=== PATIENT | female | born 1970 | race Caucasian/White ===

== ENCOUNTER → 2019-01-21 | Outpatient (CLI) | payer MEDICARE, OTHER ==
--- NOTE | 2019-01-21 13:21 | CT ---
EXAMINATION TYPE: CT abdomen pelvis wo con DATE OF EXAM: 01/21/2019 COMPARISON: 07/06/2015 HISTORY: Right sided pain with occasional bulging. CT DLP: 724 mGycm Automated exposure control for dose reduction was used. TECHNIQUE: Helical acquisition of images was performed from the lung bases through the pelvis. FINDINGS: LOWER THORAX: Bilateral breast implants are partially visualized. Few coronary calcifications are see n. Postsurgical changes of the gastroesophageal junction are noted. Lung bases are well aerated. LIVER/GB: Unremarkable unenhanced morphology. Cholecystectomy clips are seen. PANCREAS: No significant abnormality is seen. SPLEEN: No significant abnormality is seen. ADRENALS: There is a lipid rich 1.4 cm left adrenal adenoma. Right adrenal gland is unremarkable. KIDNEYS: No nephrolithiasis or hydronephrosis is seen. FREE AIR: No free air is visualized ADENOPATHY: Numerous sub-5 mm periaortic and retroperitoneal as well as central mesenteric lymph nod es are present. No greater than 1 cm short axis lymph node is seen in the abdomen or pelvis although portions of the pelvis are obscured by spray artifact from the right hip arthroplasty and limited. URINARY BLADDER: No significant abnormality is seen. OSSEOUS STRUCTURES: Postsurgical change of the spine is present with donor site from the right iliac bone from prior autograft. Right femoral arthroplasty is also present. BOWEL: Bowel is suboptimally evaluated without contrast. Portions of the descending colon are decomp ressed further limiting evaluation. Evaluation of the mass was nondiagnostic. Partial colectomy is se en within the right hemicolon. No dilated large or small bowel. No perienteric or pericolonic fat str anding. No intra-abdominal abscess is seen. OTHER: Atrophy is seen within the anterior left hip musculature IMPRESSION: Postsurgical changes of the colon with no evidence for acute inflammatory process nor obs truction.
== END | disposition home or self-care (01) ==
LOC: RADCTMAIN 11:55
PROVIDERS: ATTEND Surgery Plastic and Reconstructive Surgery
DX: K57.32 Diverticulitis of large intestine without perforation or abscess without bleeding (principal); Z90.49 Acquired absence of other specified parts of digestive tract
CPT/HCPCS: 74176

== ENCOUNTER 2019-02-18 08:36 | Day surgery (SDC) | payer MEDICARE, OTHER ==
[2019-01-28 10:23] VITALS: BMI 20.3
--- NOTE | 2019-02-17 20:36 | P.GSHP ---
History of Present Illness H&P Date: 02/18/19 CHIEF COMPLAINT: GERD and colon screen HISTORY OF PRESENT ILLNESS: The patient is a 48-year-old female who presents with gastroesophageal reflux disease and need for colon screen. Upper and lower endoscopy were offered for further evaluation and management. PAST MEDICAL HISTORY: Please see list. PAST SURGICAL HISTORY: Please see list. MEDICATIONS: Please see list. ALLERGIES: Please see list. SOCIAL HISTORY: No illicit drug use FAMILY HISTORY: No reports of Crohn disease or ulcerative colitis. REVIEW OF ORGAN SYSTEMS: CONSTITUTIONAL: No reports of fevers or chills. GI: Denies any blood in stools or constipation. PHYSICAL EXAM: VITAL SIGNS: Stable GENERAL: Well-developed pleasant in no acute distress. HEENT: No scleral icterus. Extraocular movements grossly intact. Moist buccal mucosa. NECK: Supple without lymphadenopathy. CHEST: Unlabored respirations. Equal bilateral excursions. CARDIOVASCULAR: Regular rate and rhythm. Distal 2+ pulses. ABDOMEN: Soft, nondistended. MUSCULOSKELETAL: No clubbing, cyanosis, or edema. ASSESSMENT: 1. Gastroesophageal reflux disease 2. Colon screen. PLAN: 1. 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 hx of sepsis 2018, states from staph infection History of Any Multi-Drug Resistant Organisms: None Reported Past Surgical History: Appendectomy, Back Surgery, Bariatric Surgery, Bowel Resection, Breast Surgery, Cholecystectomy, Hysterectomy, Joint Replacement, Orthopedic Surgery, Tonsillectomy, Tubal Ligation Additional Past Surgical History / Comment(s): josy mastectomy, lymph nodes out on left side,thyroidectomy,back surgery X 5,Gastric Bypass Surgery (Mynor-en-Y) 2004 at [facility] by Dr. Vargas, bowel resection in January 2015 due to perf with colonoscopy, incisional HERNIA (02/2015), VENTRAL HERNIA (07/2015), R ankle surgery x 2, L breast bx, tummy tuck, thyroid bx, knee arthroscopy (unsure which), bx R clavicle. rt shoulder x2, neck fusion x2, josy wrist carpal tunnel, josy elbow sx, mediport in and out now. metal in neck and back. rt hip replacement, out with spacer, and back in again Past Anesthesia/Blood Transfusion Reactions: No Reported Reaction Additional Past Anesthesia/Blood Transfusion Reaction / Comment(s): blood transfusion in past Past Psychological History: Anxiety, Depression Additional Psychological History / Comment(s): . Smoking Status: Former smoker Past Alcohol Use History: Rare Additional Past Alcohol Use History / Comment(s): SMOKED APPROX 2YRS A TEEN Past Drug Use History: Marijuana Additional Drug Use History / Comment(s): occasional use, instructed to hold 24 hrs prior to procedure - Past Family History Mother Family Medical History: Cancer Additional Family Medical History / Comment(s): BILE DUCT CANCER- of at age 59 yrs. Father Family Medical History: Coronary Artery Disease (CAD), Hypertension Additional Family Medical History / Comment(s): CABG 2015 Sister(s) Family Medical History: Cancer Additional Family Medical History / Comment(s): BREAST CANCER Medications and Allergies Home Medications Medication Instructions Recorded Confirmed Type Ferrous Sulfate [Feosol] 325 mg PO BID 05/22/14 02/16/19 History Budesonide-Formot 160-4.5 Mcg 2 puff INHALATION RT-BID PRN 03/28/15 02/16/19 History [Symbicort 160-4.5 Mcg Inhaler] Cholecalciferol [Vitamin D3 (25 2,000 unit PO MO 11/22/15 02/16/19 History Mcg = 1000 Iu)] Exemestane [Aromasin] 25 mg PO DAILY 11/22/15 02/16/19 History Melatonin 3 mg PO HS 11/22/15 02/16/19 History Ibuprofen [Motrin] 800 mg PO TID 02/08/16 02/16/19 History Potassium Chloride ER [K-Dur 20] 20 meq PO DAILY 02/08/16 02/16/19 History Divalproex [Depakote] 500 mg PO BID #60 tablet. 02/09/16 02/16/19 Rx Albuterol Nebulized [Ventolin 2.5 mg INHALATION Q6H PRN 01/28/19 02/16/19 History Nebulized] Alendronate Sodium [Fosamax] 70 mg PO MO 01/28/19 02/16/19 History Levothyroxine Sodium [Synthroid] 200 mcg PO DAILY 01/28/19 02/16/19 History Omeprazole [PriLOSEC] 40 mg PO BID 01/28/19 02/16/19 History Sucralfate [Carafate] 1 gm PO ACHS 01/28/19 02/16/19 History buPROPion XL [Wellbutrin Xl] 300 mg PO QAM 01/28/19 02/16/19 History Allergies Allergy/AdvReac Type Severity Reaction Status Date / Time Iodinated Contrast- Oral and Allergy Unknown Rash/Hives Verified 02/16/19 11:23 IV Dye [Iodinated Contrast Media - IV Dye] Penicillins Allergy Rash/Hives/ Verified 02/16/19 11:23 VOMITING tetracycline Allergy Rash/Hives/ Verified 02/16/19 11:23 VOMITING duloxetine HCl AdvReac Nausea & Verified 02/16/19 11:23 [From Cymbalta] Vomiting
[~2019-02-18 08:36] MED LIST: LACTATED RINGERS 1,000 ML IV SCH; LIDOCAINE 1% 20 ML VIAL (10MG/ML) FOR IV START INTRADERMA PRN
[2019-02-18 08:57] VITALS: TEMP 98.1
[2019-02-18] MEDS ORDERED: fentaNYL (PF) 50 MCG/ML 2 ML AMP IV ONE (09:29)
[2019-02-18] MEDS ORDERED: PROPOFOL 10 MG/ML 20 ML VIAL IV ONE (09:45)
[2019-02-18] MEDS ORDERED: LIDOCAINE 1% INJ 10MG/ML (20 ML MDV) ONE (09:45)
[2019-02-18 10:26] VITALS: BP 116/85; PULSE 82; RESP 18
[2019-02-18 10:57] LABS: HCT 34.4 % (34.0-46.0); HGB 11.5 gm/dL (11.4-16.0); MCHC 33.3 g/dL (31.0-37.0); MCV 95.9 fL (80.0-100.0); Mean Platelet Volume 7.7; Platelet Count 292 k/uL (150-450); RBC 3.59 m/uL (3.80-5.40); RDW 13.7 % (11.5-15.5); WBC 6.9 k/uL (3.8-10.6)
[2019-02-18 11:14] LABS: INR 0.9 (<1.2); Prothrombin Time 9.7 sec (9.0-12.0)
[2019-02-18 11:17] LABS: Partial Thromboplastin Time 21.8 sec (22.0-30.0)
--- NOTE | 2019-02-18 11:17 | P.PCN ---
Date of Procedure: 02/18/19 Description of Procedure: PREOPERATIVE DIAGNOSIS: Dysphagia. Nausea with vomiting. POSTOPERATIVE DIAGNOSIS: Dysphagia. Morbid obesity. Gastrojejunal stricture without chronic ulcer without perforation OPERATION: Esophagogastrojejunoscopy with balloon dilatation from 16 to 20 mm. Esophagogastrojejunoscopy with cold biopsy forceps Mynor jejunal limb SURGEON: Jacy Maldonado MD ANESTHESIA: MAC. INDICATIONS: The patient is a 48-year-old female who presents with a history of dysphagia, including new-onset nausea and vomiting. Benefits and risks of the procedure were described. Informed consent was obtained. DESCRIPTION: The patient was brought into the endoscopy suite and laid in the left lateral decubitus position. After a timeout was confirmed, the procedure was initiated. An Olympus gastroscope was passed along the posterior oropharynx down to the distal esophagus where the squamocolumnar junction was unremarkable. The gastric pouch was entered. A gastrojejunal stricture of 12 mm was found as the adult gastroscope was 16 mm in size. A [employer] balloon dilator was placed through the scope. Final insufflation up to 20 mm was performed with a total of 2 minutes. The scope was advanced up to 60 cm from the incisors into the Mynor limb with cold forceps biopsies obtained with hemosiderin found along the mucosa. The mucosa of the gastrojejunal anastomosis was intact. No chronic gastrojejunal marginal ulcer was encountered. No full-thickness injury was encountered. The GI tract was desufflated. The patient tolerated the procedure well. FINDINGS: Squamocolumnar junction with chronic erosive esophagitis, LA grade B Long blind jejunal limb 8 cm Stricture of approximately 16 mm encountered. No chronic gastrojejunal ulceration encountered. Successful balloon dilatation to 20 mm. The scope was advanced up to 60 cm from the incisors into the Mynor limb with cold forceps biopsies obtained with hemosiderin found along the mucosa. RECOMMENDATIONS: Upper endoscopy as needed.
--- NOTE | 2019-02-18 11:26 | P.PCN ---
Date of Procedure: 02/18/19 Description of Procedure: PREOPERATIVE DIAGNOSIS: Colonoscopy screening. 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 SURGEON: Jacy Maldonado MD. ANESTHESIA: MAC. INDICATIONS: The patient is a 48-year-old female who presents for colonoscopy screening. Last colonoscopy 5 years ago. Benefits and risks were described and informed consent was obtained. DESCRIPTION OF PROCEDURE: The patient had undergone Gatorade, MiraLAX and Dulcolax prep. She had been brought into the operating room and laid in the left lateral decubitus position. After adequate intravenous sedation, the rectum was examined with 2% lidocaine jelly. No external hemorrhoids were encountered. The rectal tone was within n ormal limits. No lesions were palpated in the rectal vault. An Olympus colonoscope was advanced until the ileocolic anastomosis was clearly viewed. The prep was fair. The scope was removed with visualization of each mucosal fold. No scattered diverticulosis was encountered. No colonic polyps were found. No evidence of focal colitis was found. Retroflexion of the scope demonstrated grade 1 internal hemorrhoids without active bleeding or inflammation. The colon was desufflated. The patient had tolerated the procedure well. Withdrawal time was over 6 minutes. FINDINGS: Aronchick preparation quality scale 3 (1-5) No internal hemorrhoids No external prolapsed hemorrhoids. No arteriovenous malformations. No adenomatous polyps. No focal colitis. RECOMMENDATIONS: Lower endoscopy in 1 year for history of Zimmer syndrome, high risk for recurrent colon cancer Plan - Discharge Summary Discharge Rx Participant: No New Discharge Prescriptions: No Action Ferrous Sulfate [Feosol] 325 mg PO BID Budesonide-Formot 160-4.5 Mcg [Symbicort 160-4.5 Mcg Inhaler] 2 puff INHALATION RT-BID PRN PRN Reason: Shortness Of Breath Cholecalciferol [Vitamin D3 (25 Mcg = 1000 Iu)] 2,000 unit PO MO Melatonin 3 mg PO HS Exemestane [Aromasin] 25 mg PO DAILY Potassium Chloride ER [K-Dur 20] 20 meq PO DAILY Ibuprofen [Motrin] 800 mg PO TID Divalproex [Depakote] 500 mg PO BID #60 tablet. buPROPion XL [Wellbutrin Xl] 300 mg PO QAM Sucralfate [Carafate] 1 gm PO ACHS Omeprazole [PriLOSEC] 40 mg PO BID Levothyroxine Sodium [Synthroid] 200 mcg PO DAILY Alendronate Sodium [Fosamax] 70 mg PO MO Albuterol Nebulized [Ventolin Nebulized] 2.5 mg INHALATION Q6H PRN PRN Reason: Shortness Of Breath Discharge Medication List Ferrous Sulfate [Feosol] 325 mg PO BID 05/22/14 [History] Budesonide-Formot 160-4.5 Mcg [Symbicort 160-4.5 Mcg Inhaler] 2 puff INHALATION RT-BID PRN 03/28/15 [History] Cholecalciferol [Vitamin D3 (25 Mcg = 1000 Iu)] 2,000 unit PO MO 11/22/15 [History] Exemestane [Aromasin] 25 mg PO DAILY 11/22/15 [History] Melatonin 3 mg PO HS 11/22/15 [History] Ibuprofen [Motrin] 800 mg PO TID 02/08/16 [History] Potassium Chloride ER [K-Dur 20] 20 meq PO DAILY 02/08/16 [History] Divalproex [Depakote] 500 mg PO BID #60 tablet. 02/09/16 [Rx] Albuterol Nebulized [Ventolin Nebulized] 2.5 mg INHALATION Q6H PRN 01/28/19 [History] Alendronate Sodium [Fosamax] 70 mg PO MO 01/28/19 [History] Levothyroxine Sodium [Synthroid] 200 mcg PO DAILY 01/28/19 [History] Omeprazole [PriLOSEC] 40 mg PO BID 01/28/19 [History] Sucralfate [Carafate] 1 gm PO ACHS 01/28/19 [History] buPROPion XL [Wellbutrin Xl] 300 mg PO QAM 01/28/19 [History] Follow up Appointment(s)/Referral(s): Jacy Maldonado MD [STAFF PHYSICIAN] - 03/09/19 Patient Instructions/Handouts: *Surgery [facility] - (Anesthesia) Endoscopy Discharge Instructions, Hiatal Hernia (DC), Colonoscopy (DC), Upper Endoscopy (DC) Activity/Diet/Wound Care/Special Instructions: Repeat colonoscopy in 1 year2019 Discharge Disposition: HOME SELF-CARE
[2019-02-18 11:34] LABS: ALT 27 U/L (9-52); AST 17 U/L (14-36); Albumin 4.4 g/dL (3.5-5.0); Alkaline Phosphatase 79 U/L (38-126); Anion Gap 10 mmol/L; Blood Urea Nitrogen 17 mg/dL (7-17); Calcium 9.1 mg/dL (8.4-10.2); Carbon Dioxide 17 mmol/L (22-30); Chloride 116 mmol/L (98-107); Cholesterol 177 mg/dL (<200); Glucose 79 mg/dL (74-99); HDL Cholesterol 72 mg/dL (40-60); LDL Cholesterol,Calculated 86 mg/dL (0-99); Magnesium 2.1 mg/dL (1.6-2.3); Phosphorus 4.3 mg/dL (2.5-4.5); Potassium 3.6 mmol/L (3.5-5.1); Sodium 143 mmol/L (137-145); Total Bilirubin 0.4 mg/dL (0.2-1.3); Total Protein 7.1 g/dL (6.3-8.2); Triglycerides 95 mg/dL (<150)
[2019-02-18 17:17] LABS: Parathyroid Hormone Intact 60.7 pg/mL (14.0-72.0)
[2019-02-18 17:19] LABS: Iron Saturation 29.24 (12.00-45.00)
[2019-02-18 17:27] LABS: Vitamin D 25 Hydroxy 51.7 ng/mL (30.0-100.0)
[2019-02-18 17:31] LABS: Folate, Serum 12.1 ng/mL
[2019-02-18 19:49] LABS: Hemoglobin A1C 5.3 % (4.0-6.0)
[2019-02-21 15:09] LABS: Zinc, Serum 73 ug/dL (60-130)
[2019-02-22 08:02] LABS: Vitamin A 83 ug/dL (38-106)
[2019-02-22 21:53] LABS: Selenium 147 mcg/L (63-160)
[2019-02-23 08:16] LABS: Vit B1(Thiamine) 75 ug/L (38-122)
== END 2019-02-18 11:13 | disposition home or self-care (01) ==
LOC: ORWHC2ENDO 08:36
PROVIDERS: ATTEND Surgery Plastic and Reconstructive Surgery
DX: Z12.11 Encounter for screening for malignant neoplasm of colon (principal); K56.699 Other intestinal obstruction unspecified as to partial versus complete obstruction; K44.9 Diaphragmatic hernia without obstruction or gangrene; K22.10 Ulcer of esophagus without bleeding; Z85.038 Personal history of other malignant neoplasm of large intestine; Z90.49 Acquired absence of other specified parts of digestive tract; K64.0 First degree hemorrhoids; E66.01 Morbid (severe) obesity due to excess calories; Z68.20 Body mass index [BMI] 20.0-20.9, adult; Z98.84 Bariatric surgery status; Z85.3 Personal history of malignant neoplasm of breast; Z85.850 Personal history of malignant neoplasm of thyroid; Z85.41 Personal history of malignant neoplasm of cervix uteri; Z15.09 Genetic susceptibility to other malignant neoplasm; E83.19 Other disorders of iron metabolism; I10 Essential (primary) hypertension; E78.5 Hyperlipidemia, unspecified; J44.9 Chronic obstructive pulmonary disease, unspecified; K21.9 Gastro-esophageal reflux disease without esophagitis; I69.351 Hemiplegia and hemiparesis following cerebral infarction affecting right dominant side; D64.9 Anemia, unspecified; G40.909 Epilepsy, unspecified, not intractable, without status epilepticus; E07.9 Disorder of thyroid, unspecified; Z86.19 Personal history of other infectious and parasitic diseases; Z87.891 Personal history of nicotine dependence; F41.9 Anxiety disorder, unspecified; F32.9 Major depressive disorder, single episode, unspecified; Z85.71 Personal history of Hodgkin lymphoma; Z79.1 Long term (current) use of non-steroidal anti-inflammatories (NSAID); Z79.811 Long term (current) use of aromatase inhibitors; Z79.890 Hormone replacement therapy; Z79.51 Long term (current) use of inhaled steroids; Z79.899 Other long term (current) drug therapy; Z88.0 Allergy status to penicillin; Z88.8 Allergy status to other drugs, medicaments and biological substances; Z88.1 Allergy status to other antibiotic agents; Z91.041 Radiographic dye allergy status
CPT/HCPCS: 84255; 84134; 88305; 84425; 80061; 80053; 82607; 82728; 82525; 82746; 83540; 83550; 83735; 84100; 84443; 84590; 84630; 85027; 85610; 85730; 88313; 82306; 83970; 83036; 43239; 43245; J2001; J3010; J2704; C1726; G0105; 45378

== ENCOUNTER 2019-03-29 14:33 | Emergency (ER) | payer MEDICARE, OTHER ==
[2019-03-29 14:48] VITALS: TEMP 98.4
[2019-03-29] MEDS ORDERED: SODIUM CHLORIDE 0.9% 500 ML 500 ML IV STA (15:16)
[2019-03-29] MEDS ORDERED: MORPHINE SULFATE 4 MG/ML SYRINGE IVP STA (15:16)
--- NOTE | 2019-03-29 15:23 | ED ---
General Adult HPI - General Chief complaint: Extremity Injury, Lower Stated complaint: Hip/leg infection Time Seen by Provider: 03/29/19 14:50 Source: patient, RN notes reviewed Mode of arrival: wheelchair Limitations: physical limitation - History of Present Illness Initial comments: 48-year-old female with a complicated past medical history presents to the emergency department for a chief complaint of left hip pain. Patient states this has been ongoing for about a week. Denies any injuries. States it is painful to move her hip. States the pain radiates down to her left side back to her knee as well. States it is ssharp and shooting in nature. States she had a hip infection of the right hip about a year ago after a hip replacement. States this feels similar. No fevers or chills. Patient does have a history of drug use but denies any history of IV drug abuse. No changes in bladder or bowel function Patient has no other complaints at this time including shortness of breath, chest pain, abdominal pain, nausea or vomiting, headache, or visual changes. - Related Data Home Medications Medication Instructions Recorded Confirmed Ferrous Sulfate [Feosol] 325 mg PO BID 05/22/14 02/18/19 Budesonide-Formot 160-4.5 Mcg 2 puff INHALATION RT-BID PRN 03/28/15 02/18/19 [Symbicort 160-4.5 Mcg Inhaler] Cholecalciferol [Vitamin D3 (25 2,000 unit PO MO 11/22/15 02/18/19 Mcg = 1000 Iu)] Exemestane [Aromasin] 25 mg PO DAILY 11/22/15 02/18/19 Melatonin 3 mg PO HS 11/22/15 02/18/19 Ibuprofen [Motrin] 800 mg PO TID 02/08/16 02/18/19 Potassium Chloride ER [K-Dur 20] 20 meq PO DAILY 02/08/16 02/18/19 Albuterol Nebulized [Ventolin 2.5 mg INHALATION Q6H PRN 01/28/19 02/18/19 Nebulized] Alendronate Sodium [Fosamax] 70 mg PO MO 01/28/19 02/18/19 Levothyroxine Sodium [Synthroid] 200 mcg PO DAILY 01/28/19 02/18/19 Omeprazole [PriLOSEC] 40 mg PO BID 01/28/19 02/18/19 Sucralfate [Carafate] 1 gm PO ACHS 01/28/19 02/18/19 buPROPion XL [Wellbutrin Xl] 300 mg PO QAM 01/28/19 02/18/19 Previous Rx's Medication Instructions Recorded Divalproex [Depakote] 500 mg PO BID #60 tablet. 02/09/16 predniSONE 50 mg PO DAILY #5 tablet 03/29/19 Allergies Allergy/AdvReac Type Severity Reaction Status Date / Time Iodinated Contrast- Oral and Allergy Unknown Rash/Hives Verified 03/29/19 14:48 IV Dye [Iodinated Contrast Media - IV Dye] Penicillins Allergy Rash/Hives/ Verified 03/29/19 14:48 VOMITING tetracycline Allergy Rash/Hives/ Verified 03/29/19 14:48 VOMITING duloxetine HCl AdvReac Nausea & Verified 03/29/19 14:48 [From Cymbalta] Vomiting Review of Systems ROS Statement: Those systems with pertinent positive or pertinent negative responses have been documented in the HPI. ROS Other: All systems not noted in ROS Statement are negative. Past Medical History Past Medical History: Cancer, COPD, CVA/TIA, GERD/Reflux, Hyperlipidemia, Hypertension, Musculoskeletal Disorder, Seizure Disorder, Skin Disorder, Thyroid Disorder Additional Past Medical History / Comment(s): Currently hand fx rt hand-cast present,Pt is an unreliable historian. She gives permission for her sister, Mathew Camarillo to assist with pt's PMH. THICKENING OF THE ESOPHAGUS. 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 History of Any Multi-Drug Resistant Organisms: None Reported Past Surgical History: Appendectomy, Back Surgery, Bariatric Surgery, Bowel Resection, Breast Surgery, Cholecystectomy, Hysterectomy, Orthopedic Surgery, Tonsillectomy, Tubal Ligation Additional Past Surgical History / Comment(s): mastectomy (bilateral) - lymph nodes out on left side,thyroidectomy,back surgery X 5,Gastric Bypass Surgery (Mynor-en-Y) 2004 at [facility] by Dr. Vargas, bowel resection in January 2015 due to perf with colonoscopy, incisional HERNIA (02/2015), VENTRAL HERNIA (07/2015), colonoscopy 09/24/15, R ankle surgery x 2, L breast bx, tummy tuck, thyroid bx, knee arthroscopy (unsure which), bx R clavicle. Past Anesthesia/Blood Transfusion Reactions: No Reported Reaction Additional Past Anesthesia/Blood Transfusion Reaction / Comment(s): blood transfusion 07/02/2015 Past Psychological History: Anxiety, Depression Smoking Status: Never smoker Past Alcohol Use History: Occasional Past Drug Use History: Marijuana - Past Family History Mother Family Medical History: Cancer Additional Family Medical History / Comment(s): BILE DUCT CANCER- of at age 59 yrs. Father Family Medical History: Coronary Artery Disease (CAD), Hypertension Additional Family Medical History / Comment(s): CABG 2015 Sister(s) Family Medical History: Cancer Additional Family Medical History / Comment(s): BREAST CANCER General Exam Limitations: physical limitation General appearance: alert, in no apparent distress Head exam: Present: atraumatic, normocephalic, normal inspection Eye exam: Present: normal appearance, PERRL, EOMI. Absent: scleral icterus, conjunctival injection, periorbital swelling ENT exam: Present: normal exam, mucous membranes moist Neck exam: Present: normal inspection, full ROM. Absent: tenderness, meningismus, lymphadenopathy Respiratory exam: Present: normal lung sounds bilaterally. Absent: respiratory distress, wheezes, rales, rhonchi, stridor Cardiovascular Exam: Present: regular rate, normal rhythm, normal heart sounds. Absent: bradycardia, tachycardia, irregular rhythm Extremities exam: Present: full ROM (Patient has about 45 flexion of the left hip with neutral extension), normal capillary refill (Capillary refill less than 2 seconds, DP pulse 2+ in the left lower extremity), other (Skin is intact, no evidence of erythema or cellulitis). Absent: tenderness, pedal edema, joint swelling, calf tenderness Course Vital Signs 03/29/19 14:46 Temperature 98.4 F Pulse Rate 96 Respiratory 18 Rate Blood Pressure 100/71 O2 Sat by Pulse 100 Oximetry Medical Decision Making - Medical Decision Making 48-year-old female presents for left hip pain times one week. States it radiates from her left lower back all the way down to her knee. States it is sharp and shooting in nature. There is mild weakness in the left lower leg but this is because of pain. Norvasc recess intact left lower extremity. No skin changes. Vitals are stable, no evidence of fever. CBC and CMP unremarkable. CRP is negative. Hip x-ray shows mild osteoarthritis, which could be contributing to patient's pain. I did order a computed tomography scan of the lumbar spine which did show multilevel fusion surgery. No focal bone destruction. Scar tissue and chronic hematoma noted. Patient given pain medication was made did help her to feel somewhat better. Patient will be started on steroids treated for sciatica. States she does have an orthopedic surgeon but he is retired. Patient will be given referral to additional surgeon. - Lab Data Result diagrams: 03/29/19 15:30 03/29/19 15:30 Lab Results 03/29/19 03/29/19 Range/Units 15:30 15:30 WBC 7.3 (3.8-10.6) k/uL RBC 3.52 L (3.80-5.40) m/uL Hgb 11.2 L (11.4-16.0) gm/dL Hct 34.2 (34.0-46.0) % MCV 97.0 (80.0-100.0) fL MCH 31.8 (25.0-35.0) pg MCHC 32.8 (31.0-37.0) g/dL RDW 14.5 (11.5-15.5) % Plt Count 328 (150-450) k/uL Neutrophils % 58 % Lymphocytes % 29 % Monocytes % 7 % Eosinophils % 2 % Basophils % 1 % Neutrophils # 4.3 (1.3-7.7) k/uL Lymphocytes # 2.1 (1.0-4.8) k/uL Monocytes # 0.5 (0-1.0) k/uL Eosinophils # 0.2 (0-0.7) k/uL Basophils # 0.0 (0-0.2) k/uL Sodium 142 (137-145) mmol/L Potassium 4.1 (3.5-5.1) mmol/L Chloride 114 H (98-107) mmol/L Carbon Dioxide 21 L (22-30) mmol/L Anion Gap 7 mmol/L BUN 14 (7-17) mg/dL Creatinine 0.54 (0.52-1.04) mg/dL Est GFR (CKD-EPI)AfAm >90 (>60 ml/min/1.73 sqM) Est GFR (CKD-EPI)NonAf >90 (>60 ml/min/1.73 sqM) Glucose 94 (74-99) mg/dL Calcium 8.6 (8.4-10.2) mg/dL Total Bilirubin 0.2 (0.2-1.3) mg/dL AST 19 (14-36) U/L ALT 10 (9-52) U/L Alkaline Phosphatase 77 (38-126) U/L C-Reactive Protein <5.0 (<10.0) mg/L Total Protein 6.3 (6.3-8.2) g/dL Albumin 3.9 (3.5-5.0) g/dL Disposition Clinical Impression: Sciatic leg pain Disposition: HOME SELF-CARE Condition: Good Instructions (If sedation given, give patient instructions): Hip Pain (ED), Lumbar Radiculopathy (ED) Additional Instructions: Please take steroid as directed. Please follow-up with surgeon in 1-2 days. Return here for any worsening symptoms. Prescriptions: predniSONE 50 mg PO DAILY #5 tablet Is patient prescribed a controlled substance at d/c from ED?: No Referrals: Asad Olivares DO [Primary Care Provider] - 1-2 days Evelia Lopez DO [Doctor of Osteopathic Medicine] - 1-2 days Time of Disposition: 17:44
[2019-03-29 15:56] LABS: Basophils % (A) 1 %; Eosinophils # (A) 0.2 k/uL (0-0.7); Eosinophils % (A) 2 %; HCT 34.2 % (34.0-46.0); HGB 11.2 gm/dL (11.4-16.0); Lymphocytes # (A) 2.1 k/uL (1.0-4.8); Lymphocytes % (A) 29 %; MCH 31.8 pg (25.0-35.0); MCHC 32.8 g/dL (31.0-37.0); Mean Platelet Volume 7.3; Monocytes # (A) 0.5 k/uL (0-1.0); Monocytes % (A) 7 %; Neutrophils # (A) 4.3 k/uL (1.3-7.7); Neutrophils % (A) 58 %; Platelet Count 328 k/uL (150-450); RBC 3.52 m/uL (3.80-5.40); RDW 14.5 % (11.5-15.5); WBC 7.3 k/uL (3.8-10.6)
[2019-03-29 16:04] LABS: ALT 10 U/L (9-52); AST 19 U/L (14-36); African American GFR (CKD) >90 (>60 ml/min/1.73 sqM); Albumin 3.9 g/dL (3.5-5.0); Alkaline Phosphatase 77 U/L (38-126); Anion Gap 7 mmol/L; Blood Urea Nitrogen 14 mg/dL (7-17); C Reactive Protein <5.0 mg/L (<10.0); Calcium 8.6 mg/dL (8.4-10.2); Carbon Dioxide 21 mmol/L (22-30); Chloride 114 mmol/L (98-107); Glucose 94 mg/dL (74-99); Potassium 4.1 mmol/L (3.5-5.1); Sodium 142 mmol/L (137-145); Total Bilirubin 0.2 mg/dL (0.2-1.3); Total Protein 6.3 g/dL (6.3-8.2)
--- NOTE | 2019-03-29 16:14 | XR ---
Left hip HISTORY: Pain 2 views of the left hip Relation to CT scan 01/21/2019 There is minimal marginal spurring present. Joint space and alignment maintained. Bone mineralization is reduced. No fracture or dislocation. IMPRESSION: Mild osteoarthritic changes suspected.
--- NOTE | 2019-03-29 17:05 | CT ---
EXAMINATION TYPE: CT lumbar spine wo con DATE OF EXAM: 03/29/2019 4:48 PM COMPARISON: None HISTORY: Low back and Left hip pain without injury. Multiple Lumbar surgeries. CT DLP: 741.3 mGycm Automated exposure control for dose reduction was used. Unenhanced CT of the lumbar spine was performed. Bone and soft tissue window settings are submitted as well as coronal and sagittal reconstructions. Lumbar vertebra have normal alignment. There is disc prosthesis at at multiple levels. There is remov al of the multiple fusion screws compared to old CT scan of 07/06/2015. There is no compression fractu re. There is multilevel laminectomy defect. There is fluid density at the surgery site from L4 to S1. I see no focal bone destruction. Sacrum appears intact. IMPRESSION: Multilevel fusion surgery. Disc prosthesis from L2 to S1. No focal bone destruction seen to suggest o steomyelitis. Posterior mixed density at the surgery site consistent with scar tissue and chronic hem atoma.
[2019-03-29] MEDS ORDERED: methylPREDNISolone SOD SUCCI 125 MG/2 ML VIAL IV STA (17:45)
[2019-03-29 18:18] VITALS: BP 110/68; PULSE 66; RESP 16
== END 2019-03-29 18:18 | disposition home or self-care (01) ==
LOC: EC 14:33
DX: M54.42 Lumbago with sciatica, left side (principal); M16.12 Unilateral primary osteoarthritis, left hip; S62.91XA Unspecified fracture of right hand, initial encounter for closed fracture; J44.9 Chronic obstructive pulmonary disease, unspecified; D64.9 Anemia, unspecified; F32.9 Major depressive disorder, single episode, unspecified; F41.9 Anxiety disorder, unspecified; Z88.0 Allergy status to penicillin; Z88.1 Allergy status to other antibiotic agents; Z88.8 Allergy status to other drugs, medicaments and biological substances; Z91.041 Radiographic dye allergy status; Z79.1 Long term (current) use of non-steroidal anti-inflammatories (NSAID); Z79.890 Hormone replacement therapy; Z79.899 Other long term (current) drug therapy; Z86.73 Personal history of transient ischemic attack (TIA), and cerebral infarction without residual deficits; Z87.39 Personal history of other diseases of the musculoskeletal system and connective tissue; Z85.038 Personal history of other malignant neoplasm of large intestine; Z85.3 Personal history of malignant neoplasm of breast; Z85.41 Personal history of malignant neoplasm of cervix uteri; Z85.850 Personal history of malignant neoplasm of thyroid; Z85.71 Personal history of Hodgkin lymphoma; Z90.710 Acquired absence of both cervix and uterus; Z90.13 Acquired absence of bilateral breasts and nipples; E89.0 Postprocedural hypothyroidism; Z98.1 Arthrodesis status; Z98.890 Other specified postprocedural states; Z97.8 Presence of other specified devices; X58.XXXA Exposure to other specified factors, initial encounter
CPT/HCPCS: 99284; 96374; 96375; 36415; 80053; 85025; 86140; 87040; 73502; 72131; J2270; J2930

== ENCOUNTER 2019-04-18 08:25 | Day surgery (SDC) | payer MEDICARE, OTHER ==
[~2019-04-18 08:25] MED LIST changes: +DEXAMETHASONE SOD PHOSPHATE 10 MG/ML 1 ML VIAL IV ONE; +ONDANSETRON 4 MG/2 ML VIAL IVP ONE; +Pre Op ABX Message 1 EACH MISC MISCELLANE ONE
[2019-04-18] MEDS: fentaNYL (PF) 50 MCG/ML 2 ML AMP IV ONE ×6 (09:13→13:29)
[2019-04-18] MEDS ORDERED: DEXAMETHASONE SOD PHOS (MDV) 100 MG/10 ML VIAL IV ONE (09:14)
[2019-04-18] MEDS ORDERED: ONDANSETRON 4 MG/2 ML VIAL IVP ONE (09:14)
[2019-04-18] MEDS ORDERED: HEPARIN SODIUM,PORCINE 5,000 UNIT/ML 1 ML VIAL SQ STA (10:44)
[2019-04-18] MEDS ORDERED: ceFAZolin IN SWFI 2 GM/20 ML SYRINGE IVP ONE (10:44)
--- NOTE | 2019-04-18 10:44 | P.GSHP ---
History of Present Illness H&P Date: 04/18/19 CHIEF COMPLAINT: History of intra-abdominal adhesions HISTORY OF PRESENT ILLNESS: The patient is a 48-year-old female who presents with history of intra-abdominal adhesions from multiple prior surgeries including increasing abdominal pain. She now presents for diagnostic laparoscopy including lysis of adhesions. PAST MEDICAL HISTORY: Please see list. PAST SURGICAL HISTORY: Please see list. MEDICATIONS: Please see list. ALLERGIES: Please see list. SOCIAL HISTORY: No illicit drug use FAMILY HISTORY: No reports of Crohn disease or ulcerative colitis. REVIEW OF ORGAN SYSTEMS: CONSTITUTIONAL: No reports of fevers or chills. GI: Denies any blood in stools or constipation. PHYSICAL EXAM: VITAL SIGNS: Stable GENERAL: Well-developed pleasant and in no acute distress. HEENT: No scleral icterus. Extraocular movements grossly intact. Moist buccal mucosa. NECK: Supple without lymphadenopathy. CHEST: Unlabored respirations. Equal bilateral excursions. CARDIOVASCULAR: Regular rate and rhythm. Distal 2+ pulses. ABDOMEN: Soft, diffuse abdominal tenderness. No peritonitis. MUSCULOSKELETAL: No clubbing, cyanosis, or edema. ASSESSMENT: 1. Diffuse abdominal pain. 2. History of multiple abdominal surgeries. 3. Intra-abdominal adhesions. PLAN: 1. Robotic lysis of adhesions were described in detail including risk of injury to the intestine, need for further surgery, and open technique. 2. DVT prophylaxis. 3. Antibiotic prophylaxis. Past Medical History Past Medical History: Cancer, COPD, CVA/TIA, GERD/Reflux, Hyperlipidemia, Hypertension, Musculoskeletal Disorder, Seizure Disorder, Skin Disorder, Thyroid Disorder Additional Past Medical History / Comment(s): Currently hand fx rt hand-cast present,Pt is an unreliable historian. She gives permission for her sister, Mathew Camarillo to assist with pt's PMH. THICKENING OF THE ESOPHAGUS. 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 History of Any Multi-Drug Resistant Organisms: None Reported Past Surgical History: Appendectomy, Back Surgery, Bariatric Surgery, Bowel Resection, Breast Surgery, Cholecystectomy, Hysterectomy, Orthopedic Surgery, Tonsillectomy, Tubal Ligation Additional Past Surgical History / Comment(s): mastectomy (bilateral) - lymph nodes out on left side,thyroidectomy,back surgery X 5,Gastric Bypass Surgery (Mynor-en-Y) 2005 at [facility] by Dr. Vargas, bowel resection in January 2015 due to perf with colonoscopy, incisional HERNIA (02/2015), VENTRAL HERNIA (07/2015), colonoscopy 09/24/15, R ankle surgery x 2, L breast bx, tummy tuck, thyroid bx, knee arthroscopy (unsure which), bx R clavicle. Past Anesthesia/Blood Transfusion Reactions: No Reported Reaction Additional Past Anesthesia/Blood Transfusion Reaction / Comment(s): blood transfusion 07/02/2015 Past Psychological History: Anxiety, Depression Additional Psychological History / Comment(s): Pt states she is not suicidal. Pt's sister states she is not suicidal. Pt lives with her 11 yr old son in a home she shares with her [employer] friends. She has a walker she uses at times. She drives. She has no home care. Cloth Designer requested last visit information from Dr. Tabares's office-information sent indicates pt had an office visit where pt wanted more pain medication-she had had 100 norco prescribed 01/18/16 and was to refer to pain management with Dr. Landeros. Smoking Status: Never smoker Past Alcohol Use History: Occasional Additional Past Alcohol Use History / Comment(s): tried smoking as a teen and didn't like it-maybe smoked for 2 yrs. Past Drug Use History: Marijuana Additional Drug Use History / Comment(s): Sister Mathew states pt does not use any drugs to her knowledge. See psychological history section. - Past Family History Mother Family Medical History: Cancer Additional Family Medical History / Comment(s): BILE DUCT CANCER- of at age 59 yrs. Father Family Medical History: Coronary Artery Disease (CAD), Hypertension Additional Family Medical History / Comment(s): CABG 2015 Sister(s) Family Medical History: Cancer Additional Family Medical History / Comment(s): BREAST CANCER Medications and Allergies Home Medications Medication Instructions Recorded Confirmed Type Ferrous Sulfate [Feosol] 325 mg PO BID 05/22/14 04/18/19 History Budesonide-Formot 160-4.5 Mcg 2 puff INHALATION RT-BID PRN 03/28/15 04/18/19 History [Symbicort 160-4.5 Mcg Inhaler] Cholecalciferol [Vitamin D3 (25 2,000 unit PO MO 11/22/15 04/18/19 History Mcg = 1000 Iu)] Exemestane [Aromasin] 25 mg PO DAILY 11/22/15 04/18/19 History Melatonin 3 mg PO HS 11/22/15 04/18/19 History Ibuprofen [Motrin] 800 mg PO TID 02/08/16 04/18/19 History Potassium Chloride ER [K-Dur 20] 20 meq PO DAILY 02/08/16 04/18/19 History Divalproex [Depakote] 500 mg PO BID #60 tablet. 02/09/16 04/18/19 Rx Albuterol Nebulized [Ventolin 2.5 mg INHALATION Q6H PRN 01/28/19 04/18/19 History Nebulized] Alendronate Sodium [Fosamax] 70 mg PO MO 01/28/19 04/18/19 History Levothyroxine Sodium [Synthroid] 200 mcg PO DAILY 01/28/19 04/18/19 History Omeprazole [PriLOSEC] 40 mg PO BID 01/28/19 04/18/19 History Sucralfate [Carafate] 1 gm PO ACHS 01/28/19 04/18/19 History buPROPion XL [Wellbutrin Xl] 300 mg PO QAM 01/28/19 04/18/19 History Allergies Allergy/AdvReac Type Severity Reaction Status Date / Time Iodinated Contrast- Oral and Allergy Unknown Rash/Hives Verified 04/18/19 08:39 IV Dye [Iodinated Contrast Media - IV Dye] Penicillins Allergy Rash/Hives/ Verified 04/18/19 08:39 VOMITING tetracycline Allergy Rash/Hives/ Verified 04/18/19 08:39 VOMITING duloxetine HCl AdvReac Nausea & Verified 04/18/19 08:39 [From Cymbalta] Vomiting Surgical - Exam Vital Signs Temp Pulse Resp BP Pulse Ox 98.7 F 89 16 128/90 96 04/18/19 09:15 04/18/19 09:15 04/18/19 09:15 04/18/19 09:15 04/18/19 09:15
[2019-04-18] MEDS ORDERED: PROPOFOL 10 MG/ML 20 ML VIAL IV ONE (11:17)
[2019-04-18] MEDS ORDERED: MIDAZOLAM 2 MG/2 ML VIAL ONE (11:17)
[2019-04-18] MEDS ORDERED: LIDOCAINE 1% INJ 10MG/ML (20 ML MDV) ONE (11:17)
[2019-04-18] MEDS ORDERED: NEOSTIGMINE 1 MG/ML 10 ML VIAL ONE (11:17)
[2019-04-18] MEDS ORDERED: GLYCOPYRROLATE 0.2 MG/ML 2 ML VIAL ONE (11:17)
[2019-04-18] MEDS ORDERED: fentaNYL (PF) 50 MCG/ML 2 ML AMP ONE (11:17)
[2019-04-18] MEDS ORDERED: ROCURONIUM BROMIDE 10 MG/ML 10 ML VIAL IV ONE (11:17)
[2019-04-18] MEDS ORDERED: BUPIVACAINE (PF) 0.25% 30 ML VIAL SQ ONE (11:52)
[2019-04-18] MEDS ORDERED: LACTATED RINGERS 1,000 ML IV ONE (11:57)
[2019-04-18 12:51] VITALS: TEMP 97.8
--- NOTE | 2019-04-18 13:02 | P.OP ---
Date of Procedure: 04/18/19 Description of Procedure: SURGEON: JAYSHREE LEONARDO MD PREOPERATIVE DIAGNOSES: 1. Right lower quadrant abdominal pain 2. History of multiple abdominal surgeries 3. History of peritoneal adhesions 4. History of colon cancer 5. History of incisional hernia repair, right lower quadrant 6. Chronic pain syndrome 7. History of gastric bypass 8. History of breast cancer 9. History of uterine cancer POSTOPERATIVE DIAGNOSES: 1. Right lower quadrant abdominal pain 2. History of multiple abdominal surgeries 3. History of peritoneal adhesions 4. History of colon cancer 5. History of incisional hernia repair, right lower quadrant 6. Chronic pain syndrome 7. History of gastric bypass 8. History of breast cancer 9. History of uterine cancer OPERATION: 1. Robotic-assisted da Maribel Xi laparoscopic with extensive lysis of adhesions over 45 minutes. ESTIMATED BLOOD LOSS: 5 mL. SPECIMENS REMOVED: None. COMPLICATIONS: None. OPERATIVE FINDINGS: 1. No ventral hernias identified. 2. Adhesions along the right lower quadrant and prior incisional hernia repair with mesh 3. small bowel unremarkable INDICATIONS: The patient is a 48-year-old female who presents with right lower quadrant abdominal pain. Surgical intervention with diagnostic laparoscopy, lysis of adhesions were described. Informed consent was obtained. Robotic assisted laparoscopic approach was described. Benefits and risks of the procedure including but not limited to bleeding, infection, injury to the biliary tree was described. Informed consent was obtained. DESCRIPTION OF PROCEDURE: Patient was brought to the operating room, placed in supine position. After general induction, the abdomen had been prepped and draped in standard sterile fashion. The robotic da Maribel XI system was primed. After a timeout protocol was performed, the patient had been prepped and draped in standard sterile fashion. The robot was docked along the left lateral abdomen. The patient was repositioned in with left side up. Please note prior to docking of the robot; however, a 5 mm 0 degrees laparoscopic trocar entry was performed along the left upper quadrant. Next, three 8 mm robotic ports were placed along the left lateral abdominal wall. The camera 8-mm port was maintained along mid-lateral abdomen. Please note that the ports were placed at least 10 to 15 cm away from the target anatomy. Instruments including graspers and vessel sealer were interchanged by the assistant distribution manager. I had sat at the console. Omental adhesions along the right lower abdominal wall were addressed using vessel sealer. No evidence of incisional hernia was identified. The rest of the abdomen was unremarkable for small bowel pathology. Lysis of adhesions over 20 minutes was performed. No evidence of small bowel obstruction was found. The robot was undocked. All pneumoperitoneum instruments were evacuated from the abdominal cavity. The incisions were reapproximated using 4-0 Monocryl in an interrupted subcuticular fashion. Please note along the trocar sites, local anesthetic was placed as a field block prior to insertion of all instruments. Exofin was applied to the skin. At the end of the procedure needle, sponge, and instrument count had been verified correct by the patient services technician. The patient was transferred to postanesthesia care unit in stable condition. Console time 21 minutes Plan - Discharge Summary New Discharge Prescriptions: New Acetaminophen [Tylenol] 325 mg PO Q4H #30 tab HYDROcodone/APAP 5-325MG [Thompson 5-325] 1 tab PO Q6HR PRN 3 Days #10 tab PRN Reason: Pain Discontinued Ibuprofen [Motrin] 800 mg PO TID No Action Ferrous Sulfate [Feosol] 325 mg PO BID Budesonide-Formot 160-4.5 Mcg [Symbicort 160-4.5 Mcg Inhaler] 2 puff INHALATION RT-BID PRN PRN Reason: Shortness Of Breath Cholecalciferol [Vitamin D3 (25 Mcg = 1000 Iu)] 2,000 unit PO MO Melatonin 3 mg PO HS Exemestane [Aromasin] 25 mg PO DAILY Potassium Chloride ER [K-Dur 20] 20 meq PO DAILY Divalproex [Depakote] 500 mg PO BID #60 tablet. buPROPion XL [Wellbutrin XL] 300 mg PO QAM Sucralfate [Carafate] 1 gm PO ACHS Omeprazole [PriLOSEC] 40 mg PO BID Levothyroxine Sodium [Synthroid] 200 mcg PO DAILY Alendronate Sodium [Fosamax] 70 mg PO MO Albuterol Nebulized [Ventolin Nebulized] 2.5 mg INHALATION Q6H PRN PRN Reason: Shortness Of Breath Discharge Medication List Ferrous Sulfate [Feosol] 325 mg PO BID 05/22/14 [History] Budesonide-Formot 160-4.5 Mcg [Symbicort 160-4.5 Mcg Inhaler] 2 puff INHALATION RT-BID PRN 03/28/15 [History] Cholecalciferol [Vitamin D3 (25 Mcg = 1000 Iu)] 2,000 unit PO MO 11/22/15 [History] Exemestane [Aromasin] 25 mg PO DAILY 11/22/15 [History] Melatonin 3 mg PO HS 11/22/15 [History] Potassium Chloride ER [K-Dur 20] 20 meq PO DAILY 02/08/16 [History] Divalproex [Depakote] 500 mg PO BID #60 tablet.dr 02/09/16 [Rx] Albuterol Nebulized [Ventolin Nebulized] 2.5 mg INHALATION Q6H PRN 01/28/19 [History] Alendronate Sodium [Fosamax] 70 mg PO MO 01/28/19 [History] Levothyroxine Sodium [Synthroid] 200 mcg PO DAILY 01/28/19 [History] Omeprazole [PriLOSEC] 40 mg PO BID 01/28/19 [History] Sucralfate [Carafate] 1 gm PO ACHS 01/28/19 [History] buPROPion XL [Wellbutrin XL] 300 mg PO QAM 01/28/19 [History] Acetaminophen [Tylenol] 325 mg PO Q4H #30 tab 04/18/19 [Rx] HYDROcodone/APAP 5-325MG [Thompson 5-325] 1 tab PO Q6HR PRN 3 Days #10 tab 04/18/19 [Rx] Activity/Diet/Wound Care/Special Instructions: May shower. No bath tub soaks until 04/28/2019. No lifting over 10 pounds until 04/28/2019 Discharge Disposition: HOME SELF-CARE
[2019-04-18 13:49] LABS: Glucose,Whole Blood 113 mg/dL (75-99)
[2019-04-18 14:19] VITALS: RESP 18
[2019-04-18] MEDS ORDERED: HYDROcodone/APAP 5-325MG 1 EACH TAB PO ONE (14:21)
[2019-04-18 14:58] VITALS: BP 112/70; PULSE 90
== END 2019-04-18 15:08 | disposition home or self-care (01) ==
LOC: OR 08:25
PROVIDERS: ATTEND Surgery Plastic and Reconstructive Surgery
DX: K66.0 Peritoneal adhesions (postprocedural) (postinfection) (principal); J44.9 Chronic obstructive pulmonary disease, unspecified; K21.9 Gastro-esophageal reflux disease without esophagitis; E78.5 Hyperlipidemia, unspecified; I10 Essential (primary) hypertension; G40.909 Epilepsy, unspecified, not intractable, without status epilepticus; E11.9 Type 2 diabetes mellitus without complications; F41.9 Anxiety disorder, unspecified; F32.9 Major depressive disorder, single episode, unspecified; G89.4 Chronic pain syndrome; Z98.84 Bariatric surgery status; E07.9 Disorder of thyroid, unspecified; J42 Unspecified chronic bronchitis; Z90.13 Acquired absence of bilateral breasts and nipples; Z90.49 Acquired absence of other specified parts of digestive tract; E89.0 Postprocedural hypothyroidism; L55.9 Sunburn, unspecified; D64.9 Anemia, unspecified; I69.351 Hemiplegia and hemiparesis following cerebral infarction affecting right dominant side; Z85.3 Personal history of malignant neoplasm of breast; Z85.41 Personal history of malignant neoplasm of cervix uteri; Z85.038 Personal history of other malignant neoplasm of large intestine; Z85.850 Personal history of malignant neoplasm of thyroid; Z85.71 Personal history of Hodgkin lymphoma; Z87.891 Personal history of nicotine dependence; Z80.0 Family history of malignant neoplasm of digestive organs; Z80.3 Family history of malignant neoplasm of breast; Z97.2 Presence of dental prosthetic device (complete) (partial); Z79.1 Long term (current) use of non-steroidal anti-inflammatories (NSAID); Z79.890 Hormone replacement therapy; Z79.51 Long term (current) use of inhaled steroids; Z79.899 Other long term (current) drug therapy; Z88.0 Allergy status to penicillin; Z88.8 Allergy status to other drugs, medicaments and biological substances; Z88.1 Allergy status to other antibiotic agents; Z91.041 Radiographic dye allergy status; Z79.811 Long term (current) use of aromatase inhibitors; Z82.49 Family history of ischemic heart disease and other diseases of the circulatory system
CPT/HCPCS: 49329; J2250; J1644; J2710; J2405; J2001; J3010; J1100; J2704; J0690

== ENCOUNTER 2020-12-19 22:43 | Inpatient (IN) | payer MEDICARE, OTHER ==
--- NOTE | 2020-12-19 22:46 | ED ---
Recheck HPI - General Stated Complaint: GI bleed Time Seen by Provider: 12/19/20 22:46 Source: RN notes reviewed, old records reviewed Mode of arrival: EMS Limitations: no limitations - History of Present Illness Initial Comments: This is a 50-year-old female to the ER for evaluation patient here is accepted for evaluation regards to weakness, accepted in transfer for evaluation of significant GI bleed with anemia. Weakness. Lightheaded. Complaint: abnormal lab (Low hemoglobin) -: hour(s) Initial Visit For: other (weakness) Returns Today for: Called Because of Abnormal Lab/Test Symptoms Since Prior Visit: worsening pain Context: called for abnormal lab result (Transferred for evaluation regarding hemoglobin GI bleed) Associated Symptoms: none Treatments Prior to Arrival: IV/IO (Patient given transfusion) - Related Data Home Medications Medication Instructions Recorded Confirmed Ferrous Sulfate [Feosol] 325 mg PO DAILY 05/22/14 12/20/20 Budesonide-Formot 160-4.5 Mcg 2 puff INHALATION RT-BID 03/28/15 12/20/20 [Symbicort 160-4.5 Mcg Inhaler] Exemestane [Aromasin] 25 mg PO DAILY 11/22/15 12/20/20 Melatonin 3 mg PO HS 11/22/15 12/20/20 Potassium Chloride ER [K-Dur 20] 20 meq PO DAILY 02/08/16 12/20/20 Alendronate Sodium [Fosamax] 70 mg PO MO 01/28/19 12/20/20 Omeprazole [PriLOSEC] 40 mg PO BID 01/28/19 12/20/20 Sucralfate [Carafate] 1 gm PO ACHS 01/28/19 12/20/20 buPROPion XL [Wellbutrin XL] 300 mg PO DAILY 01/28/19 12/20/20 ALPRAZolam [Xanax] 2 mg PO QID PRN 12/20/20 12/20/20 Dextroamphetamine/Amphetamine 20 mg PO BID PRN 12/20/20 12/20/20 [Adderall] Divalproex [Depakote] 250 mg PO TID 12/20/20 12/20/20 Ibuprofen [Motrin] 600 mg PO Q8HR PRN 12/20/20 12/20/20 Levothyroxine Sodium [Synthroid] 175 mcg PO DAILY 12/20/20 12/20/20 Metoprolol Tartrate [Lopressor] 25 mg PO BID 12/20/20 12/20/20 Allergies Allergy/AdvReac Type Severity Reaction Status Date / Time Iodinated Contrast Media Allergy Unknown Rash/Hives Verified 12/20/20 06:56 [Iodinated Contrast Media - IV Dye] Penicillins Allergy Rash/Hives/ Verified 12/20/20 06:56 VOMITING tetracycline Allergy Rash/Hives/ Verified 12/20/20 06:56 VOMITING duloxetine HCl AdvReac Nausea & Verified 12/20/20 06:56 [From Cymbalta] Vomiting Review of Systems ROS Statement: Those systems with pertinent positive or pertinent negative responses have been documented in the HPI. ROS Other: All systems not noted in ROS Statement are negative. Past Medical History Past Medical History: Cancer, COPD, CVA/TIA, GERD/Reflux, Hyperlipidemia, Hypertension, Musculoskeletal Disorder, Seizure Disorder, Skin Disorder, Thyroid Disorder Additional Past Medical History / Comment(s): Currently hand fx rt hand-cast present,Pt is an unreliable historian. She gives permission for her sister, Mathew Camarillo to assist with pt's PMH. THICKENING OF THE ESOPHAGUS. 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 History of Any Multi-Drug Resistant Organisms: None Reported Past Surgical History: Appendectomy, Back Surgery, Bariatric Surgery, Bowel Resection, Breast Surgery, Cholecystectomy, Hysterectomy, Orthopedic Surgery, Tonsillectomy, Tubal Ligation Additional Past Surgical History / Comment(s): mastectomy (bilateral) - lymph nodes out on left side,thyroidectomy,back surgery X 5,Gastric Bypass Surgery (Mynor-en-Y) 2004 at [facility] by Dr. Vargas, bowel resection in January 2015 due to perf with colonoscopy, incisional HERNIA (02/2015), VENTRAL HERNIA (07/2015), colonoscopy 09/24/15, R ankle surgery x 2, L breast bx, tummy tuck, thyroid bx, knee arthroscopy (unsure which), bx R clavicle. Past Anesthesia/Blood Transfusion Reactions: No Reported Reaction Additional Past Anesthesia/Blood Transfusion Reaction / Comment(s): blood transfusion 07/02/2015 Past Psychological History: Anxiety, Depression Additional Psychological History / Comment(s): Pt states she is not suicidal. Pt's sister states she is not suicidal. Pt lives with her 11 yr old son in a home she shares with her [employer] friends. She has a walker she uses at times. She drives. She has no home care. Branch Store Manager requested last visit information from Dr. Tabares's office-information sent indicates pt had an office visit where pt wanted more pain medication-she had had 100 norco prescribed 01/18/16 and was to refer to pain management with Dr. Landeros. Past Alcohol Use History: Occasional Additional Past Alcohol Use History / Comment(s): tried smoking as a teen and didn't like it-maybe smoked for 2 yrs. Past Drug Use History: Marijuana Additional Drug Use History / Comment(s): Sister Mathew states pt does not use any drugs to her knowledge. See psychological history section. - Past Family History Mother Family Medical History: Cancer Additional Family Medical History / Comment(s): BILE DUCT CANCER- of at age 59 yrs. Father Family Medical History: Coronary Artery Disease (CAD), Hypertension Additional Family Medical History / Comment(s): CABG 2016 Sister(s) Family Medical History: Cancer Additional Family Medical History / Comment(s): BREAST CANCER General Exam - General Exam Comments Initial Comments: Pale General appearance: alert, in no apparent distress, anxious Head exam: Present: atraumatic, normocephalic, normal inspection Eye exam: Present: normal appearance, PERRL, EOMI. Absent: scleral icterus, conjunctival injection, periorbital swelling ENT exam: Present: normal exam, mucous membranes moist Neck exam: Present: normal inspection. Absent: tenderness, meningismus, lymphadenopathy Respiratory exam: Present: normal lung sounds bilaterally. Absent: respiratory distress, wheezes, rales, rhonchi, stridor Cardiovascular Exam: Present: regular rate, normal rhythm, normal heart sounds. Absent: systolic murmur, diastolic murmur, rubs, gallop, clicks GI/Abdominal exam: Present: soft, normal bowel sounds. Absent: distended, tenderness, guarding, rebound, rigid Extremities exam: Present: normal inspection, full ROM, normal capillary refill. Absent: tenderness, pedal edema, joint swelling, calf tenderness Back exam: Present: normal inspection Neurological exam: Present: alert, oriented X3, CN II-XII intact Psychiatric exam: Present: normal affect, normal mood Skin exam: Present: warm, dry, intact, normal color. Absent: rash Course Vital Signs 12/19/20 12/20/20 12/20/20 22:50 01:30 04:34 Temperature 99.1 F 100.5 F H Pulse Rate 82 79 88 Pulse Rate [ Pulse Oximetery ] Respiratory 16 20 18 Rate Blood Pressure 111/75 101/73 184/52 Blood Pressure [Left Arm] O2 Sat by Pulse 100 100 100 Oximetry 12/20/20 12/20/20 12/20/20 08:00 08:20 11:35 Temperature 98.6 F 97.2 F L Pulse Rate Pulse Rate [ 73 73 75 Pulse Oximetery ] Respiratory 16 16 20 Rate Blood Pressure Blood Pressure 111/80 94/71 [Left Arm] O2 Sat by Pulse 100 92 L Oximetry - Reevaluation(s) Reevaluation #1: Medical record is reviewed Transferring paperwork is reviewed Patient symptoms are improved from prior evaluation and now and no distress here in the ER is improved Spoke with patient regarding findings, questions are answered Medical Decision Making - Medical Decision Making 50 female to the ER for significant GI bleed with anemia patient currently being transfused and will admit the ICU for continued evaluation and monitoring - Lab Data Result diagrams: 12/21/20 17:39 12/21/20 08:16 Critical Care Time Critical Care Time: Yes Total Critical Care Time: 31 Disposition Clinical Impression: GI bleed, Anemia Disposition: ADMITTED IP TO THIS HOSP Condition: Fair Is patient prescribed a controlled substance at d/c from ED?: No
[2020-12-19] MEDS ORDERED: NALOXONE 0.4 MG/ML 1 ML VIAL IV PRN (23:23)
--- NOTE | 2020-12-20 03:13 | P.HPIM ---
History of Present Illness H&P Date: 12/20/20 the patient is a 50-year-old female with an extensive PMH including colon cancer (diagnosed 2016 with subsequent chemo, radiation, and resection, now in remission), history of Hodgkin's lymphoma (also in remission as per patient), polysubstance abuse, multiple abdominal surgeries, hypothyroidism, COPD, and aortic stenosis who presented to the [facility] emergency room with complaints of bloody diarrhea. the patient was subsequently transferred to [place] emergency room for further evaluation. The patient reports that she had a bowel movement at around 5 PM tonight with large amounts of gross red blood. she reports that shortly after the bowel movement, she lost consciousness while on the toilet seat and fell to the side, hitting her lateral left chest wall and her left arm on the side of the tub. She denied head trauma. she reports regaining consciousness shortly after an noticing bright red blood every were at which time she called her who activated EMS. The patient notes that she has been having dark stools over the past 2-3 days. The patient has been following at [facility] for GI and oncology with Dr Murillo. At time of interview, the patient reports diffuse abdominal pain, 3 out of 10. The patient reports feeling weak along with complaints of nausea. She denied vomiting, chest pain, shortness of breath, headaches, numbness, tingling. The patient had undergone extensive evaluation at [facility] which was all reviewed. The patient was reportedly a hemoglobin of 13.9 3 days ago, and was noted to be 7.9 today. 2 units of PRBCs were ordered. CBC had revealed a WBC count of 11.4, platelets 279, and hemoglobin 7.9. INR was 1.05, PTT 23, glucose 109, BUN 31, creatinine 0.83, sodium 132, potassium 3.0, chloride 102, CO2 18, magnesium 1.6, AST 16, ALT 10, lactic acid 2.2, and lipase 32. Chest x- ray had revealed no displaced rib fractures. Review of Systems Pertinent positives and negatives as discussed in HPI, a complete review of systems was performed and all other systems are negative. Past Medical History Past Medical History: Cancer, COPD, CVA/TIA, GERD/Reflux, Hyperlipidemia, Hypertension, Musculoskeletal Disorder, Seizure Disorder, Skin Disorder, Thyroid Disorder Additional Past Medical History / Comment(s): Currently hand fx rt hand-cast present,Pt is an unreliable historian. She gives permission for her sister, Mathew Camarillo to assist with pt's PMH. THICKENING OF THE ESOPHAGUS. 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 History of Any Multi-Drug Resistant Organisms: None Reported Past Surgical History: Appendectomy, Back Surgery, Bariatric Surgery, Bowel Resection, Breast Surgery, Cholecystectomy, Hysterectomy, Orthopedic Surgery, Tonsillectomy, Tubal Ligation Additional Past Surgical History / Comment(s): mastectomy (bilateral) - lymph nodes out on left side,thyroidectomy,back surgery X 5,Gastric Bypass Surgery (Mynor-en-Y) [address] [facility] by Dr. Vargas, bowel resection in January 2015 due to perf with colonoscopy, incisional HERNIA (02/2015), VENTRAL HERNIA (07/2015), colonoscopy 09/24/15, R ankle surgery x 2, L breast bx, tummy tuck, thyroid bx, knee arthroscopy (unsure which), bx R clavicle. Past Anesthesia/Blood Transfusion Reactions: No Reported Reaction Additional Past Anesthesia/Blood Transfusion Reaction / Comment(s): blood transfusion 07/02/2015 Past Psychological History: Anxiety, Depression Additional Psychological History / Comment(s): Pt states she is not suicidal. Pt's sister states she is not suicidal. Pt lives with her 11 yr old son in a home she shares with her orthodox friends. She has a walker she uses at times. She drives. She has no home care. Welcome Hostess requested last visit information from Dr. Tabares's office-information sent indicates pt had an office visit where pt wanted more pain medication-she had had 100 norco prescribed 01/18/16 and was to refer to pain management with Dr. Landeros. Past Alcohol Use History: Occasional Additional Past Alcohol Use History / Comment(s): tried smoking as a teen and didn't like it-maybe smoked for 2 yrs. Past Drug Use History: Marijuana Additional Drug Use History / Comment(s): Sister Mathew states pt does not use any drugs to her knowledge. See psychological history section. - Past Family History Mother Family Medical History: Cancer Additional Family Medical History / Comment(s): BILE DUCT CANCER- of at age 59 yrs. Father Family Medical History: Coronary Artery Disease (CAD), Hypertension Additional Family Medical History / Comment(s): CABG 2015 Sister(s) Family Medical History: Cancer Additional Family Medical History / Comment(s): BREAST CANCER Medications and Allergies Home Medications Medication Instructions Recorded Confirmed Type Ferrous Sulfate [Feosol] 325 mg PO BID 05/22/14 04/18/19 History Budesonide-Formot 160-4.5 Mcg 2 puff INHALATION RT-BID PRN 03/28/15 04/18/19 History [Symbicort 160-4.5 Mcg Inhaler] Cholecalciferol [Vitamin D3 (25 2,000 unit PO MO 11/22/15 04/18/19 History Mcg = 1000 Iu)] Exemestane [Aromasin] 25 mg PO DAILY 11/22/15 04/18/19 History Melatonin 3 mg PO HS 11/22/15 04/18/19 History Potassium Chloride ER [K-Dur 20] 20 meq PO DAILY 02/08/16 04/18/19 History Divalproex [Depakote] 500 mg PO BID #60 tablet. 02/09/16 04/18/19 Rx Albuterol Nebulized [Ventolin 2.5 mg INHALATION Q6H PRN 01/28/19 04/18/19 History Nebulized] Alendronate Sodium [Fosamax] 70 mg PO MO 01/28/19 04/18/19 History Levothyroxine Sodium [Synthroid] 200 mcg PO DAILY 01/28/19 04/18/19 History Omeprazole [PriLOSEC] 40 mg PO BID 01/28/19 04/18/19 History Sucralfate [Carafate] 1 gm PO ACHS 01/28/19 04/18/19 History buPROPion XL [Wellbutrin XL] 300 mg PO QAM 01/28/19 04/18/19 History Acetaminophen [Tylenol] 325 mg PO Q4H #30 tab 04/18/19 Rx HYDROcodone/APAP 5-325MG [[place] 1 tab PO Q6HR PRN 3 Days #10 tab 04/18/19 Rx 5-325] Allergies Allergy/AdvReac Type Severity Reaction Status Date / Time Iodinated Contrast Media Allergy Unknown Rash/Hives Verified 04/18/19 08:39 [Iodinated Contrast Media - IV Dye] Penicillins Allergy Rash/Hives/ Verified 04/18/19 08:39 VOMITING tetracycline Allergy Rash/Hives/ Verified 04/18/19 08:39 VOMITING duloxetine HCl AdvReac Nausea & Verified 04/18/19 08:39 [From Cymbalta] Vomiting Physical Exam Vitals: Vital Signs Temp Pulse Resp BP Pulse Ox 12/20/20 01:30 100.5 F H 79 20 101/73 100 12/19/20 22:50 99.1 F 82 16 111/75 100 Intake and Output 12/19/20 12/19/20 12/20/20 14:59 22:59 06:59 Other: Weight 56.699 kg General: non toxic, chronically ill-appearing female, no distress, appears older than stated age Derm: no unusual rashes/lesions no unusual ecchymoses, warm, dry Head: atraumatic, normocephalic, symmetric Eyes: EOMI, no lid lag, anicteric sclera, pupils equal round reactive to light ENT: Nose and ears atraumatic, no thrush, no pharyngeal erythema Neck: No thyromegaly, no cervical lymphadenopathy, trachea midline, supple Mouth: no lip lesion, mucus membranes moist Cardiovascular: S1S2 reg, systolic murmur appreciated, positive posterior tibial pulse bilateral, no edema, capillary refill less than 2 seconds Lungs: CTA bilateral, no rhonchi, no rales , no accessory muscle use Abdominal: soft, mild diffuse tenderness to palpation, no guarding, no appreciable organomegaly, normal bowel sounds Ext: no gross muscle atrophy, muscle strength 3 out of 5 in all 4 extremities grossly, no contractures, Neuro: CN II-XI grossly intact, light touch intact all 4 extremities, finger to nose within normal limits, Psych: Alert, oriented, appropriate affect Assessment and Plan Plan: Acute blood loss anemia secondary to GI bleeding -Continue to monitor CBC every 8 hourly -Status post 2 units PRBCs -Consult Surgery (patient follows with Dr Maldonado due to history of multiple abdominal surgeries and has undergone EGD/Colonoscopies with her) -Fall precautions -IV fluids -Continue with Protonix Hypokalemia and hypomagnesemia -Replace and monitor Lactic acidosis -Monitor to resolution Chronic conditions: COPD, hypothyroidism, GERD -Continue home medications DVT prophylaxis -IPCDs The patient is admitted with an anticipated greater than 2 midnight stay for evaluation of blood loss anemia CODE STATUS: Full Code Discussed with: Patient Anticipated discharge date: 2-[address]: home A total of 40 minutes was spent on the care of this complex patient more than 50% of the time was spent in counseling and care coordination.
[2020-12-20 06:20] LABS: Basophils % (A) 0 %; Eosinophils # (A) 0.1 k/uL (0-0.7); Eosinophils % (A) 1 %; HGB 9.9 gm/dL (11.4-16.0); Lymphocytes # (A) 2.4 k/uL (1.0-4.8); Lymphocytes % (A) 29 %; MCH 32.7 pg (25.0-35.0); MCHC 35.5 g/dL (31.0-37.0); MCV 92.2 fL (80.0-100.0); Mean Platelet Volume 8.4; Monocytes # (A) 0.5 k/uL (0-1.0); Monocytes % (A) 6 %; Neutrophils # (A) 5.1 k/uL (1.3-7.7); Neutrophils % (A) 62 %; Platelet Count 202 k/uL (150-450); RBC 3.03 m/uL (3.80-5.40); RDW 13.1 % (11.5-15.5); WBC 8.2 k/uL (3.8-10.6)
[2020-12-20 06:29] LABS: African American GFR (CKD) >90 (>60 ml/min/1.73 sqM); Anion Gap 4 mmol/L; Blood Urea Nitrogen 33 mg/dL (7-17); Calcium 7.6 mg/dL (8.4-10.2); Carbon Dioxide 17 mmol/L (22-30); Chloride 113 mmol/L (98-107); Glucose 87 mg/dL (74-99); Magnesium 1.9 mg/dL (1.6-2.3); Non-African American GFR(CKD) >90 (>60 ml/min/1.73 sqM); Phosphorus 3.9 mg/dL (2.5-4.5); Potassium 3.6 mmol/L (3.5-5.1); Sodium 134 mmol/L (137-145)
[2020-12-20] MEDS: PANTOPRAZOLE 40 MG/10 ML VIAL IV SCH ×2 (08:02→20:18)
[2020-12-20] MEDS ORDERED: ALPRAZolam 1 MG TAB PO PRN (08:08)
[2020-12-20] MEDS ORDERED: NON FORMULARY DRUG (Dextroamphetamine/Amphetamine [Adderall] 20 MG Tablet) PO PRN (08:08)
[2020-12-20] MEDS ORDERED: FERROUS SULFATE 325 MG TAB PO SCH (09:00)
[2020-12-20] MEDS: ONDANSETRON 4 MG/2 ML VIAL IVP PRN (09:05)
[2020-12-20] MEDS ORDERED: SODIUM CHLORIDE 0.9% 500 ML 500 ML IV ONE (10:56)
[2020-12-20] MEDS ORDERED: LIDOCAINE 1% INJ 10MG/ML (20 ML MDV) ONE (11:00)
[2020-12-20] MEDS ORDERED: PHENYLEPHRINE-0.9% NACL SYG 1,000 MCG/10 ML SYRINGE ONE (11:00)
[2020-12-20] MEDS ORDERED: PROPOFOL 10 MG/ML 20 ML VIAL IV ONE (11:00)
--- NOTE | 2020-12-20 11:02 | P.GSCN ---
History of Present Illness Consult date: 12/20/20 History of present illness: CHIEF COMPLAINT: Acute GI bleed HISTORY OF PRESENT ILLNESS: The patient is a 50-year-old female who 1 week ago reported having dark stools. She has history of gastric bypass. As of yesterday she started having hematochezia blood through her rectum. She reports epigastric abdominal pain. She has pre-existing history of gastrojejunal ul cers. Gen. surgery was consulted for further intervention. She reports moderate epigastric abdominal pain. She had been transferred from outside facility and started on blood transfusions from the outside facility. She reported hypotensive episode systolic blood pressure less than 90 requiring r esuscitation. PAST MEDICAL HISTORY: See list and reviewed PAST SURGICAL HISTORY: See list and reviewed MEDICATIONS: See list and reviewed ALLERGIES: See list and reviewed SOCIAL HISTORY: See list and reviewed FAMILY HISTORY: See list and reviewed REVIEW OF ORGAN SYSTEMS: CONSTITUTIONAL: No fevers or chills. Has recent weight loss. Total weight loss over 150 pounds from gastric bypass EYES: Denies any trouble with vision. Wears glasses. HEENT: No difficulties with hearing. No nosebleeds. Has difficulty swallowing. RESPIRATORY: History of chronic obstructive pulmonary disease. CARDIOVASCULAR: Past chest pain, palpitations, or recent heart attacks. He has hypertensive heart disease. GASTROINTESTINAL: Denies fatty food intolerance. Has change in bowel habits and gas bloat. History of colon cancer. History of multiple gastrointestinal cancers. GENITOURINARY: Denies any blood in urine or increased urinary frequency. NEUROLOGICAL: Denies any numbness or tingling along the distal extremities. Has seizure disorders. MUSCULOSKELETAL: Has back pain, stiffness or joint arthritis. Has osteoporosis. SKIN: No current skin cancer. No rash. PSYCHIATRIC: Has depression. No suicidal thoughts. Has anxiety. Has ADHD/ADD ENDOCRINE: Has hypothyroidism. Denies any blood sugar glucose intolerance. HEME/LYMPHATIC: Denies any lumps and bumps around the neck. No recent deep venous thrombosis. ALLERGY/IMMUNOLOGY: No immunoglobulin therapy. No immune deficiencies. BREAST: Denies current breast lumps, pain or nipple discharge. PHYSICAL EXAM: VITALS: Reviewed CONSTITUTIONAL: Well developed and in no acute distress. EYES: Conjuctivae without sclera icterus. Pupils are equally round and reactive to light. Extraocular movements grossly intact. HEAD, EARS, NOSE, THROAT: Moist buccal mucosa. Head is atraumatic, normocephalic. Hears conversational speech. No nasal drainage. NECK: Supple. No JV distention. No thyroidomegaly. RESPIRATORY: Non-labored respirations and equal bilateral excursions. No gross wheezes. CARDIOVASCULAR: Regular rate and rhythm. Palpable 2+ radial pulses. ABDOMEN: Soft. Tender in epigastrium. No peritonitis. LYMPH: No neck lymphadenopathy MUSCULOSKELETAL: Nail and fingers with good capillary refill. SKIN: Warm and well perfused with good skin turgor. NEUROLOGIC: Cranial nerves II through XII grossly intact. Sensation upper and extremities intact. No focal or lateralizing signs. PSYCH: Appropriate affect. Alert and oriented to person, place and time. Displays appropriate insight. CLINCAL LABS: Reviewed. Hemoglobin down from baseline 12.0-9.9. WBC within normal limits. ASSESSMENT: 1. Acute gastrointestinal hemorrhage with hypotensive episode. 2. Recent blood transfusion for acute blood loss anemia 3. Personal history of colon cancer 4. Personal history of gastric ulcer PLAN: 1. Recommend upper endoscopy as her history is suspicious for acute gastric bleeding ulcer 2. IV fluid hydration. 3. After resuscitation, colonoscopy prep 4. Patient elevated risk due to acute bolus anemia, history of gastric bypass and underweight Thank you for this kind consultation. Past Medical History Past Medical History: Cancer, COPD, CVA/TIA, GERD/Reflux, Hyperlipidemia, Hypertension, Musculoskeletal Disorder, Seizure Disorder, Skin Disorder, Thyroid Disorder Additional Past Medical History / Comment(s): Currently hand fx rt hand-cast present,Pt is an unreliable historian. She gives permission for her sister, Mathew Camarillo to assist with pt's PMH. THICKENING OF THE ESOPHAGUS. 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 History of Any Multi-Drug Resistant Organisms: None Reported Past Surgical History: Appendectomy, Back Surgery, Bariatric Surgery, Bowel Resection, Breast Surgery, Cholecystectomy, Hysterectomy, Orthopedic Surgery, Tonsillectomy, Tubal Ligation Additional Past Surgical History / Comment(s): mastectomy (bilateral) - lymph nodes out on left side,thyroidectomy,back surgery X 5,Gastric Bypass Surgery (Mynor-en-Y) 2005 at [facility] by Dr. Vargas, bowel resection in January 2015 due to perf with colonoscopy, incisional HERNIA (02/2015), VENTRAL HERNIA (07/2015), colonoscopy 09/24/15, R ankle surgery x 2, L breast bx, tummy tuck, thyroid bx, knee arthroscopy (unsure which), bx R clavicle. Past Anesthesia/Blood Transfusion Reactions: No Reported Reaction Additional Past Anesthesia/Blood Transfusion Reaction / Comm: blood transfusion 07/02/2015 Past Psychological History: Anxiety, Depression Additional Psychological History / Comment(s): Pt states she is not suicidal. Pt's sister states she is not suicidal. Pt lives with her 11 yr old son in a home she shares with her faith friends. She has a walker she uses at times. She drives. She has no home care. Travel Accommodation Inspector requested last visit information from Dr. Tabares's office-information sent indicates pt had an office visit where pt wanted more pain medication-she had had 100 norco prescribed 01/18/16 and was to refer to pain management with Dr. Landeros. Past Alcohol Use History: Occasional Additional Past Alcohol Use History / Comment(s): tried smoking as a teen and didn't like it-maybe smoked for 2 yrs. Past Drug Use History: Marijuana Additional Drug Use History / Comment(s): Sister Mathew states pt does not use any drugs to her knowledge. See psychological history section. - Past Family History Mother Family Medical History: Cancer Additional Family Medical History / Comment(s): BILE DUCT CANCER- of at age 59 yrs. Father Family Medical History: Coronary Artery Disease (CAD), Hypertension Additional Family Medical History / Comment(s): CABG 2015 Sister(s) Family Medical History: Cancer Additional Family Medical History / Comment(s): BREAST CANCER Medications and Allergies Home Medications Medication Instructions Recorded Confirmed Type Ferrous Sulfate [Feosol] 325 mg PO DAILY 05/22/14 12/20/20 History Budesonide-Formot 160-4.5 Mcg 2 puff INHALATION RT-BID 03/28/15 12/20/20 History [Symbicort 160-4.5 Mcg Inhaler] Exemestane [Aromasin] 25 mg PO DAILY 11/22/15 12/20/20 History Melatonin 3 mg PO HS 11/22/15 12/20/20 History Potassium Chloride ER [K-Dur 20] 20 meq PO DAILY 02/08/16 12/20/20 History Alendronate Sodium [Fosamax] 70 mg PO MO 01/28/19 12/20/20 History Omeprazole [PriLOSEC] 40 mg PO BID 01/28/19 12/20/20 History Sucralfate [Carafate] 1 gm PO ACHS 01/28/19 12/20/20 History buPROPion XL [Wellbutrin XL] 300 mg PO DAILY 01/28/19 12/20/20 History ALPRAZolam [Xanax] 2 mg PO QID PRN 12/20/20 12/20/20 History Dextroamphetamine/Amphetamine 20 mg PO BID PRN 12/20/20 12/20/20 History [Adderall] Divalproex [Depakote] 250 mg PO TID 12/20/20 12/20/20 History Ibuprofen [Motrin] 600 mg PO Q8HR PRN 12/20/20 12/20/20 History Levothyroxine Sodium [Synthroid] 175 mcg PO DAILY 12/20/20 12/20/20 History Metoprolol Tartrate [Lopressor] 25 mg PO BID 12/20/20 12/20/20 History Allergies Allergy/AdvReac Type Severity Reaction Status Date / Time Iodinated Contrast Media Allergy Unknown Rash/Hives Verified 12/20/20 06:56 [Iodinated Contrast Media - IV Dye] Penicillins Allergy Rash/Hives/ Verified 12/20/20 06:56 VOMITING tetracycline Allergy Rash/Hives/ Verified 12/20/20 06:56 VOMITING duloxetine HCl AdvReac Nausea & Verified 12/20/20 06:56 [From Cymbalta] Vomiting Surgical - Exam Vital Signs Temp Pulse Resp BP Pulse Ox 99.1 F 82 16 111/75 100 12/19/20 22:50 12/19/20 22:50 12/19/20 22:50 12/19/20 22:50 12/19/20 22:50 Results - Labs 12/20/20 06:02 12/20/20 06:02 Abnormal Lab Results - Last 24 Hours (Table) 12/20/20 12/20/20 12/20/20 Range/Units 06:02 06:02 06:02 RBC 3.03 L (3.80-5.40) m/uL Hgb 9.9 L (11.4-16.0) gm/dL Hct 28.0 L (34.0-46.0) % Sodium 134 L (137-145) mmol/L Chloride 113 H (98-107) mmol/L Carbon Dioxide 17 L (22-30) mmol/L BUN 33 H (7-17) mg/dL Plasma Lactic Acid Herber <0.5 L (0.7-2.0) mmol/L Calcium 7.6 L (8.4-10.2) mg/dL Diabetes panel 12/20/20 Range/Units 06:02 Sodium 134 L (137-145) mmol/L Potassium 3.6 (3.5-5.1) mmol/L Chloride 113 H (98-107) mmol/L Carbon Dioxide 17 L (22-30) mmol/L BUN 33 H (7-17) mg/dL Creatinine 0.64 (0.52-1.04) mg/dL Glucose 87 (74-99) mg/dL Calcium 7.6 L (8.4-10.2) mg/dL Calcium panel 12/20/20 Range/Units 06:02 Calcium 7.6 L (8.4-10.2) mg/dL Phosphorus 3.9 (2.5-4.5) mg/dL Pituitary panel 12/20/20 Range/Units 06:02 Sodium 134 L (137-145) mmol/L Potassium 3.6 (3.5-5.1) mmol/L Chloride 113 H (98-107) mmol/L Carbon Dioxide 17 L (22-30) mmol/L BUN 33 H (7-17) mg/dL Creatinine 0.64 (0.52-1.04) mg/dL Glucose 87 (74-99) mg/dL Calcium 7.6 L (8.4-10.2) mg/dL Adrenal panel 12/20/20 Range/Units 06:02 Sodium 134 L (137-145) mmol/L Potassium 3.6 (3.5-5.1) mmol/L Chloride 113 H (98-107) mmol/L Carbon Dioxide 17 L (22-30) mmol/L BUN 33 H (7-17) mg/dL Creatinine 0.64 (0.52-1.04) mg/dL Glucose 87 (74-99) mg/dL Calcium 7.6 L (8.4-10.2) mg/dL Assessment and Plan (1) Underweight Current Visit: Yes Status: Acute Code(s): R63.6 - UNDERWEIGHT SNOMED Code(s): 658341134 (2) Gastric bypass status for obesity Current Visit: Yes Status: Acute Code(s): Z98.84 - BARIATRIC SURGERY STATUS SNOMED Code(s): 322056654 (3) GI bleed Current Visit: Yes Status: Acute Code(s): K92.2 - GASTROINTESTINAL HEMORRHAGE, UNSPECIFIED SNOMED Code(s): 01742256 (4) Anemia Current Visit: Yes Status: Chronic Priority: High Code(s): D64.9 - ANEMIA, UNSPECIFIED SNOMED Code(s): 057419927 (5) Anemia due to blood loss, acute Current Visit: No Status: Acute Priority: High Code(s): D62 - ACUTE POSTHEMORRHAGIC ANEMIA SNOMED Code(s): 441326520 (6) Dehydration Current Visit: No Status: Acute Code(s): E86.0 - DEHYDRATION SNOMED Code(s): 35610208 (7) Malignant neoplasm of ascending colon Current Visit: No Status: Acute Code(s): C18.2 - MALIGNANT NEOPLASM OF ASCENDING COLON SNOMED Code(s): 724509105
[2020-12-20] MEDS ORDERED: SODIUM CHLORIDE 0.9% 2,000 ML IV ONE (11:25)
--- NOTE | 2020-12-20 11:25 | P.PCN ---
Date of Procedure: 12/20/20 Description of Procedure: PREOPERATIVE DIAGNOSIS: Acute gastrointestinal bleeding Acute blood loss anemia History of gastrojejunal ulcer History of multiple primary gastrointestinal malignancies. POSTOPERATIVE DIAGNOSIS: Acute upper gastrointestinal bleed from gastric tumor OPERATION: Esophagogastroduodenoscopy SURGEON: Jacy Maldonado MD ANESTHESIA: MAC. INDICATIONS: The patient is a 50-year-old female who presented emergently with acute gastrointestinal bleeding. Benefits and risks of the procedure were described. Informed consent was obtained. DESCRIPTION: The patient was brought into the endoscopy suite and laid in the left lateral decubitus position. An Olympus gastroscope was passed along the posterior oropharynx down to the distal esophagus where fresh blood was identified in the mid to distal esophagus. The gastric pouch was entered and a 3 cm food bezoar versus gastric tumor was identified at the gastrojejunal anastomosis. No arterial bleeding was identified. The scope was passed into the Mynor limb. Additional findings are listed below. Biopsies were avoided due to lack of protected airway and need for operative intervention.The stomach was desufflated. The patient tolerated the procedure well. FINDINGS: Acute upper GI bleed confirmed along the gastric pouch Gastric tumor over 3 cm with signs of recent bleeding. RECOMMENDATIONS: 1. Recommend CT of the abdomen and pelvis with IV and oral contrast for further workup of gastric tumor in patient with pre-existing history of malignancies. 2. Liquid diet. 3. Patient reports taking moderate NSAIDs which is contraindicated for her surgery. 4. Protonix 40 mg IV twice daily 5. IV fluid hydration for acute blood loss anemia and hypotension
[2020-12-20] MEDS ORDERED: SODIUM FERRIC GLUCONAT-SUCROSE 125 MG in SODIUM CHLORIDE 0.9% 100 ML IVPB SCH (12:00)
[2020-12-20] MEDS: METOPROLOL TARTRATE 25 MG TAB PO SCH ×2 (12:27→20:17)
--- NOTE | 2020-12-20 13:39 | P.PN ---
Subjective Progress Note Date: 12/20/20 Principal diagnosis: GI bleed Patient is awake and alert. She underwent EGD this morning. She is complaining of pain in her left rib cage where she had the fall and landed on her side against the bathtub. X-ray at the outside hospital showed no evidence of rib fractures. Patient had one bloody bowel movement this morning. No bowel movement otherwise since this morning. Objective - Vital Signs Vital signs: Vital Signs Temp 97.2 F L 12/20/20 11:35 Pulse 75 12/20/20 11:35 Resp 20 12/20/20 11:35 BP 94/71 12/20/20 11:35 Pulse Ox 92 L 12/20/20 11:35 Intake & Output 12/19/20 12/20/20 12/20/20 18:59 06:59 18:59 Intake Total 200 Balance 200 Weight 56.699 kg 56.699 kg Intake: IV 200 - Exam General: The patient is awake and alert, in no distress Eye: there is normal conjunctiva bilaterally. Neck: The neck is supple, there is no JVD. Cardiovascular: Normal S1-S2, no S3-S4, no murmurs. Respiratory: Lungs clear to auscultation bilaterally Gastrointestinal: Abdomen is soft, nontender Musculoskeletal: There is no pedal edema. Neurological:. Speech is normal. 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 Patient was evaluated and transferred to our hospital for further management of her medical problems noted below. 1. Upper GI bleed: Status post EGD showing evidence of a 3 cm food bezoar versus mass. No active bleeding identified. Biopsies not done secondary to high risk. We will continue Protonix IV 40 mg twice daily. The computed tomography scan of the abdomen and pelvis with oral and IV contrast for further evaluation. 2. Acute blood loss anemia, status post 2 units of PRBC transfusion at outside hospital. Hemoglobin stable. We will check later today and again in the morning. 3. History of multiple malignancies including colon cancer, breast cancer, thyroid cancer, and Hodgkin's lymphoma. Patient had bilateral mastectomy, chemoradiation therapy, she is currently not on any treatment. Following with oncology in [place] 4. Hypokalemia and hypomagnesemia, replaced 5. Chronic conditions: Underlying COPD, hypothyroidism, GERD, history of gastric bypass surgery 6. DVT prophylaxis with SCDs 7. Patient is full code
[2020-12-20] MEDS: HYDROcodone/APAP 5-325MG 1 EACH TAB PO PRN ×3 (13:47→20:23)
[2020-12-20] MEDS: LEVOTHYROXINE 100 MCG TAB PO SCH (13:52)
[2020-12-20] MEDS: SUCRALFATE 1 GM TAB PO SCH ×3 (13:52→20:28)
[2020-12-20] MEDS: LEVOTHYROXINE 75 MCG TAB PO SCH (13:52)
[2020-12-20 14:52] LABS: HCT 24.3 % (34.0-46.0); MCH 31.8 pg (25.0-35.0); MCHC 32.7 g/dL (31.0-37.0); MCV 97.1 fL (80.0-100.0); Mean Platelet Volume 8.2; Platelet Count 218 k/uL (150-450); RBC 2.51 m/uL (3.80-5.40); WBC 12.8 k/uL (3.8-10.6)
[2020-12-20] MEDS: buPROPion XL 300 MG TAB.ER.24H PO SCH (16:11)
[2020-12-20] MEDS: DIVALPROEX 250 MG TABLET.DR PO SCH ×3 (16:11→20:18)
[2020-12-20] MEDS: SODIUM CHLORIDE 0.9% 1,000 ML IV SCH ×2 (17:22→22:30)
[2020-12-20] MEDS ORDERED: BARIUM SULFATE 450 ML ORAL.SUSP BOTTLE PO PRN (19:09)
[2020-12-20] MEDS: SYMBICORT 160-4.5 MCG INHALER INHALATION SCH (19:48)
[2020-12-20 20:09] LABS: MCH 31.9 pg (25.0-35.0); MCHC 33.2 g/dL (31.0-37.0); Mean Platelet Volume 8.1; Platelet Count 185 k/uL (150-450); RBC 2.04 m/uL (3.80-5.40); WBC 8.2 k/uL (3.8-10.6)
[2020-12-20 20:15] LABS: HCT 19.6 % (34.0-46.0); HGB 6.5 gm/dL (11.4-16.0)
[2020-12-20] MEDS: MELATONIN 3 MG TABLET PO SCH (20:18)
[2020-12-20 22:26] LABS: Glucose,Whole Blood 103 mg/dL (75-99)
[2020-12-20] MEDS ORDERED: diphenhydrAMINE 50 MG/ML 1 ML VIAL IVP ONE (23:09)
[2020-12-20] MEDS ORDERED: FAMOTIDINE 20 MG/2 ML VIAL IV ONE (23:09)
[2020-12-20] MEDS ORDERED: methylPREDNISolone SOD SUCCI 125 MG/2 ML VIAL IV ONE (23:09)
[2020-12-21] MEDS: HYDROcodone/APAP 5-325MG 1 EACH TAB PO PRN ×5 (00:13→19:46)
[2020-12-21 05:12] LABS: African American GFR (CKD) >90 (>60 ml/min/1.73 sqM); Blood Urea Nitrogen 26 mg/dL (7-17); Calcium 6.9 mg/dL (8.4-10.2); Carbon Dioxide 12 mmol/L (22-30); Glucose 76 mg/dL (74-99); Magnesium 1.8 mg/dL (1.6-2.3); Non-African American GFR(CKD) >90 (>60 ml/min/1.73 sqM)
[2020-12-21 05:21] LABS: Basophils # (A) 0.1 k/uL (0-0.2); Basophils % (A) 1 %; Eosinophils # (A) 0.1 k/uL (0-0.7); Eosinophils % (A) 2 %; HCT 26.9 % (34.0-46.0); Lymphocytes % (A) 37 %; MCH 31.9 pg (25.0-35.0); MCHC 33.7 g/dL (31.0-37.0); MCV 94.5 fL (80.0-100.0); Mean Platelet Volume 8.4; Monocytes # (A) 0.4 k/uL (0-1.0); Monocytes % (A) 5 %; Neutrophils # (A) 4.5 k/uL (1.3-7.7); Neutrophils % (A) 55 %; Platelet Count 145 k/uL (150-450); RBC 2.84 m/uL (3.80-5.40); RDW 14.1 % (11.5-15.5); WBC 8.1 k/uL (3.8-10.6)
[2020-12-21 05:40] LABS: Anion Gap 5 mmol/L; Chloride 118 mmol/L (98-107); HGB 9.1 gm/dL (11.4-16.0); Potassium 3.3 mmol/L (3.5-5.1); Sodium 135 mmol/L (137-145)
[2020-12-21] MEDS: LEVOTHYROXINE 100 MCG TAB PO SCH (06:08)
[2020-12-21] MEDS: LEVOTHYROXINE 75 MCG TAB PO SCH (06:08)
[2020-12-21] MEDS: ONDANSETRON 4 MG/2 ML VIAL IVP PRN (06:23)
[2020-12-21] MEDS: SUCRALFATE 1 GM TAB PO SCH ×4 (07:08→21:19)
[2020-12-21] MEDS ORDERED: Potassium Replacement Protocol 1 EACH MISC MISCELLANE PRN (07:44)
[2020-12-21] MEDS ORDERED: Magnesium Replacement Protocol 1 EACH MISC MISCELLANE PRN (07:45)
[2020-12-21] MEDS: POTASSIUM CHLORIDE 10 MEQ in WATER FOR INJECTION 1 100ML.BAG IVPB SCH ×4 (07:58→14:08)
[2020-12-21 08:27] LABS: Basophils % (A) 0 %; Eosinophils # (A) 0.1 k/uL (0-0.7); Eosinophils % (A) 1 %; HCT 23.4 % (34.0-46.0); HGB 7.9 gm/dL (11.4-16.0); Lymphocytes # (A) 1.7 k/uL (1.0-4.8); Lymphocytes % (A) 9 %; MCH 31.7 pg (25.0-35.0); MCHC 33.7 g/dL (31.0-37.0); Mean Platelet Volume 8.3; Monocytes # (A) 0.4 k/uL (0-1.0); Monocytes % (A) 2 %; Neutrophils # (A) 15.9 k/uL (1.3-7.7); Neutrophils % (A) 87 %; Platelet Count 166 k/uL (150-450); RBC 2.49 m/uL (3.80-5.40); RDW 13.6 % (11.5-15.5); WBC 18.2 k/uL (3.8-10.6)
[2020-12-21 08:39] LABS: ALT 9 U/L (4-34); AST 16 U/L (14-36); African American GFR (CKD) >90 (>60 ml/min/1.73 sqM); Albumin 1.9 g/dL (3.5-5.0); Alkaline Phosphatase 28 U/L (38-126); Anion Gap 4 mmol/L; Blood Urea Nitrogen 26 mg/dL (7-17); Calcium 7.1 mg/dL (8.4-10.2); Carbon Dioxide 15 mmol/L (22-30); Chloride 117 mmol/L (98-107); Glucose 107 mg/dL (74-99); Non-African American GFR(CKD) >90 (>60 ml/min/1.73 sqM); Potassium 3.8 mmol/L (3.5-5.1); Sodium 136 mmol/L (137-145); Total Bilirubin 0.3 mg/dL (0.2-1.3); Total Protein 3.6 g/dL (6.3-8.2)
[2020-12-21] MEDS: SYMBICORT 160-4.5 MCG INHALER INHALATION SCH ×2 (08:55→19:23)
--- NOTE | 2020-12-21 09:25 | P.DS ---
Providers Date of admission: 12/19/20 23:23 Expected date of discharge: 12/21/20 Attending physician: Mirtha Perez MD Consults: 12/19/20 23:23 Consult Physician Routine Consulting Provider: Jacy Maldonado Consult Reason/Comments: gib Do you want consulting provider notified?: Yes 12/21/20 07:48 Consult Physician Stat Consulting Provider: Star Stephens Consult Reason/Comments: GIB/ICU Do you want consulting provider notified?: Already Contacted Primary care physician: Dante Wang [facility] Course: This is a 50-year-old female with complex past medical history noted below significant for underlying Zimmer syndrome that presented to an outside emergency room at [facility] with bloody diarrhea and presyncope. Patient was evaluated and transferred to our hospital for further management of her medical problems noted below. 1. Upper GI bleed: Status post EGD showing evidence of a 3 cm food bezoar versus mass. Biopsies not done secondary to high risk and friable mass. We will continue Protonix IV 40 mg twice daily. computed tomography scan of the abdomen and pelvis with oral and IV contrast suggested by general surgery for further evaluation but not done secondary to patient instability and iodine contrast ALLERGY 2. Acute blood loss anemia, status post 4 units of PRBC transfusion in the last 36 hours. Patient had a large maroon bloody bowel movement this morning again and hemoglobin dropped to 7.9. We will transfuse 1 more unit for a total of 5 units. 3. History of multiple malignancies including colon cancer, breast cancer, th yroid cancer, and Hodgkin's lymphoma. Patient had bilateral mastectomy, chemoradiation therapy, she is currently not on any treatment. Following with oncology in [place] 4. Hypovolemic shock secondary to ongoing GI bleed. Blood pressure improved with transfusions. Continue IV fluid hydration with normal saline at the 100 the med per hour. 5. Hypokalemia and hypomagnesemia, replaced 6. Chronic conditions: Underlying COPD, hypothyroidism, GERD, history of gastric bypass surgery 7. DVT prophylaxis with SCDs 8. Patient is full code Due to the complexity of her clinical presentation, Gen. surgery suggested that patient needed to be transferred to a tertiary care facility for surgical intervention. I called [facility] excepting line and discussed the patient with the MICU fellow, Dr. Thomas, who accepted the patient to be transferred. Patient would be transferred in a critical condition. Patient Condition at Discharge: Fair Plan - Discharge Summary Discharge Rx Participant: No New Discharge Prescriptions: No Action Ferrous Sulfate [Feosol] 325 mg PO DAILY Budesonide-Formot 160-4.5 Mcg [Symbicort 160-4.5 Mcg Inhaler] 2 puff INHALATION RT-BID Melatonin 3 mg PO HS Exemestane [Aromasin] 25 mg PO DAILY Potassium Chloride ER [K-Dur 20] 20 meq PO DAILY buPROPion XL [Wellbutrin XL] 300 mg PO DAILY Sucralfate [Carafate] 1 gm PO ACHS Omeprazole [PriLOSEC] 40 mg PO BID Alendronate Sodium [Fosamax] 70 mg PO MO ALPRAZolam [Xanax] 2 mg PO QID PRN PRN Reason: Anxiety Dextroamphetamine/Amphetamine [Adderall] 20 mg PO BID PRN PRN Reason: ADHD Divalproex [Depakote] 250 mg PO TID Ibuprofen [Motrin] 600 mg PO Q8HR PRN PRN Reason: Pain Levothyroxine Sodium [Synthroid] 175 mcg PO DAILY Metoprolol Tartrate [Lopressor] 25 mg PO BID Discharge Medication List Ferrous Sulfate [Feosol] 325 mg PO DAILY 05/22/14 [History] Budesonide-Formot 160-4.5 Mcg [Symbicort 160-4.5 Mcg Inhaler] 2 puff INHALATION RT-BID 03/28/15 [History] Exemestane [Aromasin] 25 mg PO DAILY 11/22/15 [History] Melatonin 3 mg PO HS 11/22/15 [History] Potassium Chloride ER [K-Dur 20] 20 meq PO DAILY 02/08/16 [History] Alendronate Sodium [Fosamax] 70 mg PO MO 01/28/19 [History] Omeprazole [PriLOSEC] 40 mg PO BID 01/28/19 [History] Sucralfate [Carafate] 1 gm PO ACHS 01/28/19 [History] buPROPion XL [Wellbutrin XL] 300 mg PO DAILY 01/28/19 [History] ALPRAZolam [Xanax] 2 mg PO QID PRN 12/20/20 [History] Dextroamphetamine/Amphetamine [Adderall] 20 mg PO BID PRN 12/20/20 [History] Divalproex [Depakote] 250 mg PO TID 12/20/20 [History] Ibuprofen [Motrin] 600 mg PO Q8HR PRN 12/20/20 [History] Levothyroxine Sodium [Synthroid] 175 mcg PO DAILY 12/20/20 [History] Metoprolol Tartrate [Lopressor] 25 mg PO BID 12/20/20 [History] Follow up Appointment(s)/Referral(s): Dante Williamson MD [Primary Care Provider] - 1-2 days Patient Instructions/Handouts: Gastrointestinal Bleeding (ED)
[2020-12-21] MEDS: METOPROLOL TARTRATE 25 MG TAB PO SCH ×2 (09:58→19:49)
[2020-12-21] MEDS: MAGNESIUM SULFATE-D5W PMX 1 GM in DEXTROSE/WATER 1 100ML.BAG IVPB SCH ×2 (10:23→11:56)
[2020-12-21] MEDS: buPROPion XL 300 MG TAB.ER.24H PO SCH (10:24)
[2020-12-21] MEDS: DIVALPROEX 250 MG TABLET.DR PO SCH ×3 (10:24→21:19)
[2020-12-21] MEDS: PANTOPRAZOLE 40 MG/10 ML VIAL IV SCH ×2 (10:25→21:19)
--- NOTE | 2020-12-21 10:29 | P.PN ---
Subjective Progress Note Date: 12/21/20 Patient seen and evaluated in ICU with moderate bloody stools. Hgb down from 9.1 to 7.9 in less than 12 hrs. Had discussion with hospitalist regarding complexity of care of multiple primary malignancies at 6. 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 I ordered FFP as she is obtaining her 6th unit of blood. Fibrinogen level ordered. Patient being stabilized for transfer. Care plan goal described with patient and her nurse as well. Critical care time of 25 minutes. Objective - Vital Signs Vital signs: Vital Signs Temp 98.4 F 12/21/20 09:54 Pulse 94 12/21/20 09:54 Resp 13 12/21/20 09:54 BP 82/68 12/21/20 09:54 Pulse Ox 99 12/21/20 09:54 Intake & Output 12/20/20 12/21/20 12/21/20 18:59 06:59 18:59 Intake Total 200 1397 300 Output Total 1300 Balance 200 97 300 Weight 56.699 kg 60.6 kg Intake: IV 200 800 300 Sodium Chloride 0.9% 1, 800 300 000 ml @ 100 mls/hr IV . Q10H [facility] Rx#:[id number] Blood Product 597 0 Rc As-1 Unit 310 [id number] Rc Pheresis 2 As3 Unit 0 [id number] Rc Pheresis As-3 Unit 287 [id number] Output: Urine 1300 Other: # Voids 1 1 # Bowel Movements 1 1 1 - Labs CBC & Chem 7: 12/21/20 08:16 12/21/20 08:16 Labs: Abnormal Lab Results - Last 24 Hours (Table) 12/20/20 12/20/20 12/20/20 Range/Units 14:09 19:38 19:38 WBC 12.8 H (3.8-10.6) k/uL RBC 2.51 L 2.04 L (3.80-5.40) m/uL Hgb 8.0 L D 6.5 L* D (11.4-16.0) gm/dL Hct 24.3 L 19.6 L* (34.0-46.0) % Plt Count (150-450) k/uL Neutrophils # (1.3-7.7) k/uL Sodium (137-145) mmol/L Potassium (3.5-5.1) mmol/L Chloride (98-107) mmol/L Carbon Dioxide (22-30) mmol/L BUN (7-17) mg/dL Glucose (74-99) mg/dL POC Glucose (mg/dL) (75-99) mg/dL Calcium (8.4-10.2) mg/dL Alkaline Phosphatase (38-126) U/L Total Protein (6.3-8.2) g/dL Albumin (3.5-5.0) g/dL Crossmatch See Detail 12/20/20 12/21/20 12/21/20 Range/Units 22:25 04:26 04:26 WBC (3.8-10.6) k/uL RBC 2.84 L (3.80-5.40) m/uL Hgb 9.1 L D (11.4-16.0) gm/dL Hct 26.9 L (34.0-46.0) % Plt Count 145 L (150-450) k/uL Neutrophils # (1.3-7.7) k/uL Sodium 135 L (137-145) mmol/L Potassium 3.3 L (3.5-5.1) mmol/L Chloride 118 H (98-107) mmol/L Carbon Dioxide 12 L (22-30) mmol/L BUN 26 H (7-17) mg/dL Glucose (74-99) mg/dL POC Glucose (mg/dL) 103 H (75-99) mg/dL Calcium 6.9 L (8.4-10.2) mg/dL Alkaline Phosphatase (38-126) U/L Total Protein (6.3-8.2) g/dL Albumin (3.5-5.0) g/dL Crossmatch 12/21/20 12/21/20 Range/Units 08:16 08:16 WBC 18.2 H (3.8-10.6) k/uL RBC 2.49 L (3.80-5.40) m/uL Hgb 7.9 L (11.4-16.0) gm/dL Hct 23.4 L (34.0-46.0) % Plt Count (150-450) k/uL Neutrophils # 15.9 H (1.3-7.7) k/uL Sodium 136 L (137-145) mmol/L Potassium (3.5-5.1) mmol/L Chloride 117 H (98-107) mmol/L Carbon Dioxide 15 L (22-30) mmol/L BUN 26 H (7-17) mg/dL Glucose 107 H (74-99) mg/dL POC Glucose (mg/dL) (75-99) mg/dL Calcium 7.1 L (8.4-10.2) mg/dL Alkaline Phosphatase 28 L (38-126) U/L Total Protein 3.6 L (6.3-8.2) g/dL Albumin 1.9 L (3.5-5.0) g/dL Crossmatch Assessment and Plan (1) Underweight Current Visit: Yes Status: Acute Code(s): R63.6 - UNDERWEIGHT SNOMED Code(s): 716312856 (2) Gastric bypass status for obesity Current Visit: Yes Status: Acute Code(s): Z98.84 - BARIATRIC SURGERY STATUS SNOMED Code(s): 316334899 (3) GI bleed Current Visit: Yes Status: Acute Code(s): K92.2 - GASTROINTESTINAL HEMORRHAGE, UNSPECIFIED SNOMED Code(s): 68296553 (4) Anemia Current Visit: Yes Status: Chronic Priority: High Code(s): D64.9 - ANEMIA, UNSPECIFIED SNOMED Code(s): 988460135 (5) Anemia due to blood loss, acute Current Visit: No Status: Acute Priority: High Code(s): D62 - ACUTE POSTHEMORRHAGIC ANEMIA SNOMED Code(s): 893448741 (6) Dehydration Current Visit: No Status: Acute Code(s): E86.0 - DEHYDRATION SNOMED Code(s): 71423860 (7) Malignant neoplasm of ascending colon Current Visit: No Status: Acute Code(s): C18.2 - MALIGNANT NEOPLASM OF ASCE NDING COLON SNOMED Code(s): 482851628
[2020-12-21 11:15] VITALS: BMI 20.9
--- NOTE | 2020-12-21 12:04 | P.CNPUL ---
History of Present Illness Consult date: 12/21/20 Requesting physician: Sergio Lucero Reason for consult: other (Critical care management) Chief complaint: GI bleed, weakness History of present illness: This is a very pleasant 50-year-old female patient who follows with Dr. Williamson as her primary care provider. She has a medical history of hypertension, hyperlipidemia, CVA/TIA, COPD, seizure disorder, polysubstance abuse, aortic stenosis, multiple abdominal surgeries, Mynor-en-Y procedures, extensive cancer history including colon cancer with chemoradiation and resection in 2016, Hodgkin's lymphoma in remission, thyroid cancer status post thyroidectomy, breast cancer status post bilateral mastectomy. She presented initially to [facility] and subsequently transferred here to our emergency room on 12/19/2020 for GI bleeding. She had been seen by surgical services and EGD was performed on 12/20/2020 where she was found to have acute upper GI bleeding from a gastric tumor. She is continued to have ongoing bleeding and is status post 3 units of packed red blood cells thus far. Current hemoglobin 7.9. The plan is to transfer to [facility] for further investigations and possible surgical interventions. She was admitted to the intensive care unit due to the ongoing bleeding. She is seen today in consultation. She is awake and alert in no acute distress. Maintaining O2 saturations in the high 90s on room air. She's been afebrile. Mean arterial pressures in the 70s. Not requiring any pressors at this point. Receiving 0.9 normal saline at 100 ML's per hour. On IV Protonix, Carafate. White count 18.2. Hemoglobin 7.9. Platelets 166. Sodium 136. Potassium 3.8. Bicarb 15. Creatinine 0.67. Review of Systems REVIEW OF SYSTEMS: CONSTITUTIONAL: Positive for generalized weakness, fatigue. Denies any recent significant weight loss or weight gain. EYES: Denies change in vision. EARS, NOSE, MOUTH, THROAT: Denies headaches, denies sore throat. CARDIOVASCULAR: Denies chest pain, palpitations or syncopal episodes. RESPIRATORY: Denies shortness of breath, cough, congestion or hemoptysis. GASTROINTESTINAL: Positive for abdominal discomfort, GI bleeding GENITOURINARY: Denies hematuria, denies infections. MUSKULOSKELETAL: Denies pain, denies swelling. INTEGUMENTARY: Denies rash, denies eczema. NEUROLOGICAL: Denies recent memory loss, no recent seizure activity. PSYCHIATRIC: Denies anxiety, denies depression. HEMATOLOGIC/LYMPHATIC: Denies anemia, denies enlarged lymph nodes. 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/leg weakness on some days, aortic stenosis, LAST SEIZURE (2009), BACK PAIN, ANEMIA, ZIMMER SYNDROME FOUND ON GENETIC TESTING, WATERY STOOLS SINCE BOWEL RESECTION JANUARY 2015, chronic bron chitis, diabetes but lost wt and does not take RX, DJD, psoriasis, hypothyroid History of Any Multi-Drug Resistant Organisms: None Reported Past Surgical History: Appendectomy, Back Surgery, Bariatric Surgery, Bowel Resection, Breast Surgery, Cholecystectomy, Hysterectomy, Orthopedic Surgery, Tonsillectomy, Tubal Ligation Additional Past Surgical History / Comment(s): 12/20/20 EGD, mastectomy (bilateral) - lymph nodes out on left side,thyroidectomy,back surgery X 5,Gastric Bypass Surgery (Mynor-en-Y) 2005 at [facility] by Dr. Vargas, bowel resection in January 2015 due to perf with colonoscopy, incisional HERNIA (), VENTRAL HERNIA (07/2015), colonoscopy 09/24/15, R ankle surgery x 2, L breast bx, tummy tuck, thyroid bx, knee arthroscopy (unsure which), bx R clavicle. Past Anesthesia/Blood Transfusion Reactions: No Reported Reaction Additional Past Anesthesia/Blood Transfusion Reaction / Comment(s): Pt has had blood transfusions without reaction. Smoking Status: Former smoker - Past Family History Mother Family Medical History: Cancer, GI Bleed Additional Family Medical History / Comment(s): BILE DUCT CANCER- of at age 59 yrs. Father Family Medical History: Coronary Artery Disease (CAD), Hypertension Additional Family Medical History / Comment(s): CABG 2015 Sister(s) Family Medical History: Cancer Additional Family Medical History / Comment(s): BREAST CANCER Medications and Allergies Home Medications Medication Instructions Recorded Confirmed Type Ferrous Sulfate [Feosol] 325 mg PO DAILY 05/22/14 12/20/20 History Budesonide-Formot 160-4.5 Mcg 2 puff INHALATION RT-BID 03/28/15 12/20/20 History [Symbicort 160-4.5 Mcg Inhaler] Exemestane [Aromasin] 25 mg PO DAILY 11/22/15 12/20/20 History Melatonin 3 mg PO HS 11/22/15 12/20/20 History Potassium Chloride ER [K-Dur 20] 20 meq PO DAILY 02/08/16 12/20/20 History Alendronate Sodium [Fosamax] 70 mg PO MO 01/28/19 12/20/20 History Omeprazole [PriLOSEC] 40 mg PO BID 01/28/19 12/20/20 History Sucralfate [Carafate] 1 gm PO ACHS 01/28/19 12/20/20 History buPROPion XL [Wellbutrin XL] 300 mg PO DAILY 01/28/19 12/20/20 History ALPRAZolam [Xanax] 2 mg PO QID PRN 12/20/20 12/20/20 History Dextroamphetamine/Amphetamine 20 mg PO BID PRN 12/20/20 12/20/20 History [Adderall] Divalproex [Depakote] 250 mg PO TID 12/20/20 12/20/20 History Ibuprofen [Motrin] 600 mg PO Q8HR PRN 12/20/20 12/20/20 History Levothyroxine Sodium [Synthroid] 175 mcg PO DAILY 12/20/20 12/20/20 History Metoprolol Tartrate [Lopressor] 25 mg PO BID 12/20/20 12/20/20 History Allergies Allergy/AdvReac Type Severity Reaction Status Date / Time Iodinated Contrast Media Allergy Unknown Rash/Hives Verified 12/20/20 06:56 [Iodinated Contrast Media - IV Dye] Penicillins Allergy Rash/Hives/ Verified 12/20/20 06:56 VOMITING tetracycline Allergy Rash/Hives/ Verified 12/20/20 06:56 VOMITING duloxetine HCl AdvReac Nausea & Verified 12/20/20 06:56 [From Cymbalta] Vomiting Physical Exam Vitals: Vital Signs Temp Pulse Pulse Resp BP BP Pulse Ox 12/21/20 10:30 92 16 90/80 99 12/21/20 10:00 88 13 89/62 99 12/21/20 09:54 98.4 F 94 13 82/68 99 12/21/20 09:30 90 13 93/52 12/21/20 09:24 98.3 F 88 11 L 88/58 99 12/21/20 09:14 97.5 F L 88 13 79/63 12/21/20 09:00 101 H 20 77/49 98 12/21/20 08:30 90 17 83/65 99 12/21/20 08:00 98.0 F 89 86 13 92/64 99 12/21/20 07:30 84 17 82/57 97 12/21/20 07:00 76 12 101/67 97 12/21/20 06:30 78 13 107/69 98 12/21/20 06:00 71 14 98/64 98 12/21/20 05:30 70 13 87/57 98 12/21/20 05:00 68 18 88/58 98 12/21/20 04:30 69 17 90/58 96 12/21/20 04:00 97.9 F 66 86 15 85/56 99 12/21/20 03:36 98.1 F 68 16 85/56 98 12/21/20 03:30 71 14 80/58 99 12/21/20 03:00 64 14 87/62 99 12/21/20 02:30 64 12 89/67 100 12/21/20 02:03 98.3 F 71 14 89/67 98 12/21/20 02:00 69 10 L 83/54 98 12/21/20 01:33 98.4 F 70 14 90/61 98 12/21/20 01:30 73 12 98/71 97 12/21/20 01:23 98.4 F 76 14 98/71 97 12/21/20 01:03 98.4 F 73 14 82/59 12/21/20 01:00 70 88/57 98 12/21/20 00:30 72 13 90/56 99 12/21/20 00:15 79 17 90/56 98 12/21/20 00:00 98.2 F 78 86 15 81/54 99 12/20/20 23:45 77 14 92/55 100 12/20/20 23:34 98.2 F 71 14 92/55 12/20/20 23:30 72 86/54 100 12/20/20 23:15 84 18 84/56 98 12/20/20 23:04 98.2 F 76 14 86/54 12/20/20 23:00 73 15 96 12/20/20 22:54 98.6 F 73 14 93/54 98 12/20/20 22:45 74 20 99 12/20/20 22:30 80 14 93/54 100 12/20/20 20:00 19 12/20/20 12:17 98.0 F 86 19 92/68 98 Intake and Output 12/20/20 12/21/20 12/21/20 22:59 06:59 14:59 Intake Total 0 1397 400 Output Total 1300 Balance 0 97 400 Intake: IV 800 400 Sodium Chloride 0.9% 1, 800 400 000 ml @ 100 mls/hr IV . Q10H [facility] Rx#:[id number] Blood Product 0 597 0 Rc As-1 Unit 310 [id number] Rc Pheresis 2 As3 Unit 0 [id number] Rc Pheresis As-3 Unit 0 287 [id number] Output: Urine 1300 Other: # Voids 1 # Bowel Movements 1 1 Weight 60.6 kg 60.6 kg GENERAL EXAM: Alert, pale, pleasant 50-year-old female, on room air comfortable in no apparent distress. HEAD: Normocephalic. EYES: Normal reaction of pupils, equal size. NOSE: Clear with pink turbinates. THROAT: No erythema or exudates. NECK: No masses, no JVD. CHEST: No chest wall deformity. Status post bilateral mastectomy LUNGS: Equal air entry with no crackles, wheeze, rhonchi or dullness. CVS: S1 and S2 normal with no audible murmur, regular rhythm. ABDOMEN: Abdominal scarring. No hepatosplenomegaly, normal bowel sounds, no guarding or rigidity. SPINE: No scoliosis or deformity SKIN: No rashes CENTRAL NERVOUS SYSTEM: No focal deficits, tone is normal in all 4 extremities. EXTREMITIES: There is no peripheral edema. No clubbing, no cyanosis. Peripheral pulses are intact. Results - Laboratory Findings CBC and BMP: 12/21/20 08:16 12/21/20 08:16 Abnormal lab findings: Abnormal Labs 12/20/20 12/20/20 12/20/20 06:02 06:02 06:02 WBC RBC 3.03 L Hgb 9.9 L Hct 28.0 L Plt Count Neutrophils # Sodium 134 L Potassium Chloride 113 H Carbon Dioxide 17 L BUN 33 H Glucose POC Glucose (mg/dL) Plasma Lactic Acid Herber <0.5 L Calcium 7.6 L Alkaline Phosphatase Total Protein Albumin Crossmatch 12/20/20 12/20/20 12/20/20 14:09 19:38 19:38 WBC 12.8 H RBC 2.51 L 2.04 L Hgb 8.0 L D 6.5 L* D Hct 24.3 L 19.6 L* Plt Count Neutrophils # Sodium Potassium Chloride Carbon Dioxide BUN Glucose POC Glucose (mg/dL) Plasma Lactic Acid Herber Calcium Alkaline Phosphatase Total Protein Albumin Crossmatch See Detail 12/20/20 12/21/20 12/21/20 22:25 04:26 04:26 WBC RBC 2.84 L Hgb 9.1 L D Hct 26.9 L Plt Count 145 L Neutrophils # Sodium 135 L Potassium 3.3 L Chloride 118 H Carbon Dioxide 12 L BUN 26 H Glucose POC Glucose (mg/dL) 103 H Plasma Lactic Acid Herber Calcium 6.9 L Alkaline Phosphatase Total Protein Albumin Crossmatch 12/21/20 12/21/20 08:16 08:16 WBC 18.2 H RBC 2.49 L Hgb 7.9 L Hct 23.4 L Plt Count Neutrophils # 15.9 H Sodium 136 L Potassium Chloride 117 H Carbon Dioxide 15 L BUN 26 H Glucose 107 H POC Glucose (mg/dL) Plasma Lactic Acid Herber Calcium 7.1 L Alkaline Phosphatase 28 L Total Protein 3.6 L Albumin 1.9 L Crossmatch Assessment and Plan Assessment: 1 Acute gastrointestinal bleeding with acute blood loss anemia secondary to acute epigastric bleeding from a gastric tumor. EGD 12/20/2020. 2 History of gastrojejunal ulcer 3 History of multiple primary GI malignancies 4 History of colon cancer with previous resection in 2014 5 History of Mynor-en-Y procedure 6 Zimmer syndrome 7 History of Hodgkin's lymphoma 8 History of thyroid cancer status post thyroidectomy 9 History of breast cancer status post bilateral mastectomy 10 History of cervical cancer 11 History of CVA/TIA 12 History of hyperlipidemia 13 History of hypertension 14 History of seizure disorder Plan: The patient was seen and evaluated by Dr. Stephens Continue with blood transfusions Continue to monitor hemoglobin closely Continue Protonix, Carafate, IV resuscitation Plan is for transfer to [facility] today In the interim, continue to monitor her here closely in the ICU We will continue to follow and make further recommendations based on her clinical status I, the cosigning physician, performed a history & physical examination of the patient. Lungs sounds are clear. Maintaining good O2 saturations in the 90s on room air. I discussed the assessment and plan of care with my nurse practitioner, Lesly Munguia. I attest to the above consultation as dictated by her. Time with Patient: Greater than 30
[2020-12-21] MEDS: SODIUM CHLORIDE 0.9% 1,000 ML IV SCH (14:09)
[2020-12-21 19:02] LABS: HCT 25.9 % (34.0-46.0); HGB 8.6 gm/dL (11.4-16.0); MCH 31.2 pg (25.0-35.0); MCHC 33.3 g/dL (31.0-37.0); MCV 93.9 fL (80.0-100.0); Mean Platelet Volume 8.5; Platelet Count 117 k/uL (150-450); RBC 2.75 m/uL (3.80-5.40); RDW 14.5 % (11.5-15.5); WBC 9.4 k/uL (3.8-10.6)
[2020-12-21 20:04] VITALS: TEMP 98.1
[2020-12-21] MEDS: MELATONIN 3 MG TABLET PO SCH (21:19)
[2020-12-21 22:01] VITALS: BP 96/69; PULSE 101; RESP 54
--- NOTE | 2020-12-24 13:01 | CDI ---
Documentation Clarification Form Date: 12/24/2020 12:57:00 PM From: Anayeli Ying CCS Admit Date: 12/19/2020 11:23:00 PM Patient Name: Jessi Camarillo Visit Number: [id number] Discharge Date: 12/21/2020 10:19:00 PM ATTENTION: The Clinical Documentation Specialists (CDI) and [facility] Coding Staff appreciate your assistance in clarifying documentation. Please respond to the clarification below the line at the bottom and electronically sign. The CDI & [facility] Coding staff will review the response and follow-up if needed. Please note: Queries are made part of the Legal Health Record. If you have any questions, please contact the author of this message via ITS. Dr. Sergio Lucero Malnutrition has been documented in Progress Note 12/21. History/Risk Factors: GI bleed, GI tumor, Hx colon CA, Hx CVA, COPD, Dehydration, HTN Clinical Indicators: Underweight Labs: Albumin 1.9, Total Protein 3.6 Current BMI: 20.9 Insufficient energy intake: Less than 25% of needs Decreased hand desk top publisher strength: Treatment: Enlive BID, If unable to advance diet recommend PN, Monitor PO Dietary Consult: 12/21 In your professional opinion, can you please clarify if these findings signify one of the following conditions? Mild Protein-Calorie Malnutrition ___ Moderate Protein-Calorie Malnutrition___ Severe Protein-Calorie Malnutrition ____ Malnutrition, unspecified___ Malnutrition following GI surgery___ Other condition, please specify Unable to determine Updated discharge summary that patient had moderate to severe malnutrition MTDD
== END 2020-12-21 22:19 | disposition short-term general hospital (02) | DRG 374 ==
LOC: EC 22:43 → 5NMEDONC 23:23 → 2SICU 12-20 22:28
PROVIDERS: ADMIT Internal Medicine; ATTEND Internal Medicine
PROC: 30233N1 Transfusion of Nonautologous Red Blood Cells into Peripheral Vein, Percutaneous Approach (ICD-10-PCS; 2020-12-20)
PROC: 0DJ08ZZ Inspection of Upper Intestinal Tract, Via Natural or Artificial Opening Endoscopic (ICD-10-PCS; principal; 2020-12-20 07:45)
PROC: 30233K1 Transfusion of Nonautologous Frozen Plasma into Peripheral Vein, Percutaneous Approach (ICD-10-PCS; 2020-12-21)
DX: D49.0 Neoplasm of unspecified behavior of digestive system (principal); R57.1 Hypovolemic shock; E43 Unspecified severe protein-calorie malnutrition; E87.2 Acidosis; K92.2 Gastrointestinal hemorrhage, unspecified; I69.351 Hemiplegia and hemiparesis following cerebral infarction affecting right dominant side; D62 Acute posthemorrhagic anemia; T18.2XXA Foreign body in stomach, initial encounter; E11.9 Type 2 diabetes mellitus without complications; J44.9 Chronic obstructive pulmonary disease, unspecified; G40.909 Epilepsy, unspecified, not intractable, without status epilepticus; K21.9 Gastro-esophageal reflux disease without esophagitis; E78.5 Hyperlipidemia, unspecified; I10 Essential (primary) hypertension; L40.9 Psoriasis, unspecified; K22.70 Barrett's esophagus without dysplasia; M19.90 Unspecified osteoarthritis, unspecified site; E89.0 Postprocedural hypothyroidism; F32.9 Major depressive disorder, single episode, unspecified; F41.9 Anxiety disorder, unspecified; E83.42 Hypomagnesemia; E87.6 Hypokalemia; Z87.11 Personal history of peptic ulcer disease; Z68.20 Body mass index [BMI] 20.0-20.9, adult; E86.0 Dehydration; I35.0 Nonrheumatic aortic (valve) stenosis; Z71.3 Dietary counseling and surveillance; Z15.09 Genetic susceptibility to other malignant neoplasm; Z79.51 Long term (current) use of inhaled steroids; Z79.811 Long term (current) use of aromatase inhibitors; Z79.83 Long term (current) use of bisphosphonates; Z79.890 Hormone replacement therapy; Z85.850 Personal history of malignant neoplasm of thyroid; Z79.899 Other long term (current) drug therapy; Z85.71 Personal history of Hodgkin lymphoma; Z85.3 Personal history of malignant neoplasm of breast; Z85.038 Personal history of other malignant neoplasm of large intestine; Z85.41 Personal history of malignant neoplasm of cervix uteri; Z90.710 Acquired absence of both cervix and uterus; Z98.84 Bariatric surgery status; Z90.49 Acquired absence of other specified parts of digestive tract; Z90.13 Acquired absence of bilateral breasts and nipples; Z98.890 Other specified postprocedural states; Z87.891 Personal history of nicotine dependence; Z92.3 Personal history of irradiation; Z92.21 Personal history of antineoplastic chemotherapy; Z88.0 Allergy status to penicillin; Z88.8 Allergy status to other drugs, medicaments and biological substances; Z88.1 Allergy status to other antibiotic agents; Z91.041 Radiographic dye allergy status; Z80.3 Family history of malignant neoplasm of breast; Z80.0 Family history of malignant neoplasm of digestive organs; Z82.49 Family history of ischemic heart disease and other diseases of the circulatory system
CPT/HCPCS: 43235; 80048; 80053; 82330; 83605; 83735; 84100; 85025; 85027; 85384; 86850; 86900; 86901; 86920; 94640; 96360; 99285

== ENCOUNTER → 2022-03-06 | Day surgery (SDC) | payer MEDICARE, OTHER ==
[2022-03-05 10:02] VITALS: BMI 20.3
[~2022-03-06] MED LIST changes: -DEXAMETHASONE SOD PHOSPHATE 10 MG/ML 1 ML VIAL IV ONE; +LACTATED RINGERS 1,000 ML IV ONE; -LACTATED RINGERS 1,000 ML IV SCH; -LIDOCAINE 1% 20 ML VIAL (10MG/ML) FOR IV START INTRADERMA PRN; +LIDOCAINE 2% INJ 20 MG/ML (2 ML VIAL) ONE; -ONDANSETRON 4 MG/2 ML VIAL IVP ONE; +PROPOFOL 10 MG/ML 20 ML VIAL IV ONE; -Pre Op ABX Message 1 EACH MISC MISCELLANE ONE
--- NOTE | 2022-03-06 08:38 | P.GSHP ---
History of Present Illness H&P Date: 03/06/22 CHIEF COMPLAINT: GERD HISTORY OF PRESENT ILLNESS: The patient is a 51-year-old female who presents reports gastroesophageal reflux disease. Upper endoscopy was offered for further evaluation and management. PAST MEDICAL HISTORY: Please see list. PAST SURGICAL HISTORY: Please see list. MEDICATIONS: Please see list. ALLERGIES: Please see list. SOCIAL HISTORY: No illicit drug use FAMILY HISTORY: No reports of Crohn disease or ulcerative colitis. REVIEW OF ORGAN SYSTEMS: CONSTITUTIONAL: No reports of fevers or chills. GI: Denies any blood in stools or constipation. PHYSICAL EXAM: VITAL SIGNS: Stable GENERAL: Well-developed and pleasant in no acute distress. HEENT: No scleral icterus. Extraocular movements grossly intact. Moist buccal mucosa. NECK: Supple without lymphadenopathy. CHEST: Unlabored respirations. Equal bilateral excursions. CARDIOVASCULAR: Regular rate and rhythm. Distal 2+ pulses. ABDOMEN: Soft, nondistended. MUSCULOSKELETAL: No clubbing, cyanosis, or edema. ASSESSMENT: 1. Gastroesophageal reflux disease PLAN: 1. Recommend proceeding with an upper endoscopy Past Medical History Past Medical History: Cancer, COPD, CVA/TIA, Diabetes Mellitus, GERD/Reflux, Hyperlipidemia, Hypertension, Musculoskeletal Disorder, Seizure Disorder, Skin Disorder, Thyroid Disorder Additional Past Medical History / Comment(s): THICKENING OF THE ESOPHAGUS. 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 hx sepsis History of Any Multi-Drug Resistant Organisms: MRSA Date of last positivie culture/infection: 1989 MDRO Source:: rt knee Past Surgical History: Appendectomy, Back Surgery, Bariatric Surgery, Bowel Resection, Breast Surgery, Cholecystectomy, Hernia Repair, Hysterectomy, Joint Replacement, Orthopedic Surgery, Tonsillectomy, Tubal Ligation Additional Past Surgical History / Comment(s): josy mastectomy /lymph nodes out on left side,thyroidectomy,back surgery X 8,Gastric Bypass Surgery (Mynor-en-Y) 2004 at [facility], bowel resection due to perforation, incisional HERNIA , VENTRAL HERNIA , colonoscopy, R ankle surgery x 2, L breast bx, tummy tuck, thyroid bx, knee arthroscopy (unsure which), biopsy R clavicle. rt hip replaceme nt x 3 Past Anesthesia/Blood Transfusion Reactions: No Reported Reaction Additional Past Anesthesia/Blood Transfusion Reaction / Comment(s): blood tra nsfusions with no problems Smoking Status: Former smoker - Past Family History Mother Family Medical History: Cancer Additional Family Medical History / Comment(s): breast Father Family Medical History: Coronary Artery Disease (CAD), Hypertension Additional Family Medical History / Comment(s): CABG 2015 Sister(s) Family Medical History: Cancer Additional Family Medical History / Comment(s): BREAST CANCER Medications and Allergies Home Medications Medication Instructions Recorded Confirmed Type Budesonide-Formot 160-4.5 Mcg 2 puff INHALATION RT-BID 03/28/15 03/05/22 History [Symbicort 160-4.5 Mcg Inhaler] Exemestane [Aromasin] 25 mg PO DAILY 11/22/15 03/05/22 History Melatonin 3 mg PO HS PRN 11/22/15 03/05/22 History Potassium Chloride ER [K-Dur 20] 20 meq PO DAILY 02/08/16 03/05/22 History Alendronate Sodium [Fosamax] 70 mg PO MO 01/28/19 03/05/22 History Sucralfate [Carafate] 1 gm PO ACHS 01/28/19 03/05/22 History buPROPion XL [Wellbutrin XL] 300 mg PO DAILY 01/28/19 03/05/22 History ALPRAZolam [Xanax] 2 mg PO QID PRN 12/20/20 03/05/22 History Dextroamphetamine/Amphetamine 20 mg PO BID PRN 12/20/20 03/05/22 History [Adderall] Divalproex [Depakote] 250 mg PO TID 12/20/20 03/05/22 History Levothyroxine Sodium [Synthroid] 175 mcg PO DAILY 12/20/20 03/05/22 History Metoprolol Tartrate [Lopressor] 25 mg PO BID 12/20/20 03/05/22 History Ergocalciferol [Vitamin D2 (1250 1,250 mcg PO TU 03/05/22 03/05/22 History Mcg = 72159 Iu)] Pantoprazole [Protonix] 40 mg PO BID 03/05/22 03/05/22 History Allergies Allergy/AdvReac Type Severity Reaction Status Date / Time ibuprofen Allergy Severe GI bleed Verified 03/05/22 09:49 Iodinated Contrast Media Allergy Unknown Rash/Hives Verified 03/05/22 09:48 [Iodinated Contrast Media - IV Dye] Penicillins Allergy Rash/Hives/ Verified 03/05/22 09:48 VOMITING tetracycline Allergy Rash/Hives/ Verified 03/05/22 09:48 VOMITING duloxetine HCl AdvReac Nausea & Verified 03/05/22 09:48 [From Cymbalta] Vomiting
[2022-03-06 09:21] VITALS: TEMP 97
[2022-03-06 09:23] LABS: Glucose,Whole Blood 92 mg/dL (75-99)
--- NOTE | 2022-03-06 10:05 | P.PCN ---
Date of Procedure: 03/06/22 Description of Procedure: PREOPERATIVE DIAGNOSIS: Dysphagia. Nausea with vomiting. History of gastrojejunal stricture POSTOPERATIVE DIAGNOSIS: Dysphagia. Nausea with vomiting. Gastrojejunal stricture without chronic ulcer without perforation OPERATION: Esophagogastrojejunoscopy with balloon dilatation from 15 to 20 mm. SURGEON: Jacy Maldonado MD ANESTHESIA: MAC. INDICATIONS: The patient is a 51-year-old female who presents with a history of dysphagia, including new-onset nausea and vomiting. Benefits and risks of the procedure were described. Informed consent was obtained. DESCRIPTION: The patient was brought into the endoscopy suite and laid in the left lateral decubitus position. After a timeout was confirmed, the procedure was initiated. An Olympus gastroscope was passed along the posterior oropharynx down to the distal esophagus where the squamocolumnar junction was unremarkable. The gastric pouch was entered. A gastrojejunal stricture of 15 mm was found as the adult gastroscope was 9.5 mm in size. A [employer] balloon dilator was placed through the scope. Final insufflation up to 20 mm was performed with a total of 2 minutes. The scope was advanced up to 60 cm from the incisors into the Mynor limb. The mucosa of the gastrojejunal anastomosis was intact. No chronic gastrojejunal marginal ulcer was encountered. No full-thickness injury was encountered. The GI tract was desufflated. The patient tolerated the procedure well. FINDINGS: Squamocolumnar junction at 37 cm. Stricture of approximately 15 mm encountered at gastrojejunal anastomosis No chronic gastrojejunal ulceration encountered. Successful balloon dilatation to 20 mm. Gastric pouch 3 cm RECOMMENDATIONS: Upper endoscopy as needed. Plan - Discharge Summary New Discharge Prescriptions: New Pantoprazole [Protonix] 40 mg PO DAILY #30 tab Continue Budesonide-Formot 160-4.5 Mcg [Symbicort 160-4.5 Mcg Inhaler] 2 puff INHALATION RT-BID Exemestane [Aromasin] 25 mg PO DAILY Potassium Chloride ER [K-Dur 20] 20 meq PO DAILY buPROPion XL [Wellbutrin XL] 300 mg PO DAILY Sucralfate [Carafate] 1 gm PO ACHS Alendronate Sodium [Fosamax] 70 mg PO MO ALPRAZolam [Xanax] 2 mg PO QID PRN PRN Reason: Anxiety Dextroamphetamine/Amphetamine [Adderall] 20 mg PO BID PRN PRN Reason: ADHD Divalproex [Depakote] 250 mg PO TID Levothyroxine Sodium [Synthroid] 175 mcg PO DAILY Metoprolol Tartrate [Lopressor] 25 mg PO BID Ergocalciferol [Vitamin D2 (1250 Mcg = 15823 Iu)] 1,250 mcg PO TU Discontinued Pantoprazole [Protonix] 40 mg PO BID Discharge Medication List Budesonide-Formot 160-4.5 Mcg [Symbicort 160-4.5 Mcg Inhaler] 2 puff INHALATION RT-BID 03/28/15 [History] Exemestane [Aromasin] 25 mg PO DAILY 11/22/15 [History] Potassium Chloride ER [K-Dur 20] 20 meq PO DAILY 02/08/16 [History] Alendronate Sodium [Fosamax] 70 mg PO MO 01/28/19 [History] Sucralfate [Carafate] 1 gm PO ACHS 01/28/19 [History] buPROPion XL [Wellbutrin XL] 300 mg PO DAILY 01/28/19 [History] ALPRAZolam [Xanax] 2 mg PO QID PRN 12/20/20 [History] Dextroamphetamine/Amphetamine [Adderall] 20 mg PO BID PRN 12/20/20 [History] Divalproex [Depakote] 250 mg PO TID 12/20/20 [History] Levothyroxine Sodium [Synthroid] 175 mcg PO DAILY 12/20/20 [History] Metoprolol Tartrate [Lopressor] 25 mg PO BID 12/20/20 [History] Ergocalciferol [Vitamin D2 (1250 Mcg = 60341 Iu)] 1,250 mcg PO TU 03/05/22 [History] Pantoprazole [Protonix] 40 mg PO DAILY #30 tab 03/06/22 [Rx] Follow up Appointment(s)/Referral(s): Jacy Maldonado MD [STAFF PHYSICIAN] - 03/25/22 Patient Instructions/Handouts: Esophageal Dilation (DC) Activity/Diet/Wound Care/Special Instructions: Diet as tolerated Discharge Disposition: HOME SELF-CARE
[2022-03-06 10:13] VITALS: BP 96/54; PULSE 80; RESP 20
== END | disposition home or self-care (01) ==
LOC: ORWHC2ENDO 08:23
PROVIDERS: ATTEND Surgery Plastic and Reconstructive Surgery
DX: K95.89 Other complications of other bariatric procedure (principal); R13.10 Dysphagia, unspecified; K21.9 Gastro-esophageal reflux disease without esophagitis; J44.9 Chronic obstructive pulmonary disease, unspecified; E11.9 Type 2 diabetes mellitus without complications; E78.5 Hyperlipidemia, unspecified; I35.0 Nonrheumatic aortic (valve) stenosis; I10 Essential (primary) hypertension; G40.909 Epilepsy, unspecified, not intractable, without status epilepticus; E07.9 Disorder of thyroid, unspecified; Z85.71 Personal history of Hodgkin lymphoma; Z85.3 Personal history of malignant neoplasm of breast; Z85.038 Personal history of other malignant neoplasm of large intestine; Z85.41 Personal history of malignant neoplasm of cervix uteri; I69.351 Hemiplegia and hemiparesis following cerebral infarction affecting right dominant side; D64.9 Anemia, unspecified; Z97.3 Presence of spectacles and contact lenses; Z86.14 Personal history of Methicillin resistant Staphylococcus aureus infection; Z86.19 Personal history of other infectious and parasitic diseases; Z90.49 Acquired absence of other specified parts of digestive tract; Z90.710 Acquired absence of both cervix and uterus; Z96.641 Presence of right artificial hip joint; Z98.890 Other specified postprocedural states; Z98.51 Tubal ligation status; Z90.13 Acquired absence of bilateral breasts and nipples; Z87.891 Personal history of nicotine dependence; Z80.3 Family history of malignant neoplasm of breast; Z82.49 Family history of ischemic heart disease and other diseases of the circulatory system; Z79.811 Long term (current) use of aromatase inhibitors; Z79.890 Hormone replacement therapy; Z79.51 Long term (current) use of inhaled steroids; Z79.899 Other long term (current) drug therapy; Z88.0 Allergy status to penicillin; Z88.8 Allergy status to other drugs, medicaments and biological substances; Z88.6 Allergy status to analgesic agent; Z88.1 Allergy status to other antibiotic agents; Z91.041 Radiographic dye allergy status
CPT/HCPCS: 43245; J2704; J2001; C1726; 43249

== ENCOUNTER 2022-04-07 07:01 | Day surgery (SDC) | payer MEDICARE, OTHER ==
[~2022-04-07 07:01] MED LIST changes: +DEXAMETHASONE SOD PHOSPHATE 4 MG/ML 1 ML VIAL IV ONE; +HEPARIN SODIUM,PORCINE/PF 5,000 UNIT/0.5 ML SYRINGE SQ PRN; +HYDROmorphone 0.5 MG/0.5 ML SYRINGE IVP PRN; -LACTATED RINGERS 1,000 ML IV ONE; +LACTATED RINGERS 1,000 ML IV SCH; +LIDOCAINE 1% (10MG/ML) FOR IV START INTRADERMA PRN; -LIDOCAINE 2% INJ 20 MG/ML (2 ML VIAL) ONE; +ONDANSETRON 4 MG/2 ML VIAL IVP ONE; -PROPOFOL 10 MG/ML 20 ML VIAL IV ONE; +Pre Op ABX Message 1 EACH MISC MISCELLANE ONE
[2022-04-07] MEDS ORDERED: SCOPOLAMINE 1 MG/72 HR PATCH TRANSDERM PRN (08:14)
[2022-04-07 08:15] LABS: Basophils % (A) 1 %; Eosinophils # (A) 0.3 k/uL (0-0.7); Eosinophils % (A) 4 %; HCT 34.4 % (34.0-46.0); HGB 11.5 gm/dL (11.4-16.0); Lymphocytes # (A) 1.9 k/uL (1.0-4.8); Lymphocytes % (A) 32 %; MCH 33.4 pg (25.0-35.0); MCHC 33.5 g/dL (31.0-37.0); MCV 99.6 fL (80.0-100.0); Mean Platelet Volume 8.3; Monocytes # (A) 0.5 k/uL (0-1.0); Monocytes % (A) 8 %; Neutrophils % (A) 52 %; Platelet Count 240 k/uL (150-450); RBC 3.46 m/uL (3.80-5.40); WBC 5.9 k/uL (3.8-10.6)
--- NOTE | 2022-04-07 08:15 | P.GSHP ---
History of Present Illness H&P Date: 04/07/22 CHIEF COMPLAINT: History of intra-abdominal adhesions HISTORY OF PRESENT ILLNESS: The patient is a [id number] female who presents with history of intra-abdominal adhesions from multiple prior surgeries including increasing abdominal pain. She now presents for diagnostic laparoscopy including lysis of adhesions. PAST MEDICAL HISTORY: Please see list. PAST SURGICAL HISTORY: Please see list. MEDICATIONS: Please see list. ALLERGIES: Please see list. SOCIAL HISTORY: No illicit drug use FAMILY HISTORY: No reports of Crohn disease or ulcerative colitis. REVIEW OF ORGAN SYSTEMS: CONSTITUTIONAL: No reports of fevers or chills. GI: Denies any blood in stools or constipation. CARDIO: History of myocardial infarction, arrhythmia, cardiomyopathy PHYSICAL EXAM: VITAL SIGNS: Stable GENERAL: Well-developed pleasant and in no acute distress. HEENT: No scleral icterus. Extraocular movements grossly intact. Moist buccal mucosa. NECK: Supple without lymphadenopathy. CHEST: Unlabored respirations. Equal bilateral excursions. CARDIOVASCULAR: Regular rate and rhythm. Distal 2+ pulses. ABDOMEN: Soft, diffuse abdominal tenderness. No peritonitis. MUSCULOSKELETAL: No clubbing, cyanosis, or edema. ASSESSMENT: 1. Diffuse abdominal pain. 2. History of multiple abdominal surgeries. 3. Intra-abdominal adhesions. PLAN: 1. Robotic lysis of adhesions were described in detail including risk of injury to the intestine, need for further surgery, and open technique. 2. DVT prophylaxis. 3. Antibiotic prophylaxis. 4. She is elevated risk for complications due to pre-existing heart disease Past Medical History Past Medical History: Cancer, COPD, CVA/TIA, Diabetes Mellitus, GERD/Reflux, Hyperlipidemia, Hypertension, Musculoskeletal Disorder, Seizure Disorder, Skin Disorder, Thyroid Disorder Additional Past Medical History / Comment(s): THICKENING OF THE ESOPHAGUS. 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 hx sepsis History of Any Multi-Drug Resistant Organisms: MRSA Date of last positivie culture/infection: 1989 MDRO Source:: rt knee Past Surgical History: Appendectomy, Back Surgery, Bariatric Surgery, Bowel Resection, Breast Surgery, Cholecystectomy, Hernia Repair, Hysterectomy, Joint Replacement, Orthopedic Surgery, Tonsillectomy, Tubal Ligation Additional Past Surgical History / Comment(s): josy mastectomy /lymph nodes out on left side,thyroidectomy,back surgery X 8,Gastric Bypass Surgery (Mynor-en-Y) 2005 at [facility], bowel resection due to perforation, incisional HERNIA , VENTRAL HERNIA , colonoscopy, R ankle surgery x 2, L breast bx, tummy tuck, thyroid bx, knee arthroscopy (unsure which), biopsy R clavicle. rt hip replacement x 3, 03/06/22-EGD WITH DILATATION Past Anesthesia/Blood Transfusion Reactions: No Reported Reaction Additional Past Anesthesia/Blood Transfusion Reaction / Comment(s): blood transfusions with no problems Smoking Status: Former smoker - Past Family History Mother Family Medical History: Cancer Additional Family Medical History / Comment(s): breast Father Family Medical History: Coronary Artery Disease (CAD), Hypertension Additional Family Medical History / Comment(s): CABG 2015 Sister(s) Family Medical History: Cancer Additional Family Medical History / Comment(s): BREAST CANCER Medications and Allergies Home Medications Medication Instructions Recorded Confirmed Type Budesonide-Formot 160-4.5 Mcg 2 puff INHALATION RT-BID 03/28/15 04/07/22 History [Symbicort 160-4.5 Mcg Inhaler] Exemestane [Aromasin] 25 mg PO DAILY 11/22/15 04/07/22 History Potassium Chloride ER [K-Dur 20] 20 meq PO DAILY 02/08/16 04/07/22 History Alendronate Sodium [Fosamax] 70 mg PO MO 01/28/19 04/07/22 History Sucralfate [Carafate] 1 gm PO ACHS 01/28/19 04/07/22 History buPROPion XL [Wellbutrin XL] 300 mg PO DAILY 01/28/19 04/07/22 History ALPRAZolam [Xanax] 2 mg PO QID PRN 12/20/20 04/07/22 History Dextroamphetamine/Amphetamine 20 mg PO BID PRN 12/20/20 04/07/22 History [Adderall] Divalproex [Depakote] 250 mg PO TID 12/20/20 04/07/22 History Levothyroxine Sodium [Synthroid] 175 mcg PO DAILY 12/20/20 04/07/22 History Metoprolol Tartrate [Lopressor] 25 mg PO BID 12/20/20 04/07/22 History Ergocalciferol [Vitamin D2 (1250 1,250 mcg PO TU 03/05/22 04/07/22 History Mcg = 77274 Iu)] Pantoprazole [Protonix] 40 mg PO DAILY #30 tab 03/06/22 04/07/22 Rx Allergies Allergy/AdvReac Type Severity Reaction Status Date / Time ibuprofen Allergy Severe GI bleed Verified 04/03/22 15:02 Iodinated Contrast Media Allergy Unknown Rash/Hives Verified 04/03/22 15:02 [Iodinated Contrast Media - IV Dye] Penicillins Allergy Rash/Hives/ Verified 04/03/22 15:02 VOMITING tetracycline Allergy Rash/Hives/ Verified 04/03/22 15:02 VOMITING duloxetine HCl AdvReac Nausea & Verified 04/03/22 15:02 [From Cymbalta] Vomiting gabapentin AdvReac Unknown Verified 04/07/22 08:09 Surgical - Exam Vital Signs Temp Pulse Resp BP Pulse Ox 98.2 F 67 16 108/64 100 04/07/22 07:53 04/07/22 07:53 04/07/22 07:53 04/07/22 07:53 04/07/22 07:53
[2022-04-07] MEDS ORDERED: ACETAMINOPHEN TAB 500 MG TAB PO PRN (08:16)
[2022-04-07 08:26] LABS: Glucose,Whole Blood 98 mg/dL (70-110)
[2022-04-07 08:37] LABS: ALT 35 U/L (4-34); African American GFR (CKD) >90 (>60 ml/min/1.73 sqM); Albumin 4.3 g/dL (3.5-5.0); Anion Gap 7 mmol/L; Blood Urea Nitrogen 15 mg/dL (7-17); Calcium 7.8 mg/dL (8.4-10.2); Carbon Dioxide 21 mmol/L (22-30); Chloride 112 mmol/L (98-107); Glucose 92 mg/dL (74-99); Non-African American GFR(CKD) >90 (>60 ml/min/1.73 sqM); Sodium 140 mmol/L (137-145); Total Bilirubin 0.4 mg/dL (0.2-1.3); Total Protein 6.9 g/dL (6.3-8.2)
[2022-04-07 08:43] LABS: AST 32 U/L (14-36); Alkaline Phosphatase 61 U/L (38-126); Potassium 4.2 mmol/L (3.5-5.1)
[2022-04-07] MEDS ORDERED: MIDAZOLAM 2 MG/2 ML VIAL IV ONE (08:45)
[2022-04-07] MEDS ORDERED: NEOSTIGMINE 1 MG/ML 10 ML VIAL ONE (09:00)
[2022-04-07] MEDS ORDERED: PHENYLEPHRINE-0.9% NACL SYG 1,000 MCG/10 ML SYRINGE ONE (09:00)
[2022-04-07] MEDS ORDERED: ePHEDrine 50 MG/ML 1 ML VIAL ONE (09:00)
[2022-04-07] MEDS ORDERED: SUCCINYLCHOLINE CHLORIDE 100 MG/5 ML SYR IV ONE (09:00)
[2022-04-07] MEDS ORDERED: PROPOFOL 10 MG/ML 20 ML VIAL IV ONE (09:00)
[2022-04-07] MEDS ORDERED: GLYCOPYRROLATE 0.2 MG/ML 2 ML VIAL ONE (09:00)
[2022-04-07] MEDS ORDERED: HYDROmorphone (PF) 1 MG/ML ONE (09:00)
[2022-04-07] MEDS ORDERED: ROCURONIUM 10 MG/ML (5 ML VIAL) IV ONE ×2 (09:00)
[2022-04-07] MEDS ORDERED: fentaNYL (PF) 50 MCG/ML 2 ML AMP ONE (09:00)
[2022-04-07] MEDS ORDERED: MIDAZOLAM 2 MG/2 ML VIAL ONE (09:00)
[2022-04-07] MEDS ORDERED: BUPIVACAIN-EPI 0.25%-1:200,000 30 ML VIAL SQ ONE ×2 (09:29→09:44)
[2022-04-07] MEDS ORDERED: LACTATED RINGERS 1,000 ML IV ONE (10:47)
[2022-04-07 11:08] VITALS: TEMP 97.2
[2022-04-07] MEDS ORDERED: diphenhydrAMINE 50 MG/ML 1 ML VIAL IVP ONE (11:22)
--- NOTE | 2022-04-07 12:01 | P.OP ---
Date of Procedure: 04/07/22 Description of Procedure: SURGEON: JACY MALDONADO MD PREOPERATIVE DIAGNOSES: 1. Chronic right lower quadrant abdominal pain 2. History of gastric bypass 3. History of multiple abdominal surgeries POSTOPERATIVE DIAGNOSES: 1. Chronic right lower quadrant abdominal pain 2. History of gastric bypass 3. History of multiple abdominal surgeries OPERATION: 1. Robotic-assisted da Maribel Xi laparoscopic with extensive lysis of adhesions over 1 hr ESTIMATED BLOOD LOSS: 5 mL. SPECIMENS REMOVED: None. COMPLICATIONS: None. OPERATIVE FINDINGS: 1. No ventral hernias identified. 2. Moderate right lower quadrant adhesions from previous mesh 3. Adhesions along the pelvis sigmoid colon to bladder from previous hysterectomy 4. Interloop adhesions involving the right lower quadrant including right upper quadrant. 5. Gastric bypass unremarkable INDICATIONS: The patient is a 51-year-old female who presents persistent right lower quadrant abdominal pain. Surgical intervention with diagnostic laparoscopy, lysis of adhesions were described. Informed consent was obtained. Robotic assisted laparoscopic approach was described. Benefits and risks of the procedure including but not limited to bleeding, infection, injury to the small bowel was described. Informed consent was obtained. DESCRIPTION OF PROCEDURE: Patient was brought to the operating room, placed in supine position. After general induction, the abdomen had been prepped and draped in standard sterile fashion. The robotic da Maribel XI system was primed. After a timeout protocol was performed, the patient had been prepped and draped in standard sterile fashion. The robot was docked along the right lateral abdomen. The patient was repositioned in with right side up. Please note prior to docking of the robot; however, a 5 mm 0 degrees laparoscopic trocar entry was performed along the left upper quadrant. The abdomen was insufflated to 15 mmHg pressure which she tolerated well. Diagnostic laparoscopy was performed. Next, three 8 mm robotic ports were placed along the right lateral abdominal wall. The camera 8-mm port was maintained along mid-lateral abdomen. Please note that the ports were placed at least 10 to 15 cm away from the target anatomy. Instruments including graspers and vessel sealer were interchanged by the orthopaedic physician assistant. I had sat at the console. No evidence of incisional hernia was identified. The rest of the abdomen was unremarkable for small bowel pathology. The small bowel from the jen limb to distal ileum was inspected. The small bowel was investigated from the terminal ileum to the ligament of Treitz with finding of redundant mesentery with active small bowel volvulus involving the jejunum to the jejunojejunostomy mesenteric defect. Abnormal adhesions to the jejunojejunostomy was identified and divided. The mesentery small bowel volvulus were reduced. Adhesions along the epigastrium linvolving the transverse colon to the jen limb with an active internal hernia was lysed using vessel sealer. No herniation of bowel was found along the Mclean defect or jejunojejunostomy mesenteric defect. Adhesion of gastrojejunal anastomosis to the anterior abdominal wall was released. Moderate gaseous distention of sigmoid colon was identified with an active sigmoid volvulus similarly reduced secondary to highly redundant colon. The terminal ileum and cecum was unremarkable. Extensive lysis of adhesions over 1 hr was performed. The small bowel was viable.The robot was undocked. All pneumoperitoneum instruments were evacuated from the abdominal cavity. The incisions were reapproximated using 4-0 Monocryl in an interrupted subcuticular fashion. Please note along the trocar sites, local anesthetic was placed as a field block prior to insertion of all instruments. Exofin was applied to the skin. At the end of the procedure needle, sponge, and instrument count had been verified correct by the rn neurosurgical. The patient was transferred to postanesthesia care unit in stable condition. Plan - Discharge Summary Discharge Rx Participant: Yes New Discharge Prescriptions: New Simethicone [Gas-X] 125 mg PO AC-TID PRN #20 capsule PRN Reason: Pain Acetaminophen Tab [Tylenol Tab] 1,000 mg PO Q6HR PRN #30 tablet PRN Reason: Pain Continue Budesonide-Formot 160-4.5 Mcg [Symbicort 160-4.5 Mcg Inhaler] 2 puff INHALATION RT-BID Exemestane [Aromasin] 25 mg PO DAILY Potassium Chloride ER [K-Dur 20] 20 meq PO DAILY buPROPion XL [Wellbutrin XL] 300 mg PO DAILY Sucralfate [Carafate] 1 gm PO ACHS Alendronate Sodium [Fosamax] 70 mg PO MO ALPRAZolam [Xanax] 2 mg PO QID PRN PRN Reason: Anxiety Dextroamphetamine/Amphetamine [Adderall] 20 mg PO BID PRN PRN Reason: ADHD Divalproex [Depakote] 250 mg PO TID Levothyroxine Sodium [Synthroid] 175 mcg PO DAILY Metoprolol Tartrate [Lopressor] 25 mg PO BID Ergocalciferol [Vitamin D2 (1250 Mcg = 75028 Iu)] 1,250 mcg PO TU Pantoprazole [Protonix] 40 mg PO DAILY #30 tab Discharge Medication List Budesonide-Formot 160-4.5 Mcg [Symbicort 160-4.5 Mcg Inhaler] 2 puff INHALATION RT-BID 03/28/15 [History] Exemestane [Aromasin] 25 mg PO DAILY 11/22/15 [History] Potassium Chloride ER [K-Dur 20] 20 meq PO DAILY 02/08/16 [History] Alendronate Sodium [Fosamax] 70 mg PO MO 01/28/19 [History] Sucralfate [Carafate] 1 gm PO ACHS 01/28/19 [History] buPROPion XL [Wellbutrin XL] 300 mg PO DAILY 01/28/19 [History] ALPRAZolam [Xanax] 2 mg PO QID PRN 12/20/20 [History] Dextroamphetamine/Amphetamine [Adderall] 20 mg PO BID PRN 12/20/20 [History] Divalproex [Depakote] 250 mg PO TID 12/20/20 [History] Levothyroxine Sodium [Synthroid] 175 mcg PO DAILY 12/20/20 [History] Metoprolol Tartrate [Lopressor] 25 mg PO BID 12/20/20 [History] Ergocalciferol [Vitamin D2 (1250 Mcg = 49620 Iu)] 1,250 mcg PO TU 03/05/22 [History] Pantoprazole [Protonix] 40 mg PO DAILY #30 tab 03/06/22 [Rx] Acetaminophen Tab [Tylenol Tab] 1,000 mg PO Q6HR PRN #30 tablet 04/07/22 [Rx] Simethicone [Gas-X] 125 mg PO AC-TID PRN #20 capsule 04/07/22 [Rx] Follow up Appointment(s)/Referral(s): Jacy Maldonado MD [STAFF PHYSICIAN] - 04/15/22 (Telehealth) Patient Instructions/Handouts: Lysis of Abdominal Adhesions (DC) Activity/Diet/Wound Care/Special Instructions: Using antibacterial soap. No lifting over 10 pounds 2 weeks, April 21February shower. No bathtub soaks for 2 weeks, April 21 Wear abdominal binder daily for comfort except for showering. Use ice along incisions for today to prevent swelling. Take tylenol and simethicone scheduled for 3 days for best pain relief Discharge Disposition: HOME SELF-CARE
[2022-04-07] MEDS ORDERED: oxyCODONE-APAP 7.5-325MG 1 EACH TAB PO PRN (12:12)
[2022-04-07] MEDS ORDERED: ACETAMINOPHEN IV (For NPO) 1,000 MG in EMPTY BAG 1 BAG IVPB PRN (12:12)
[2022-04-07] MEDS ORDERED: oxyCODONE-APAP 5-325MG 1 EACH TAB PO ONE (13:06)
[2022-04-07 14:35] VITALS: BP 99/60; PULSE 46; RESP 20
== END 2022-04-07 14:30 | disposition home or self-care (01) ==
LOC: OR 07:01
PROVIDERS: ATTEND Surgery Plastic and Reconstructive Surgery
DX: K66.0 Peritoneal adhesions (postprocedural) (postinfection) (principal); G89.29 Other chronic pain; Z98.84 Bariatric surgery status; Z90.710 Acquired absence of both cervix and uterus; I10 Essential (primary) hypertension; I35.0 Nonrheumatic aortic (valve) stenosis; Z79.890 Hormone replacement therapy; Z79.899 Other long term (current) drug therapy; Z88.0 Allergy status to penicillin; Z88.1 Allergy status to other antibiotic agents; Z88.3 Allergy status to other anti-infective agents; Z88.8 Allergy status to other drugs, medicaments and biological substances; Z85.850 Personal history of malignant neoplasm of thyroid; Z85.72 Personal history of non-Hodgkin lymphomas; Z80.3 Family history of malignant neoplasm of breast; Z82.49 Family history of ischemic heart disease and other diseases of the circulatory system; Z79.51 Long term (current) use of inhaled steroids; Z88.6 Allergy status to analgesic agent; Z91.041 Radiographic dye allergy status; Z85.038 Personal history of other malignant neoplasm of large intestine; Z86.73 Personal history of transient ischemic attack (TIA), and cerebral infarction without residual deficits; Z87.891 Personal history of nicotine dependence
CPT/HCPCS: 86900; 86901; 80053; 85025; 86850; 44180; J2250; J1200; J1100; J2710; J0690; J2405; J3010; J1170 ×2; J2370; J0330; J2704; J1644

== ENCOUNTER 2022-05-26 07:49 | Day surgery (SDC) | payer MEDICARE, OTHER ==
[2022-05-22 14:40] VITALS: BMI 20.3
--- NOTE | 2022-05-26 07:35 | P.GSHP ---
History of Present Illness H&P Date: 05/26/22 CHIEF COMPLAINT: Colon screen HISTORY OF PRESENT ILLNESS: The patient is a 51-year-old female who presents for colon screen. Lower endoscopy was offered for further evaluation and management. PAST MEDICAL HISTORY: Please see list. PAST SURGICAL HISTORY: Please see list. MEDICATIONS: Please see list. ALLERGIES: Please see list. SOCIAL HISTORY: No illicit drug use FAMILY HISTORY: No reports of Crohn disease or ulcerative colitis. REVIEW OF ORGAN SYSTEMS: CONSTITUTIONAL: No reports of fevers or chills. PHYSICAL EXAM: VITAL SIGNS: Stable GENERAL: Well-developed pleasant in no acute distress. HEENT: No scleral icterus. Extraocular movements grossly intact. Moist buccal mucosa. NECK: Supple without lymphadenopathy. CHEST: Unlabored respirations. Equal bilateral excursions. CARDIOVASCULAR: Regular rate and rhythm. Distal 2+ pulses. ABDOMEN: Soft, nontender, nondistended. MUSCULOSKELETAL: No clubbing, cyanosis, or edema. ASSESSMENT: 1. Colon screen. PLAN: 1. Recommend proceeding with a lower endoscopy Past Medical History Past Medical History: Cancer, COPD, CVA/TIA, Diabetes Mellitus, GERD/Reflux, Hyperlipidemia, Hypertension, Musculoskeletal Disorder, Osteoarthritis (OA), Seizure Disorder, Skin Disorder, Thyroid Disorder Additional Past Medical History / Comment(s): Needs left hip replacement. THICKENING OF THE ESOPHAGUS/De Santiago's Esophagus. Hx cancer X6 - (hodgkins disease, thyroid, breast X2, cervical and colon cancer). PSORIASIS. TIA & CVA X3 - right side arm/leg weakness on some days. LAST SEIZURE APPROX 2009. BACK PAIN. ANEMIA. 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 WATERY STOOLS SINCE BOWEL RESECTION JANUARY 2015. Chronic bronchitis, chronic cough from COPD. Hx Diabetes - lost weight and does not take any medications anymore. DJD. Hx sepsis. History of Any Multi-Drug Resistant Organisms: MRSA Date of last positivie culture/infection: 1989 MDRO Source:: rt knee Past Surgical History: Appendectomy, Back Surgery, Bariatric Surgery, Bowel Resection, Breast Surgery, Cholecystectomy, Hernia Repair, Hysterectomy, Joint Replacement, Orthopedic Surgery, Tonsillectomy, Tubal Ligation Additional Past Surgical History / Comment(s): Bilateral mastectomy/lymph nodes out on left side, thyroidectomy, back surgery X8, Gastric Bypass Surgery (Mynor-en-Y) 2004 at [facility], bowel resection due to perforation, incisional hernia repair, ventral hernia repair, colonoscopy, right ankle surgery X2, left breast biopsy, tummy tuck, thyroid biopsy, knee arthroscopy (unsure which), biopsy right clavicle, right hip replacement X3, EGD WITH DILATATION, robotic laproscopic lysis of adhesions 04-07-22. Past Anesthesia/Blood Transfusion Reactions: No Reported Reaction Additional Past Anesthesia/Blood Transfusion Reaction / Comment(s): Hx blood transfusions with no problems. Past Psychological History: Anxiety, Depression Smoking Status: Former smoker Past Alcohol Use History: Rare Additional Past Alcohol Use History / Comment(s): Tried smoking as a teen for 2 years. Past Drug Use History: Marijuana Additional Drug Use History / Comment(s): Rare Marijuana use. - Past Family History Mother Family Medical History: Cancer Additional Family Medical History / Comment(s): Breast cancer. Father Family Medical History: Coronary Artery Disease (CAD), Hypertension Additional Family Medical History / Comment(s): CABG 2015 Sister(s) Family Medical History: Cancer Additional Family Medical History / Comment(s): BREAST CANCER. Medications and Allergies Home Medications Medication Instructions Recorded Confirmed Type Budesonide-Formot 160-4.5 Mcg 2 puff INHALATION BID 03/28/15 05/22/22 History [Symbicort 160-4.5 Mcg Inhaler] Exemestane [Aromasin] 25 mg PO DAILY 11/22/15 05/22/22 History Potassium Chloride ER [K-Dur 20] 20 meq PO DAILY 02/08/16 05/22/22 History Alendronate Sodium [Fosamax] 70 mg PO MO 01/28/19 05/22/22 History Sucralfate [Carafate] 1 gm PO QID 01/28/19 05/22/22 History buPROPion XL [Wellbutrin XL] 300 mg PO QAM 01/28/19 05/22/22 History ALPRAZolam [Xanax] 2 mg PO QID PRN 12/20/20 05/22/22 History Dextroamphetamine/Amphetamine 20 mg PO BID PRN 12/20/20 05/22/22 History [Adderall] Divalproex [Depakote] 250 mg PO TID 12/20/20 05/22/22 History Levothyroxine Sodium [Synthroid] 175 mcg PO QAM 12/20/20 05/22/22 History Metoprolol Tartrate [Lopressor] 25 mg PO BID 12/20/20 05/22/22 History Ergocalciferol [Vitamin D2 (1250 1,250 mcg PO TU 03/05/22 05/22/22 History Mcg = 18701 Iu)] Acetaminophen [Tylenol] 650 mg PO DIRECTED PRN 05/22/22 05/22/22 History Pantoprazole [Protonix] 40 mg PO QAM 05/22/22 05/22/22 History Allergies Allergy/AdvReac Type Severity Reaction Status Date / Time ibuprofen Allergy Severe GI bleed Verified 05/22/22 14:23 Iodinated Contrast Media Allergy Unknown Rash/Hives Verified 05/22/22 14:23 [Iodinated Contrast Media - IV Dye] Penicillins Allergy Rash/Hives/ Verified 05/22/22 14:23 VOMITING tetracycline Allergy Rash/Hives/ Verified 05/22/22 14:23 VOMITING duloxetine HCl AdvReac Nausea & Verified 05/22/22 14:23 [From Cymbalta] Vomiting gabapentin AdvReac Unknown Verified 05/22/22 14:23
[2022-05-26] MEDS ORDERED: LACTATED RINGERS 1,000 ML IV SCH (07:55)
[2022-05-26 08:03] VITALS: TEMP 96.6
[2022-05-26] MEDS ORDERED: LIDOCAINE 1% (10MG/ML) FOR IV START INTRADERMA ONE (08:11)
[2022-05-26] MEDS ORDERED: fentaNYL (PF) 50 MCG/ML 2 ML AMP IV ONE (09:12)
[2022-05-26] MEDS ORDERED: PROPOFOL 10 MG/ML 20 ML VIAL IV ONE (09:30)
[2022-05-26 10:11] VITALS: RESP 16
--- NOTE | 2022-05-26 10:12 | P.PCN ---
Date of Procedure: 05/26/22 Description of Procedure: PREOPERATIVE DIAGNOSIS: Personal history colon cancer status post right colectomy POSTOPERATIVE DIAGNOSIS: Tubular adenoma descending colon Tubular adenoma transverse colon Scattered colon diverticulosis OPERATION: Colonoscopy to the ileocecal valve and appendiceal orifice, cecum Colonoscopy with hot snare polypectomy SURGEON: Jacy Maldonado MD. ANESTHESIA: MAC. INDICATIONS: The patient is an 51-year-old male who presents personal history colon cancer status post resection. Last colonoscopy 5 years ago Benefits and risks were described and informed consent was obtained. DESCRIPTION OF PROCEDURE: The patient had undergone Sutab prep. The patient had been brought into the operating room and laid in the left lateral decubitus position. After adequate intravenous sedation, the rectum was examined with 2% lidocaine jelly. No external hemorrhoids were encountered. The rectal tone was within normal limits. No lesions were palpated in the rectal vault. An Olympus colonoscope was advanced until the cecum, ileocecal valve and appendiceal orifice were clearly viewed. The prep was excellent. Scattered diverticulosis was encountered. Colonic polyps were found and removed. No evidence of focal colitis was found. Retroflexion of the scope demonstrated grade 1 internal hemorrhoids without active bleeding or inflammation. The colon was desufflated. The patient had tolerated the procedure well. Withdrawal time was over 6 minutes. FINDINGS: Aronchick preparation quality scale 1 (1-5) Internal hemorrhoids, grade 1 No external hemorrhoids No arteriovenous malformations. Few scattered diverticulosis Removal of 2 polyps: - Snare polypectomy 40 cm from the anal verge, 8 mm tubulovillous adenoma polyp, descending colon - Snare polypectomy at transverse colon, 3 mm flat villous adenoma polyp. No focal colitis. RECOMMENDATIONS: Repeat colonoscopy in one year, 2022 Plan - Discharge Summary Discharge Rx Participant: No New Discharge Prescriptions: Continue Budesonide-Formot 160-4.5 Mcg [Symbicort 160-4.5 Mcg Inhaler] 2 puff INHALATION BID Exemestane [Aromasin] 25 mg PO DAILY Potassium Chloride ER [K-Dur 20] 20 meq PO DAILY buPROPion XL [Wellbutrin XL] 300 mg PO QAM Alendronate Sodium [Fosamax] 70 mg PO MO ALPRAZolam [Xanax] 2 mg PO QID PRN PRN Reason: Anxiety Dextroamphetamine/Amphetamine [Adderall] 20 mg PO BID PRN PRN Reason: ADHD Divalproex [Depakote] 250 mg PO TID Levothyroxine Sodium [Synthroid] 175 mcg PO QAM Metoprolol Tartrate [Lopressor] 25 mg PO BID Pantoprazole [Protonix] 40 mg PO QAM Ergocalciferol [Vitamin D2 (1250 Mcg = 12991 Iu)] 1,250 mcg PO TU Acetaminophen [Tylenol] 650 mg PO DIRECTED PRN PRN Reason: Pain Discontinued Sucralfate [Carafate] 1 gm PO QID Discharge Medication List Budesonide-Formot 160-4.5 Mcg [Symbicort 160-4.5 Mcg Inhaler] 2 puff INHALATION BID 03/28/15 [History] Exemestane [Aromasin] 25 mg PO DAILY 11/22/15 [History] Potassium Chloride ER [K-Dur 20] 20 meq PO DAILY 02/08/16 [History] Alendronate Sodium [Fosamax] 70 mg PO MO 01/28/19 [History] buPROPion XL [Wellbutrin XL] 300 mg PO QAM 01/28/19 [History] ALPRAZolam [Xanax] 2 mg PO QID PRN 12/20/20 [History] Dextroamphetamine/Amphetamine [Adderall] 20 mg PO BID PRN 12/20/20 [History] Divalproex [Depakote] 250 mg PO TID 12/20/20 [History] Levothyroxine Sodium [Synthroid] 175 mcg PO QAM 12/20/20 [History] Metoprolol Tartrate [Lopressor] 25 mg PO BID 12/20/20 [History] Ergocalciferol [Vitamin D2 (1250 Mcg = 70110 Iu)] 1,250 mcg PO TU 03/05/22 [History] Acetaminophen [Tylenol] 650 mg PO DIRECTED PRN 05/22/22 [History] Pantoprazole [Protonix] 40 mg PO QAM 05/22/22 [History] Follow up Appointment(s)/Referral(s): Jacy Maldonado MD [STAFF PHYSICIAN] - 06/12/22 Patient Instructions/Handouts: Diverticulosis (DC), Colorectal Polyps (GEN), Diverticulosis Diet (GEN) Activity/Diet/Wound Care/Special Instructions: Repeat colonoscopy in one year, 2022
[2022-05-26 10:31] VITALS: BP 102/59; PULSE 68
== END 2022-05-26 11:02 | disposition home or self-care (01) ==
LOC: ORWHC2ENDO 07:49
PROVIDERS: ATTEND Surgery Plastic and Reconstructive Surgery
DX: Z12.11 Encounter for screening for malignant neoplasm of colon (principal); D12.4 Benign neoplasm of descending colon; K63.5 Polyp of colon; K57.30 Diverticulosis of large intestine without perforation or abscess without bleeding; K64.0 First degree hemorrhoids; Z85.038 Personal history of other malignant neoplasm of large intestine; J44.9 Chronic obstructive pulmonary disease, unspecified; Z15.09 Genetic susceptibility to other malignant neoplasm; E11.9 Type 2 diabetes mellitus without complications; K21.9 Gastro-esophageal reflux disease without esophagitis; E78.5 Hyperlipidemia, unspecified; I10 Essential (primary) hypertension; I69.351 Hemiplegia and hemiparesis following cerebral infarction affecting right dominant side; M19.90 Unspecified osteoarthritis, unspecified site; G40.909 Epilepsy, unspecified, not intractable, without status epilepticus; E07.9 Disorder of thyroid, unspecified; Z90.49 Acquired absence of other specified parts of digestive tract; Z85.71 Personal history of Hodgkin lymphoma; Z85.3 Personal history of malignant neoplasm of breast; Z85.41 Personal history of malignant neoplasm of cervix uteri; Z85.850 Personal history of malignant neoplasm of thyroid; D64.9 Anemia, unspecified; Z86.14 Personal history of Methicillin resistant Staphylococcus aureus infection; Z98.84 Bariatric surgery status; Z98.890 Other specified postprocedural states; Z98.51 Tubal ligation status; Z90.13 Acquired absence of bilateral breasts and nipples; Z96.641 Presence of right artificial hip joint; Z87.891 Personal history of nicotine dependence; Z80.3 Family history of malignant neoplasm of breast; Z82.49 Family history of ischemic heart disease and other diseases of the circulatory system; Z79.811 Long term (current) use of aromatase inhibitors; Z79.83 Long term (current) use of bisphosphonates; Z79.890 Hormone replacement therapy; Z79.899 Other long term (current) drug therapy; Z88.0 Allergy status to penicillin; Z88.8 Allergy status to other drugs, medicaments and biological substances; Z88.6 Allergy status to analgesic agent; Z88.1 Allergy status to other antibiotic agents; Z91.041 Radiographic dye allergy status
CPT/HCPCS: 88305; 45385; J3010; J2704

== ENCOUNTER 2022-07-18 08:23 | Day surgery (SDC) | payer MEDICARE, OTHER ==
[2022-07-17 09:49] VITALS: BMI 20.3
--- NOTE | 2022-07-18 06:52 | P.GSHP ---
History of Present Illness H&P Date: 07/18/22 CHIEF COMPLAINT: Ventral hernia. HISTORY OF PRESENT ILLNESS: The patient is a 51-year-old female who presents with chronic pain from a prior ventral hernia repair with mesh that has been worse for 1 year. She is seeking resection of her mesh and repair of her hernia. She reports change in bowel habits as a result. Now she presents for further evaluation and management. PAST MEDICAL HISTORY: Please see list and reviewed. PAST SURGICAL HISTORY: Please see list and reviewed. MEDICATIONS: Please see list and reviewed. ALLERGIES: Please see list and reviewed. SOCIAL HISTORY: Please see list and reviewed. FAMILY HISTORY: No reports of Crohn disease or ulcerative colitis. REVIEW OF ORGAN SYSTEMS: CONSTITUTIONAL: No reports of fevers or chills. GI: Denies any blood in stools or constipation. HEENT: Denies any trouble with vision, hearing or nosebleeds. No difficulty s wallowing. LYMPHATIC: The patient denies any lumps and bumps around the neck. ENDOCRINE: Denies any thyroid disorders. Denies any blood sugar glucose intolerance. RESPIRATORY: Denies pneumonia. Denies any troubles with breathing or dyspnea on exertion. CARDIOVASCULAR: Denies any chest pain, palpitations, or recent heart attacks. GENITOURINARY: Denies any blood in urine or increased urinary frequency. MUSCULOSKELETAL: Has back pain, stiffness, joint arthritis. NEUROLOGIC: Denies any numbness or tingling along the distal extremities. No seizure disorders or headaches. PSYCHIATRIC: Has depression. No suidical ideation. HEMATOLOGIC: Denies any abnormal bleeding or bruising. BREASTS: Denies any breast lumps, pain or nipple discharge. PHYSICAL EXAM: VITAL SIGNS: Stable GENERAL: Well-developed pleasant female in no acute distress. HEENT: No scleral icterus. Extraocular movements grossly intact. Moist buccal mucosa. NECK: Supple without lymphadenopathy. CHEST: Unlabored respirations. Equal bilateral excursions. CARDIOVASCULAR: Regular rate and rhythm. Distal 2+ pulses. ABDOMEN: Soft, nondistended. Tender along the abdomen. MUSCULOSKELETAL: No clubbing, cyanosis, or edema. SKIN: Well perfused. PSYCH: Alert and oriented. No focal or lateralizing signs. ASSESSMENT: 1. Ventral hernia. PLAN: 1. Recommend proceeding with robotic ventral hernia repair with mesh. 2. Benefits and risks of surgical intervention was discussed including possibility of open technique. 3. DVT prophylaxis. 4. Antibiotic prophylaxis. 5. She is elevated risk with multiple co-morbidities 6. Nutritional assessment for history of gastric bypass 7. Non-narcotic pain managment reviewed. 8. Tobacco cessation and counseling performed. Past Medical History Past Medical History: Cancer, COPD, CVA/TIA, Diabetes Mellitus, GERD/Reflux, Hyperlipidemia, Hypertension, Musculoskeletal Disorder, Osteoarthritis (OA), Seizure Disorder, Skin Disorder, Thyroid Disorder Additional Past Medical History / Comment(s): Needs left hip replacement. THICKENING OF THE ESOPHAGUS/De Santiago's Esophagus. Hx cancer X6 - (hodgkins disease, thyroid, breast X2, cervical and colon cancer). PSORIASIS. TIA & CVA X3 - right side arm/leg weakness on some days. LAST SEIZURE APPROX 2009. BACK PAIN. ANEMIA. 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 WATERY STOOLS SINCE BOWEL RESECTION JANUARY 2015. Chronic bronchitis, chronic cough from COPD. Hx Diabetes - lost weight and does not take any medications anymore. DJD. Hx sepsis. History of Any Multi-Drug Resistant Organisms: MRSA Date of last positivie culture/infection: 1989 MDRO Source:: rt knee Past Surgical History: Appendectomy, Back Surgery, Bariatric Surgery, Bowel Resection, Breast Surgery, Cholecystectomy, Hernia Repair, Hysterectomy, Joint Replacement, Orthopedic Surgery, Tonsillectomy, Tubal Ligation Additional Past Surgical History / Comment(s): Bilateral mastectomy/lymph nodes out on left side, thyroidectomy, back surgery X8, Gastric Bypass Surgery (Mynor-en-Y) 2005 at [facility], bowel resection due to perforation, incisional hernia repair, ventral hernia repair, colonoscopy, right ankle surgery X2, left breast biopsy, tummy tuck, thyroid biopsy, knee arthroscopy (unsure which), biopsy right clavicle, right hip replacement X3, EGD WITH DILATATION, robotic laproscopic lysis of adhesions 04-07-22. Past Anesthesia/Blood Transfusion Reactions: No Reported Reaction Additional Past Anesthesia/Blood Transfusion Reaction / Comment(s): Hx blood transfusions with no problems. Smoking Status: Former smoker - Past Family History Mother Family Medical History: Cancer Additional Family Medical History / Comment(s): Breast cancer. Father Family Medical History: Coronary Artery Disease (CAD), Hypertension Additional Family Medical History / Comment(s): CABG 2015 Sister(s) Family Medical History: Cancer Additional Family Medical History / Comment(s): BREAST CANCER. Medications and Allergies Home Medications Medication Instructions Recorded Confirmed Type Budesonide-Formot 160-4.5 Mcg 2 puff INHALATION BID 03/28/15 07/17/22 History [Symbicort 160-4.5 Mcg Inhaler] Potassium Chloride ER [K-Dur 20] 20 meq PO DAILY 02/08/16 07/17/22 History Alendronate Sodium [Fosamax] 70 mg PO MO 01/28/19 07/17/22 History buPROPion XL [Wellbutrin XL] 300 mg PO QAM 01/28/19 07/17/22 History ALPRAZolam [Xanax] 2 mg PO QID PRN 12/20/20 07/17/22 History Dextroamphetamine/Amphetamine 20 mg PO BID PRN 12/20/20 07/17/22 History [Adderall] Divalproex [Depakote] 250 mg PO TID 12/20/20 07/17/22 History Levothyroxine Sodium [Synthroid] 175 mcg PO QAM 12/20/20 07/17/22 History Metoprolol Tartrate [Lopressor] 25 mg PO BID 12/20/20 07/17/22 History Ergocalciferol [Vitamin D2 (1250 1,250 mcg PO TU 03/05/22 07/17/22 History Mcg = 58034 Iu)] Acetaminophen [Tylenol] 650 mg PO DIRECTED PRN 05/22/22 07/17/22 History Pantoprazole [Protonix] 40 mg PO QAM 05/22/22 07/17/22 History Allergies Allergy/AdvReac Type Severity Reaction Status Date / Time ibuprofen Allergy Severe GI bleed Verified 07/17/22 09:39 Iodinated Contrast Media Allergy Unknown Rash/Hives Verified 07/17/22 09:39 [Iodinated Contrast Media - IV Dye] Penicillins Allergy Rash/Hives/ Verified 07/17/22 09:39 VOMITING tetracycline Allergy Rash/Hives/ Verified 07/17/22 09:39 VOMITING duloxetine HCl AdvReac Nausea & Verified 07/17/22 09:39 [From Cymbalta] Vomiting gabapentin AdvReac Unknown Verified 07/17/22 09:39
[~2022-07-18 08:23] MED LIST changes: +ACETAMINOPHEN TAB 500 MG TAB PO STA; -HYDROmorphone 0.5 MG/0.5 ML SYRINGE IVP PRN; -Pre Op ABX Message 1 EACH MISC MISCELLANE ONE; +SCOPOLAMINE 1 MG/72 HR PATCH TRANSDERM ONE; +SCOPOLAMINE 1 MG/72 HR PATCH TRANSDERM STA
[2022-07-18] MEDS ORDERED: MIDAZOLAM 2 MG/2 ML VIAL IVP ONE (09:30)
[2022-07-18] MEDS ORDERED: fentaNYL (PF) 50 MCG/ML 2 ML AMP IVP ONE (09:33)
[2022-07-18 09:37] LABS: Basophils % (A) 1 %; Eosinophils # (A) 0.2 k/uL (0-0.7); Eosinophils % (A) 3 %; HCT 34.7 % (34.0-46.0); HGB 11.8 gm/dL (11.4-16.0); Lymphocytes # (A) 2.1 k/uL (1.0-4.8); Lymphocytes % (A) 35 %; MCH 32.4 pg (25.0-35.0); MCHC 33.9 g/dL (31.0-37.0); MCV 95.5 fL (80.0-100.0); Mean Platelet Volume 8.2; Monocytes # (A) 0.3 k/uL (0-1.0); Monocytes % (A) 5 %; Neutrophils # (A) 3.2 k/uL (1.3-7.7); Neutrophils % (A) 54 %; Platelet Count 270 k/uL (150-450); RBC 3.63 m/uL (3.80-5.40); RDW 13.1 % (11.5-15.5)
[2022-07-18 09:42] LABS: ALT 31 U/L (4-34); AST 30 U/L (14-36); African American GFR (CKD) >90 (>60 ml/min/1.73 sqM); Albumin 4.7 g/dL (3.5-5.0); Alkaline Phosphatase 89 U/L (38-126); Anion Gap 11 mmol/L; Blood Urea Nitrogen 21 mg/dL (7-17); Calcium 8.5 mg/dL (8.4-10.2); Carbon Dioxide 20 mmol/L (22-30); Chloride 109 mmol/L (98-107); Glucose 95 mg/dL (74-99); Non-African American GFR(CKD) >90 (>60 ml/min/1.73 sqM); Potassium 4.2 mmol/L (3.5-5.1); Sodium 140 mmol/L (137-145); Total Bilirubin 0.5 mg/dL (0.2-1.3); Total Protein 7.1 g/dL (6.3-8.2)
[2022-07-18] MEDS ORDERED: BUPIVACAINE (PF) 0.25% 30 ML VIAL SQ ONE ×2 (10:21→11:11)
--- NOTE | 2022-07-18 10:24 | P.ANPRN ---
Procedure Note - Anesthesia - Nerve Block Performed Bilateral Erector Spinae Single Time Out Performed: Yes Date of Procedure: 07/18/22 Procedure Start Time: : Procedure Stop Time: : Location of Patient: PreOp Indication: Acute Post-Operative Pain, Requested by Surgeon Sedation Type: Sedate with meaningful contact maintained Preparation: Sterile Prep Position: Prone Catheter: None Needle Types: Pajunk Needle Gauge: 20 Ultrasound used to visualize needle placement: Yes Ultrasound used to observe medication spread: Yes Injectate: Other (see comment) (Ropivacaine 0.25% 30 ml + decadron 5 mg per side) Blood Aspirated: No Pain Paresthesia on Injection Noted: No Resistance on Injection: Normal Image Stored and Saved: Yes Events: Uneventful and Well Tolerated
[2022-07-18] MEDS ORDERED: SUCCINYLCHOLINE CHLORIDE 200 MG/10 ML VIAL IV ONE (10:38)
[2022-07-18] MEDS ORDERED: PROPOFOL 10 MG/ML 20 ML VIAL IV ONE (10:38)
[2022-07-18] MEDS ORDERED: KETAMINE 10 MG/ML 20 ML VIAL ONE (10:38)
[2022-07-18] MEDS ORDERED: PHENYLEPHRINE-0.9% NACL SYG 1,000 MCG/10 ML SYRINGE ONE (10:38)
[2022-07-18] MEDS ORDERED: GLYCOPYRROLATE 0.2 MG/ML 2 ML VIAL ONE (10:38)
[2022-07-18] MEDS ORDERED: ROCURONIUM 10 MG/ML (5 ML VIAL) IV ONE (10:38)
[2022-07-18] MEDS ORDERED: HYDROmorphone (PF) 1 MG/ML ONE (10:38)
[2022-07-18] MEDS ORDERED: NEOSTIGMINE 1 MG/ML 10 ML VIAL ONE (10:38)
[2022-07-18] MEDS ORDERED: fentaNYL (PF) 50 MCG/ML 2 ML AMP ONE (10:38)
[2022-07-18] MEDS ORDERED: LIDOCAINE 2% INJ 20 MG/ML (2 ML VIAL) ONE (10:38)
[2022-07-18] MEDS ORDERED: LACTATED RINGERS 1,000 ML IV ONE (12:16)
--- NOTE | 2022-07-18 12:34 | P.OP ---
Date of Procedure: 07/18/22 Description of Procedure: SURGEON: JACY MALDONADO MD PREOPERATIVE DIAGNOSES: 1. Recurrent incisional ventral hernia with chronic pain 2. Intra-abdominal peritoneal adhesions 3. History of gastric bypass 4. History of colon cancer status post right colectomy POSTOPERATIVE DIAGNOSES: 1. Recurrent incisional ventral hernia with chronic pain, 4 x 5 cm 2. Intra-abdominal peritoneal adhesions 3. History of gastric bypass 4. History of colon cancer status post right colectomy 5. Intra-abdominal peritoneal adhesions, moderate OPERATION: 1. Robotic-assisted daVinci Xi laparoscopic repair of recurrent reducible incisional ventral hernia 4 x 5 cm without mesh 2. Robotic-assisted daVinci Xi laparoscopic extensive lysis of adhesions over 1 hour 3. Explantation of foreign body, mesh ANESTHESIA: General with local ESTIMATED BLOOD LOSS: 20 mL. SPECIMENS: None. COMPLICATIONS: None. Operative Findings: 1. Severe intra-abdominal adhesions with explantation a prior mesh right lower quadrant had prior colectomy site 2. Extensive lysis of adhesions over 1 hour robotic-assisted approach, mesh repair prohibited given severe reaction to foreign body INDICATIONS: The patient is a 51-year-old female who presents with chronic right lower quadrant abdominal pain from prior incisional hernia repair to recurrent adhesions. Surgical intervention with laparoscopic versus robotic and open techniques were reviewed. Placement of mesh was also reviewed. Benefits and risks were thoroughly described. Informed consent was obtained. DESCRIPTION OF PROCEDURE: The patient was brought into the operating room and laid in supine position. After general induction, the abdomen had been prepped and draped in standard sterile fashion. Ioban draping was also placed. Prior to incision, a timeout protocol was confirmed with surgical team regarding the patient's name including procedures to be performed. The robot was primed prior to the procedure. A field block using local anesthetis was placed along hernia site including the proposed port sites. Initial incision was made with an #11 blade along the left upper quadrant. A 0 degree 5 mm laparoscopic trocar entry was performed. Diagnostic laparoscopy demonstrated severe peritoneal adhesions along the midline; however the upper abdomen was free. Peritoneal adhesions of small bowel to the abdominal wall along the midline was identified. A 8 mm trocar was placed along the epigastrium and right upper quadrant. The 5- mm port was exchanged for an 8 mm robotic port. Placements of the ports were 20 cm from the target anatomy and 10 cm apart. The da Maribel XI robot was previously primed, prepped and draped then docked along the left side of the patient. I then sat at the robot Da Maribel XI console where working arms of the robot including Bovie cautery connected to robotic scissors, vessel sealer and graspers placed by the printer assistant. Adhesions along the midline were initially addressed with scissors and vessel sealer however limited view of the left upper quadrant was confirmed. The robot was docked for repositioning of trochars. Additional two ports were then placed along the right lateral abdominal wall 8 mm trochars. The robot was re-docked. The right side was positioned up and extensive lysis of adhesions occurred over 1 hour without enterotomies using vessel sealer. The hernia bordering fascia was cleaned of peritoneal fat. Next, hemostasis was checked with cautery. The hernia defect was oversewn using #1 StrataFix with fascial imbrication 3. Mesh placement was avoided given the severe peritoneal adhesions and foreign body reaction to the mesh. A final endoscopic imaging was obtained. All instruments and pneumoperitoneum were evacuated from the abdominal cavity. The da Maribel XI robot was undocked from the patient. I re-scrubbed into the case for closure of incisions. The incisions were reapproximated using 4-0 Monocryl in an interrupted subcuticular fashion. Liquid glue was applied to the skin. At the end of the procedure, needle, sponge, and instrument count had been verified correct by surgical product sales consultant. The patient was taken to the postanesthesia care unit in stable condition with abdominal binder. Plan - Discharge Summary Discharge Rx Participant: No New Discharge Prescriptions: New Cyclobenzaprine [Flexeril] 10 mg PO TID #30 tab Simethicone [Gas-X] 125 mg PO AC-TID PRN #20 capsule PRN Reason: Pain Acetaminophen Tab [Tylenol Tab] 1,000 mg PO Q6HR PRN #30 tablet PRN Reason: Pain Continue Budesonide-Formot 160-4.5 Mcg [Symbicort 160-4.5 Mcg Inhaler] 2 puff INHALATION BID Potassium Chloride ER [K-Dur 20] 20 meq PO DAILY buPROPion XL [Wellbutrin XL] 300 mg PO QAM Alendronate Sodium [Fosamax] 70 mg PO MO ALPRAZolam [Xanax] 2 mg PO QID PRN PRN Reason: Anxiety Dextroamphetamine/Amphetamine [Adderall] 20 mg PO BID PRN PRN Reason: ADHD Divalproex [Depakote] 250 mg PO TID Levothyroxine Sodium [Synthroid] 175 mcg PO QAM Metoprolol Tartrate [Lopressor] 25 mg PO BID Pantoprazole [Protonix] 40 mg PO QAM Ergocalciferol [Vitamin D2 (1250 Mcg = 36420 Iu)] 1,250 mcg PO TU Discontinued Acetaminophen [Tylenol] 650 mg PO DIRECTED PRN PRN Reason: Pain Discharge Medication List Budesonide-Formot 160-4.5 Mcg [Symbicort 160-4.5 Mcg Inhaler] 2 puff INHALATION BID 03/28/15 [History] Potassium Chloride ER [K-Dur 20] 20 meq PO DAILY 02/08/16 [History] Alendronate Sodium [Fosamax] 70 mg PO MO 01/28/19 [History] buPROPion XL [Wellbutrin XL] 300 mg PO QAM 01/28/19 [History] ALPRAZolam [Xanax] 2 mg PO QID PRN 12/20/20 [History] Dextroamphetamine/Amphetamine [Adderall] 20 mg PO BID PRN 12/20/20 [History] Divalproex [Depakote] 250 mg PO TID 12/20/20 [History] Levothyroxine Sodium [Synthroid] 175 mcg PO QAM 12/20/20 [History] Metoprolol Tartrate [Lopressor] 25 mg PO BID 12/20/20 [History] Ergocalciferol [Vitamin D2 (1250 Mcg = 16655 Iu)] 1,250 mcg PO TU 03/05/22 [History] Pantoprazole [Protonix] 40 mg PO QAM 05/22/22 [History] Acetaminophen Tab [Tylenol Tab] 1,000 mg PO Q6HR PRN #30 tablet 07/18/22 [Rx] Cyclobenzaprine [Flexeril] 10 mg PO TID #30 tab 07/18/22 [Rx] Simethicone [Gas-X] 125 mg PO AC-TID PRN #20 capsule 07/18/22 [Rx] Follow up Appointment(s)/Referral(s): Jacy Maldonado MD [STAFF PHYSICIAN] - 07/22/22 (Telehealth) Patient Instructions/Handouts: Lysis of Abdominal Adhesions (DC), Incisional Hernia (GEN), Ventral Hernia Repair (GEN) Activity/Diet/Wound Care/Special Instructions: No lifting for 4 pounds in 4 weeks, Aug 18 Using antibacterial soap. May shower. No bathtub soaks for 2 weeks, Aug 01 Wear abdominal binder daily for comfort except for showering. Use ice along incisions for today to prevent swelling. Discharge Disposition: HOME SELF-CARE
[2022-07-18] MEDS: HYDROmorphone 0.5 MG/0.5 ML SYRINGE IVP PRN ×2 (12:52→13:11)
[2022-07-18 13:56] VITALS: TEMP 97.1
[2022-07-18 14:34] VITALS: RESP 16
[2022-07-18 14:59] VITALS: BP 103/70; PULSE 78
== END 2022-07-18 15:26 | disposition home or self-care (01) ==
LOC: OR 08:23
PROVIDERS: ATTEND Surgery Plastic and Reconstructive Surgery
DX: K43.2 Incisional hernia without obstruction or gangrene (principal); I10 Essential (primary) hypertension; E78.5 Hyperlipidemia, unspecified; E11.9 Type 2 diabetes mellitus without complications; K21.9 Gastro-esophageal reflux disease without esophagitis; K66.0 Peritoneal adhesions (postprocedural) (postinfection); J44.9 Chronic obstructive pulmonary disease, unspecified; M19.90 Unspecified osteoarthritis, unspecified site; G40.909 Epilepsy, unspecified, not intractable, without status epilepticus; E07.9 Disorder of thyroid, unspecified; Z85.71 Personal history of Hodgkin lymphoma; Z87.19 Personal history of other diseases of the digestive system; Z90.49 Acquired absence of other specified parts of digestive tract; Z86.73 Personal history of transient ischemic attack (TIA), and cerebral infarction without residual deficits; Z80.0 Family history of malignant neoplasm of digestive organs; Z98.84 Bariatric surgery status; Z90.710 Acquired absence of both cervix and uterus; Z90.89 Acquired absence of other organs; Z87.891 Personal history of nicotine dependence; Z80.3 Family history of malignant neoplasm of breast; Z82.49 Family history of ischemic heart disease and other diseases of the circulatory system; Z79.51 Long term (current) use of inhaled steroids; Z88.0 Allergy status to penicillin; Z88.1 Allergy status to other antibiotic agents; Z79.899 Other long term (current) drug therapy
CPT/HCPCS: 80053; 85025; 88300; 49652; J2250; J0330; J1100; J2710; J0690; J2405; J3010; J1170 ×2; J2370; J2704; J1644; J2001

== ENCOUNTER 2024-12-14 07:45 | Day surgery (SDC) | payer MEDICARE, OTHER ==
[~2024-12-14 07:45] MED LIST changes: -ACETAMINOPHEN TAB 500 MG TAB PO STA; -DEXAMETHASONE SOD PHOSPHATE 4 MG/ML 1 ML VIAL IV ONE; -HEPARIN SODIUM,PORCINE/PF 5,000 UNIT/0.5 ML SYRINGE SQ PRN; -ONDANSETRON 4 MG/2 ML VIAL IVP ONE; -SCOPOLAMINE 1 MG/72 HR PATCH TRANSDERM ONE; -SCOPOLAMINE 1 MG/72 HR PATCH TRANSDERM STA
--- NOTE | 2024-12-14 08:13 | P.GSHP ---
History of Present Illness H&P Date: 12/14/24 CHIEF COMPLAINT: GERD and colon screen HISTORY OF PRESENT ILLNESS: The patient is a 54-year-old female who presents with gastroesophageal reflux disease and need for colon screen. Upper and lower endoscopy were offered for further evaluation and management. PAST MEDICAL HISTORY: Please see list. PAST SURGICAL HISTORY: Please see list. MEDICATIONS: Please see list. ALLERGIES: Please see list. SOCIAL HISTORY: No illicit drug use FAMILY HISTORY: No reports of Crohn disease or ulcerative colitis. REVIEW OF ORGAN SYSTEMS: CONSTITUTIONAL: No reports of fevers or chills. GI: Denies any blood in stools or constipation. PHYSICAL EXAM: VITAL SIGNS: Stable GENERAL: Well-developed pleasant in no acute distress. HEENT: No scleral icterus. Extraocular movements grossly intact. Moist buccal mucosa. NECK: Supple without lymphadenopathy. CHEST: Unlabored respirations. Equal bilateral excursions. CARDIOVASCULAR: Regular rate and rhythm. Distal 2+ pulses. ABDOMEN: Soft, nondistended. MUSCULOSKELETAL: No clubbing, cyanosis, or edema. ASSESSMENT: 1. Gastroesophageal reflux disease 2. Colon screen. PLAN: 1. Recommend proceeding with an upper and lower endoscopy Past Medical History Past Medical History: Cancer, COPD, CVA/TIA, Diabetes Mellitus, GERD/Reflux, Hyperlipidemia, Hypertension, Musculoskeletal Disorder, Osteoarthritis (OA), Seizure Disorder, Skin Disorder, Thyroid Disorder Additional Past Medical History / Comment(s): THICKENING OF THE ESOPHAGUS/De Santiago's Esophagus. Hx cancer X8 - (hodgkins disease, thyroid, breast X2, cervical, thymus and colon cancer). PSORIASIS. 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 BACK PAIN. heart murmur, ANEMIA. 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 Chronic bronchitis, chronic cough from COPD. Hx Diabetes - lost weight and does not take any medications anymore. DJD. Hx sepsis. current hiatal hernia causing abd. pain, acid reflux which is worse lately History of Any Multi-Drug Resistant Organisms: MRSA Date of last positivie culture/infection: 1989 MDRO Source:: rt knee Past Surgical History: Appendectomy, Back Surgery, Bariatric Surgery, Bowel Resection, Breast Surgery, Cholecystectomy, Hernia Repair, Hysterectomy, Joint Replacement, Orthopedic Surgery, Tonsillectomy, Tubal Ligation Additional Past Surgical History / Comment(s): Bilateral mastectomy/lymph nodes out on left side, thyroidectomy, thymectomy, back surgery X8, Gastric Bypass Surgery ([place]-en-[place]) 2005 at [facility], bowel resection due to perforation, incisional hernia repair, ventral hernia repair, colonoscopy, right ankle surgery X2, left breast biopsy, tummy tuck, thyroid biopsy, knee arthroscopy (unsure which), biopsy right clavicle, right hip replacement X3, EGD WITH DILATATION, robotic laproscopic lysis of adhesions 04-07-22. ORIF left wrist, right shoulder replaced 2023 Past Anesthesia/Blood Transfusion Reactions: No Reported Reaction Additional Past Anesthesia/Blood Transfusion Reaction / Comment(s): Hx blood transfusions with no problems. Smoking Status: Former smoker - Past Family History Mother Family Medical History: Cancer Additional Family Medical History / Comment(s): Breast cancer. Father Family Medical History: Coronary Artery Disease (CAD), Hypertension Additional Family Medical History / Comment(s): CABG 2015 Sister(s) Family Medical History: Cancer Additional Family Medical History / Comment(s): BREAST CANCER. Medications and Allergies Home Medications Medication Instructions Recorded Confirmed Type Budesonide-Formot 160-4.5 Mcg 2 puff INHALATION BID 03/28/15 12/12/24 History [Symbicort 160-4.5 Mcg Inhaler] Potassium Chloride ER [K-Dur 20] 20 meq PO DAILY 02/08/16 12/12/24 History Alendronate Sodium [Fosamax] 70 mg PO MO 01/28/19 12/12/24 History buPROPion XL [Wellbutrin XL] 100 mg PO TID 01/28/19 12/12/24 History ALPRAZolam [Xanax] 2 mg PO QID PRN 12/20/20 12/12/24 History Dextroamphetamine/Amphetamine 20 mg PO BID PRN 12/20/20 12/12/24 History [Adderall] Levothyroxine Sodium [Synthroid] 175 mcg PO QAM 12/20/20 12/12/24 History Metoprolol Tartrate [Lopressor] 25 mg PO BID 12/20/20 12/12/24 History Ergocalciferol [Vitamin D2 (1250 1,250 mcg PO TU 03/05/22 12/12/24 History Mcg = 03592 Iu)] Pantoprazole [Protonix] 40 mg PO BID 05/22/22 12/12/24 History Secukinumab [Cosentyx Syringe] 75 mg SQ Q30D 12/12/24 12/12/24 History Sucralfate [Carafate] 1 gm PO ACHS 12/12/24 12/12/24 History oxyCODONE-APAP 7.5-325MG [Percocet 1 tab PO TID 12/12/24 12/12/24 History 7.5-325 mg] Allergies Allergy/AdvReac Type Severity Reaction Status Date / Time ibuprofen Allergy Severe GI bleed Verified 12/12/24 08:58 Iodinated Contrast Media Allergy Unknown Rash/Hives Verified 12/12/24 08:58 [Iodinated Contrast Media - IV Dye] Penicillins Allergy Rash/Hives/ Verified 12/12/24 08:58 VOMITING tetracycline Allergy Rash/Hives/ Verified 12/12/24 08:58 VOMITING duloxetine HCl AdvReac Nausea & Verified 12/12/24 08:58 [From Cymbalta] Vomiting gabapentin AdvReac Unknown Verified 12/12/24 08:58
[2024-12-14] MEDS: IV FLUID CONTINUATION 1,000 ML IV ONE (08:25)
[2024-12-14] MEDS ORDERED: PROPOFOL 10 MG/ML 20 ML VIAL IV ONE (08:39)
[2024-12-14 08:42] VITALS: RESP 16; TEMP 97.9
[2024-12-14 08:44] LABS: Glucose,Whole Blood 90 mg/dL (70-110)
--- NOTE | 2024-12-14 09:05 | P.PCN ---
Date of Procedure: 12/14/24 Description of Procedure: PREOPERATIVE DIAGNOSIS: Dysphagia. Atypical chest pain POSTOPERATIVE DIAGNOSIS: Dysphagia. Gastrojejunal stricture without chronic ulcer without perforation OPERATION: Esophagogastrojejunoscopy with balloon dilatation from 18 to 20 mm. Esophagogastrojejunoscopy with cold forcep biopsies jejunum, gastric pouch and esophagus SURGEON: Jacy Maldonado MD ANESTHESIA: MAC. INDICATIONS: The patient is a 54-year-old female who presents with dysphagia, atypical chest pain. Benefits and risks of the procedure were described. Informed consent was obtained. DESCRIPTION: The patient was brought into the endoscopy suite and laid in the left lateral decubitus position. After a timeout was confirmed, the procedure was initiated. An Olympus gastroscope was passed along the posterior oropharynx down to the distal esophagus where the squamocolumnar junction was unremarkable. The gastric pouch was entered. A gastrojejunal stricture of 18 mm was found as the adult gastroscope was 9.5 mm in size. A Escapio balloon dilator was placed through the scope. Final insufflation up to 20 mm was performed with a total of 2 minutes. The scope was advanced up to 60 cm from the incisors into the Mynor limb. The mucosa of the gastrojejunal anastomosis was intact. No chronic gastrojejunal marginal ulcer was encountered. Biopsies were obtained of the jejunum, gastric pouch and esophagus. No full-thickness injury was encountered. The GI tract was desufflated. The patient tolerated the procedure well. FINDINGS: LA grade B erosive esophagitis Stricture of approximately 18 mm encountered. No chronic gastrojejunal ulceration encountered. Successful balloon dilatation to 20 mm. Cold forcep biopsies obtained and jejunum, gastric pouch and esophagus RECOMMENDATIONS: Upper endoscopy as needed.
--- NOTE | 2024-12-14 09:36 | P.PCN ---
Date of Procedure: 12/14/24 Description of Procedure: PREOPERATIVE DIAGNOSIS: History of colon cancer History of right colectomy History of GI bleed POSTOPERATIVE DIAGNOSIS: History of colon cancer History of right colectomy History of GI bleed with foreign body OPERATION: Colonoscopy to the ileocolic anastomosis and retained Hemoclip SURGEON: Jacy Maldonado MD. ANESTHESIA: MAC. INDICATIONS: The patient is a 54-year-old female who presents for colonoscopy surveillance for history of colon cancer. Benefits and risks were described and informed consent was obtained. DESCRIPTION OF PROCEDURE: The patient had undergone Suprep. The patient had been brought into the operating room and laid in the left lateral decubitus position. After adequate intravenous sedation, the rectum was examined with 2% lidocaine jelly. External hemorrhoids were encountered. The rectal tone was within normal limits. No lesions were palpated in the rectal vault. An Olympus colonoscope was advanced until the cecum, ileocecal valve and appendiceal orifice were clearly viewed. The prep was good. No scattered diverticulosis was encountered. No colonic polyps were found. Routine Hemoclip at ascending colon identified. No evidence of focal colitis was found. Retroflexion of the scope demonstrated grade 1 internal hemorrhoids without active bleeding or inflammation. The colon was desufflated. The patient had tolerated the procedure well. Withdrawal time was over 6 minutes. FINDINGS: Aronchick preparation quality scale 1+ (1-5) Internal hemorrhoids, grade 1 External prolapsed hemorrhoids. No arteriovenous malformations. No adenomatous polyps. Retained Hemoclip ascending colon identified and undisturbed No focal colitis. RECOMMENDATIONS: Lower endoscopy in 3 years, 2027 Plan - Discharge Summary Discharge Rx Participant: No New Discharge Prescriptions: Continue Budesonide-Formot 160-4.5 Mcg [Symbicort 160-4.5 Mcg Inhaler] 2 puff INHALATION BID Potassium Chloride ER [K-Dur 20] 20 meq PO DAILY buPROPion XL [Wellbutrin XL] 100 mg PO TID Alendronate Sodium [Fosamax] 70 mg PO MO ALPRAZolam [Xanax] 2 mg PO QID PRN PRN Reason: Anxiety Dextroamphetamine/Amphetamine [Adderall] 20 mg PO BID PRN PRN Reason: ADHD Levothyroxine Sodium [Synthroid] 175 mcg PO QAM Metoprolol Tartrate [Lopressor] 25 mg PO BID Pantoprazole [Protonix] 40 mg PO BID Secukinumab [Cosentyx Syringe] 75 mg SQ Q30D Ergocalciferol [Vitamin D2 (1250 Mcg = 92527 Iu)] 1,250 mcg PO TU oxyCODONE-APAP 7.5-325MG [Percocet 7.5-325 mg] 1 tab PO TID Sucralfate [Carafate] 1 gm PO ACHS Discharge Medication List Budesonide-Formot 160-4.5 Mcg [Symbicort 160-4.5 Mcg Inhaler] 2 puff INHALATION BID 03/28/15 [History] Potassium Chloride ER [K-Dur 20] 20 meq PO DAILY 02/08/16 [History] Alendronate Sodium [Fosamax] 70 mg PO MO 01/28/19 [History] buPROPion XL [Wellbutrin XL] 100 mg PO TID 01/28/19 [History] ALPRAZolam [Xanax] 2 mg PO QID PRN 12/20/20 [History] Dextroamphetamine/Amphetamine [Adderall] 20 mg PO BID PRN 12/20/20 [History] Levothyroxine Sodium [Synthroid] 175 mcg PO QAM 12/20/20 [History] Metoprolol Tartrate [Lopressor] 25 mg PO BID 12/20/20 [History] Ergocalciferol [Vitamin D2 (1250 Mcg = 83044 Iu)] 1,250 mcg PO TU 03/05/22 [History] Pantoprazole [Protonix] 40 mg PO BID 05/22/22 [History] Secukinumab [Cosentyx Syringe] 75 mg SQ Q30D 12/12/24 [History] Sucralfate [Carafate] 1 gm PO ACHS 12/12/24 [History] oxyCODONE-APAP 7.5-325MG [Percocet 7.5-325 mg] 1 tab PO TID 12/12/24 [History] Follow up Appointment(s)/Referral(s): Jacy Maldonado MD [STAFF PHYSICIAN] - 01/10/25 1:30 pm Patient Instructions/Handouts: Esophageal Dilation (DC) Activity/Diet/Wound Care/Special Instructions: Repeat colonoscopy 3 years, 2027 Discharge Disposition: HOME SELF-CARE
[2024-12-14 09:49] VITALS: BP 101/67; PULSE 68
== END 2024-12-14 10:27 | disposition home or self-care (01) ==
LOC: ORWHC2ENDO 07:45
PROVIDERS: ATTEND Surgery Plastic and Reconstructive Surgery
DX: Z12.11 Encounter for screening for malignant neoplasm of colon (principal); K29.50 Unspecified chronic gastritis without bleeding; K21.00 Gastro-esophageal reflux disease with esophagitis, without bleeding; K56.609 Unspecified intestinal obstruction, unspecified as to partial versus complete obstruction; Z87.19 Personal history of other diseases of the digestive system; Z85.038 Personal history of other malignant neoplasm of large intestine; K64.0 First degree hemorrhoids; K64.8 Other hemorrhoids; J44.9 Chronic obstructive pulmonary disease, unspecified; Z86.73 Personal history of transient ischemic attack (TIA), and cerebral infarction without residual deficits; E11.9 Type 2 diabetes mellitus without complications; E78.5 Hyperlipidemia, unspecified; I10 Essential (primary) hypertension; Z98.84 Bariatric surgery status; Z87.891 Personal history of nicotine dependence; Z79.51 Long term (current) use of inhaled steroids; Z79.890 Hormone replacement therapy; Z88.0 Allergy status to penicillin; Z88.8 Allergy status to other drugs, medicaments and biological substances
CPT/HCPCS: 45378; 43239; 43248; J2704; C1726; 88305

== ENCOUNTER → 2025-05-12 | Outpatient (CLI) | payer MEDICARE, OTHER | END | disposition home or self-care (01) | LOC: LABWHC1 13:50 | PROVIDERS: ATTEND Physician Assistant Medical | DX: L40.0 Psoriasis vulgaris (principal); Z79.899 Other long term (current) drug therapy | CPT/HCPCS: 36415; 86480 ==